=== PATIENT | male | born 1950 | race Caucasian/White ===

== ENCOUNTER 2017-09-19 19:40 | Inpatient (IN) | payer OTHER ==
[2017-09-19 19:44] VITALS: BMI 26.9
--- NOTE | 2017-09-19 20:00 | EDPD ---
HPI Stroke - General Time Seen by Provider: 09/19/17 19:45 Chief Complaint: Weakness/Neurological Deficit - History of Present Illness Narrative History of Present Illness (Free Text): 09/19/17 19:53 No Morin is a 67 year old male brought in by EMS, whose past medical history includes coronary artery bypass, CAD, hypertension, seizure disorder, paroxysmal atrial fibrillation, and hypercholesterolemia, with complaint of left arm numbness, weakness, and discomfort for the past couple of days. Patient also with noted left sided facial drooping onset unclear possibly just prior to arrival. Patient denies any chest pain, nausea, vomiting, diarrhea, shortness of breath, or any other complaint at this time. Onset:: Days Timing: Currently Symptomatic Context: Home Associated Symptoms: Numbness rTPA Inclusion/Exclusion - Refusal of Treatment Patient Refused Treatment: No - Inclusion Criteria for Altepase Patient is 18 years or Older: Yes The Clinical Diagnosis of Ischemic Stroke That is Causing a Potentially Disabling Neurological Deficit: No Time of Onset is Well Established to be Less Than 270 Minute Before Treatment Would Begin: No Risk/Benefit Discussed With Patient/Family Member Present: Yes - Exclusion Criteria for Altepase Uncontrolled Hypertension at Time of Treatment (Systolic BP above 185 or Diastolic BP above 110 mmHg): No Active Internal Bleeding: No Known Bleeding Diathesis Including but Not Limited to: Platelets Below 100,000/ mm,PTT Above 40 sec After Heparin Use, Current Use of Oral Anitcoagulant With INR Greater Than 1.7 or PT Greater Than 15 secs: No Evidence of an Intracranial Hemorrhage: No Evidence of Major Acute Infarct With Signs Greater Than 1/3 MCA Territory: No Suspicion of Subarachnoid Hemorrhage on Pretreatment Evaluation Even if CT Head Negative For Hemorrhage: No - Warning to TPA With Conditions Following Conditions Weighed Against Anticipated Benefit: No Condition: Stroke Serevity Too Mild Past Medical History - Provider Review Nursing Documentation Reviewed: Yes - Cardiac Hx Hypertension: Yes - Pulmonary Hx Respiratory Disorders: No Hx Asthma: No Hx Chronic Obstructive Pulmonary Disease (COPD): No Hx Emphysema: No - Neurological HX Cerebrovascular Accident: Yes - Renal Hx Renal Disorder: No - Endocrine/Metabolic Hx Endocrine Disorders: No - Hematological/Oncological Hx Anemia: No Hx Cancer: No - Musculoskeletal/Rheumatological Hx Falls: No - Gastrointestinal Hx Gastrointestinal Disorders: No - Psychiatric Hx Depression: No Hx Emotional Abuse: No Hx Physical Abuse: No Hx Substance Use: No - Surgical History Hx Arteriovenous Shunt: Yes Hx Coronary Artery Bypass Graft: Yes - Suicidal Assessment Feels Threatened In Home Enviroment: No Allergies/Home Meds Allergies/Adverse Reactions: Allergies No Known Allergies Allergy (Verified 01/27/12 13:30) Home Medications: Home Meds Medication Instructions Recorded Confirmed Amlodipine Besylate 10 mg PO DAILY 01/27/12 09/20/17 Enalapril Maleate [Enalapril] 20 mg PO DAILY 01/27/12 09/20/17 Metoprolol Succinate 50 mg PO DAILY 01/27/12 09/20/17 Review of Systems - Physician Review All systems were reviewed & negative as marked: Yes - Review of Systems Constitutional: absent: Fevers, Night Sweats Eyes: absent: Vision Changes ENT: absent: Hearing Changes Respiratory: absent: SOB, Cough Cardiovascular: absent: Chest Pain Gastrointestinal: absent: Abdominal Pain Genitourinary Male: absent: Dysuria Musculoskeletal: absent: Arthralgias Skin: absent: Rash, Pruritis Neurological: Other (Left arm numbness, weakness, and discomfort) Endocrine: absent: Diaphoresis Hemo/Lymphatic: absent: Adenopathy Psychiatric: absent: Anxiety, Depression ED Stroke Physical Exam Vital Signs Reviewed: Yes Mental Status: Positive for: Alert and Oriented X 3 - Systems Exam Head: Present: Atraumatic, Normocephalic Pupils: Present: PERRL Extroacular Muscles: Present: EOMI Conjunctiva: Present: Normal Mouth: Present: Moist Mucous Membranes Neck: Present: Normal Range of Motion Respiratory/Chest: Present: Clear to Auscultation, Good Air Exchange. No: Respiratory Distress, Accessory Muscle Use Cardiovascular: Present: Regular Rate and Rhythm, Normal S1, S2. No: Murmurs Abdomen: Present: Normal Bowel Sounds. No: Tenderness, Distention, Peritoneal Signs Back: Present: GCS, CN, SP Upper Extremity: Present: Normal Inspection, Normal ROM, Neurovascularly Intact. No: Cyanosis, Edema Lower Extremity: Present: Normal Inspection. No: Edema Neurologic: Present: GCS=15, Speech Normal, Motor Func Grossly Intact, Normal Sensory Function, Normal Cerebellar Funct, Norm Deep Tendon Reflexes, Gait Normal, Memory Normal, Normal 2Pt Descrimination, Facial Droop (Left-sided/ sparing of frontalis muscle) Skin: Present: Warm, Dry, Normal Color. No: Rashes Lymphatic: Present: OX3, NI, NC Psychiatric: Present: Alert, Oriented x 3, Normal Insight, Normal Concentration Medical Decision Making ED Course and Treatment: 09/19/17 20:29 Impression: 67 year old complaint of left arm numbness, weakness, and discomfort for the past couple of days. Differential Diagnosis included but are not limited to: CVA Plan: -- Head CT w/o contrast -- Chest X-ray -- EKG -- Type and Screen -- Labs -- Reassess and disposition Progress Notes: EKG: Ordered, reviewed, and independently interpreted the EKG. Rate : 104 BPM Rhythm : Atrial fibrillation Interpretation : Non-specific T wave changes. 09/19/17 19:45 Following exam, code stroke was called. 09/19/17 20:10 Case discussed with neurologist Dr. Lozoya. If no evidence of cerebral bleed, patient to be given 81mg. asa/300 Plavix. 09/19/17 20:45 CT Head IMPRESSION: 1. There is a small lacunar infarct within the superior left basal ganglia and paraventricular region, suggestive of a subacute infarct. An additional subacute lacunar infarct is identified within the left basal ganglia posteriorly. If there is a clinical concern for acute ischemic change, MRI is recommended. 2. There is a large area of hypodense encephalomalacia within the right cerebral hemisphere, consistent with an old right MCA infarct. A small chronic infarct is visualized within the left cerebellar lobe. 3. No acute intracranial hemorrhage. 4. There are scattered foci of hypodensity within the cerebral white matter, likely representing small vessel ischemic disease in a patient this age. 5. Atrophy. 6. Paranasal sinus disease is noted above. 09/19/17 20:50 CT Scan results discussed with Dr. Lozoya, pt not a candidate for tPA due to mild clinical findings and underlying history of a fib. Pt given ASA/Plavix, as previously recommended. Pt remains stable at this time. 09/19/17 21:03 Chest X-ray reviewed, shows no acute processes. Case discussed with Dr. Sauceda, who is aware and agrees with plan. Accepts pt in to her service. Pt will be admitted to Telemetry for CVA. Requests Dr. Allen and Dr. Lozoya on consult. - Lab Interpretations I have reviewed the lab results: Yes - RAD Interpretation Radiology Orders: 09/19/17 19:51 HEAD W/O (CODE STROKE) [CT] Stat CHEST PORTABLE [RAD] Stat Hat Trimmer: ED Physician, Radiologist - EKG Interpretation Interpreted by ED Physician: Yes Type: 12 lead EKG - Scribe Statement The provider has reviewed the documentation as recorded by the Johnie Shirley Provider Scribe Attestation: All medical record entries made by the Scribe were at my direction and personally dictated by me. I have reviewed the chart and agree that the record accurately reflects my personal performance of the history, physical exam, medical decision making, and the department course for this patient. I have also personally directed, reviewed, and agree with the discharge instructions and disposition. NIHSS Scale ([place]) Time Performed: 19:55 - How Severe is the Stoke Baseline Level of Consciousness: 0=Alert LOC to Questions: 0=Both comments correct LOC to commands: 0=Obeys both correctly Best Gaze: 0=Normal Visual: 0=No visual loss Facial: 2=Partial (lower face paralysis) Motor Arm - Left: 0=No drift Motor Arm - Right: 0=No drift Motor Leg - Left: 0=No drift Motor Leg - Right: 0=No drift Limb Ataxia: 0=Absent Sensory: 0=Normal Best Language: 0=No aphasia Dysarthia: 0=Normal articulation Extinction & Inattention (Neglect): 0=Normal, no object Score: 2 Risk Level: Minor Stroke Risk Disposition/Present on Arrival - Present on Arrival Any Indicators Present on Arrival: No History of DVT/PE: No History of Uncontrolled Diabetes: No Urinary Catheter: No History of Decub. Ulcer: No History Surgical Site Infection Following: None - Disposition Have Diagnosis and Disposition been Completed?: Yes Diagnosis: CVA (cerebral vascular accident) Disposition: HOSPITALIZED Disposition Time: 21:08 Patient Plan: Admission Patient Problems: Current Active Problems Problem Status Onset CVA (cerebral vascular accident) Acute Condition: STABLE
--- NOTE | 2017-09-19 20:32 | CT ---
EXAM: CT Head Without Intravenous Contrast EXAM DATE/TIME: 09/19/2017 7:51 PM CLINICAL HISTORY: The patient age is 67 years old and is male; Signs and symptoms; Weakness, facial; Additional info: Code stroke Facility exam id and description: Ct headstroke head w/o (code stroke) TECHNIQUE: Axial computed tomography images of the head/brain without intravenous contrast. All CT scans at this facility use one or more dose reduction techniques, viz.: automated exposure control; ma/kV adjustment per patient size (including targeted exams where dose is matched to indication; i.e. head); or iterative reconstruction technique. Coronal and sagittal reformatted images were created and reviewed. COMPARISON: No relevant prior studies available. FINDINGS: Brain: There is a small lacunar infarct within the superior left basal ganglia and paraventricular region, suggestive of a subacute infarct. An additional subacute lacunar infarct is identified within the left basal ganglia posteriorly. There is a large area of hypodense encephalomalacia within the right cerebral hemisphere, consistent with an old right MCA infarct. A small chronic infarct is visualized within the left cerebellar lobe. There are scattered foci of hypodensity within the cerebral white matter, likely representing small vessel ischemic disease in a patient this age. The acuity of the white matter disease is indeterminate. There is prominence of the ventricles and sulci, compatible with atrophy. No acute intracranial hemorrhage is seen. Midline shift: There is no midline shift. Ventricles: See above. Bones/joints: The calvarium demonstrates no evidence for a depressed fracture. Soft tissues: No acute abnormality. Vasculature: There is atherosclerotic calcification of the cavernous internal carotid arteries and distal vertebral arteries. Sinuses: Mucosal thickening with mucous retention cysts or polyps are visualized within the left maxillary sinus. Mastoid air cells: No mastoid effusion. IMPRESSION: 1. There is a small lacunar infarct within the superior left basal ganglia and paraventricular region, suggestive of a subacute infarct. An additional subacute lacunar infarct is identified within the left basal ganglia posteriorly. If there is a clinical concern for acute ischemic change, MRI is recommended. 2. There is a large area of hypodense encephalomalacia within the right cerebral hemisphere, consistent with an old right MCA infarct. A small chronic infarct is visualized within the left cerebellar lobe. 3. No acute intracranial hemorrhage. 4. There are scattered foci of hypodensity within the cerebral white matter, likely representing small vessel ischemic disease in a patient this age. 5. Atrophy. 6. Paranasal sinus disease is noted above.
[2017-09-19 20:56] LABS: BASO # 0.02 K/mm3 (0.0-2.0); BASO % 0.2 % (0.0-3.0); EOS # 0.2 (0.0-0.7); EOS % 1.9 % (1.5-5.0); GRAN # 4.57 (1.4-6.5); GRAN % 55.6 % (50.0-68.0); HEMOGLOBIN 15.2 g/dL (14.0-18.0); LYMPH # 2.7 (1.2-3.4); LYMPH % 32.8 % (22.0-35.0); MEAN CELL VOLUME 93.8 fl (80.0-105.0); MEAN CORPUSCULAR HEMOGLOBIN 31.3 pg (25.0-35.0); MEAN CORPUSCULAR HGB CONC 33.4 g/dl (31.0-37.0); MEAN PLATELET VOLUME 10.4 fl (7.0-11.0); MONO # 0.8 (0.1-0.6); MONO % 9.5 % (1.0-6.0); RBC 4.85 10^6/uL (3.5-6.1); RED CELL DISTRIBUTION WIDTH 12.9 % (11.5-14.5); WHITE BLOOD COUNT 8.2 10^3/ul (4.5-11.0)
[2017-09-19 21:06] LABS: ALB/GLOB RATIO 1.2 (1.1-1.8); ALBUMIN 4.3 g/dL (3.0-4.8); ALT/SGPT 33 U/L (7-56); AST/SGOT 27 U/L (17-59); BLOOD UREA NITROGEN 16 mg/dL (7-21); CALCIUM 9.7 mg/dL (8.4-10.5); GFR AFRICAN-AMERICAN > 60; GFR NON-AFRICAN AMERICAN > 60; HDL CHOLESTEROL 41 mg/dL (29-60)
[2017-09-19 21:12] LABS: INR 1.33 (0.93-1.08); PROTHROMBIN TIME 15.2 SECONDS (9.4-12.5)
[2017-09-19 21:13] LABS: PARTIAL THROMBOPLASTIN TIME 31.9 Seconds (25.1-36.5)
[2017-09-19 21:16] LABS: TROPONIN I < 0.01 ng/mL
[2017-09-19 21:17] LABS: LDL CHOLESTEROL 138 mg/dL (0-129)
[2017-09-19] MEDS ORDERED: Sodium Chloride 0.9% 1,000 ML IV STA (21:31)
[2017-09-20] MEDS ORDERED: levETIRAcetam 1,000 MG in Sodium Chloride 0.9% 100 ML IV STA (04:50)
[2017-09-20] MEDS ORDERED: Metoprolol 1 mg/ml Inj IVP ONE (05:18)
--- NOTE | 2017-09-20 06:34 | PCM.RRT ---
<Rolando Pan - Last Filed: 09/20/17 06:31> POINTER MACHINE OPERATOR Nurse Assessment - Situation Date: 09/20/17 Time POINTER MACHINE OPERATOR was called: 04:44 POINTER MACHINE OPERATOR Responder Arrival Time: 04:46 POINTER MACHINE OPERATOR Location:: [address] [place] [address] Room Number: [id number] POINTER MACHINE OPERATOR Reason for Call: Change in Mental Status POINTER MACHINE OPERATOR Called By: RN - IV IV Inserted during POINTER MACHINE OPERATOR?: No - Respiratory Oxygen Delivery Method: Nasal Cannula @L/min Oxygen Flow Rate: 2 Received Nebulizer Treatments:: No Was the Patient Ventilated with Bag/Mask 100% O2?: No Secretions Suctioned?: Yes Was the Patient Intubated?: No Was the Patient Placed on a Ventilator?: No - Medication Medications Administered During POINTER MACHINE OPERATOR: Keppra 1,000mg IV - Diagnostic Test Ordered EKG: No Chest X-Ray: No CT Scan: No CPR started during POINTER MACHINE OPERATOR?: No - Vital Signs Vital Sign: Rapid Response Vital Sign Blood Pressure 148/109 Pulse Rate 154 Respiratory Rate 24 Oxygen Saturation 96 - Finger Stick Blood Glucose Finger Stick Blood Glucose: 112 - Time POINTER MACHINE OPERATOR Ended Time POINTER MACHINE OPERATOR Ended: 04:57 - Vital Signs at end of POINTER MACHINE OPERATOR Vital Signs at end of POINTER MACHINE OPERATOR: Rapid Response End Vital Sign Blood Pressure 168/102 Pulse Rate 153 Respiratory Rate 22 O2 Sat by Pulse Oximetry 94 - Respiratory Oxygen Delivery Method: Nasal Cannula @L/min Oxygen Flow Rate: 2 - Constitutional Appears: No Acute Distress - Eyes Eye Exam: Normal appearance - Respiratory Exam Respiratory Exam: NORMAL BREATHING PATTERN - Cardiovascular Exam Cardiovascular Exam: Irregular Rhythm - Neurological Exam Neurological Exam: Alert, Awake Plan - Assessment of Findings&Treatment Plan POINTER MACHINE OPERATOR was called because nursing staff witnessed seizure. Upon arrival patient was post ictal. Chart reviewed, patient started on Keppra, rhythm was monitored on the telemetry. Also given lopressor 2.5 BID, patient vitals stable. <Jameel Zamudio - Last Filed: 09/21/17 01:17> POINTER MACHINE OPERATOR Nurse Assessment - Vital Signs Vital Sign: Rapid Response Vital Sign Blood Pressure 148/109 Pulse Rate 154 Respiratory Rate 24 Oxygen Saturation 96 - Vital Signs at end of POINTER MACHINE OPERATOR Vital Signs at end of POINTER MACHINE OPERATOR: Rapid Response End Vital Sign Blood Pressure 168/102 Pulse Rate 153 Respiratory Rate 22 O2 Sat by Pulse Oximetry 94
[2017-09-20 07:34] LABS: BASO # 0.01 K/mm3 (0.0-2.0); BASO % 0.2 % (0.0-3.0); EOS % 0.5 % (1.5-5.0); GRAN # 5.32 (1.4-6.5); GRAN % 80.2 % (50.0-68.0); LYMPH # 0.8 (1.2-3.4); LYMPH % 12.2 % (22.0-35.0); MEAN CELL VOLUME 91.6 fl (80.0-105.0); MEAN CORPUSCULAR HEMOGLOBIN 30.9 pg (25.0-35.0); MEAN CORPUSCULAR HGB CONC 33.7 g/dl (31.0-37.0); MEAN PLATELET VOLUME 10.2 fl (7.0-11.0); MONO # 0.5 (0.1-0.6); MONO % 6.9 % (1.0-6.0); RBC 4.53 10^6/uL (3.5-6.1); RED CELL DISTRIBUTION WIDTH 12.8 % (11.5-14.5); WHITE BLOOD COUNT 6.6 10^3/ul (4.5-11.0)
[2017-09-20 07:55] LABS: BLOOD UREA NITROGEN 12 mg/dL (7-21); CALCIUM 9.2 mg/dL (8.4-10.5); GFR AFRICAN-AMERICAN > 60; GFR NON-AFRICAN AMERICAN > 60
--- NOTE | 2017-09-20 08:16 | RAD ---
PROCEDURE: CHEST RADIOGRAPH, 1 VIEW HISTORY: cva COMPARISON: 04/14/2017 FINDINGS: LUNGS: Clear. PLEURA: No pneumothorax or pleural fluid seen. CARDIOVASCULAR: Moderate cardiomegaly OSSEOUS STRUCTURES: Sternal wires VISUALIZED UPPER ABDOMEN: Normal. OTHER FINDINGS: None. IMPRESSION: No active disease.
[2017-09-20] MEDS ORDERED: Metoprolol Succinate 50 mg XL Tab PO SCH (10:00)
[2017-09-20] MEDS ORDERED: Potassium Chloride 20 mEq ER Tab PO ONE (10:23)
--- NOTE | 2017-09-20 10:59 | CARD ---
APPROVED REPORT EKG Measurement Heart [id number] <Conclusion> Atrial fibrillation with rapid ventricular response Nonspecific T wave abnormality, probably digitalis effect Abnormal ECG
--- NOTE | 2017-09-20 17:40 | CP.PCM.CON ---
History of Present Illness - History of Present Illness History of Present Illness: Mr. Morin is a 67-year-old man with a past medical history of previous CVA, atrial fibrillation, seizure disorder, who presented to the ED with worsening weakness. This morning an ASSISTANT HEALTH EDUCATOR was called after he was found to have a generalized tonic-clonic seizure and post ictal state. He was given Keppra 1000 mg and has not had any other seizures since. Currently, the patient is back to baseline and informed me that he has a history of seizures, but had stopped his AED because he felt he was taking too many medications. His daughter helps him with his meds. He states that his current left side weakness is similar to baseline. He had no other complaints and said that he is feeling better now. Review of Systems - Review of Systems All systems: reviewed and no additional remarkable complaints except Past Patient History - Past Social History Smoking Status: Never Smoked - CARDIAC Hx Cardiac Disorders: Yes Hx Hypertension: Yes - PULMONARY Hx Respiratory Disorders: No Hx Asthma: No Hx Chronic Obstructive Pulmonary Disease (COPD): No Hx Emphysema: No - NEUROLOGICAL HX Cerebrovascular Accident: Yes - RENAL Hx Chronic Kidney Disease: No - ENDOCRINE/METABOLIC Hx Endocrine Disorders: No - HEMATOLOGICAL/ONCOLOGICAL Hx Anemia: No Hx Cancer: No - MUSCULOSKELETAL/RHEUMATOLOGICAL Hx Falls: No - GASTROINTESTINAL Hx Gastrointestinal Disorders: No - PSYCHIATRIC Hx Depression: No Hx Emotional Abuse: No Hx Physical Abuse: No Hx Substance Use: No - SURGICAL HISTORY Hx Arteriovenous Shunt: Yes Hx Coronary Artery Bypass Graft: Yes Meds Allergies/Adverse Reactions: Allergies Allergy/AdvReac Type Severity Reaction Status Date / Time No Known Allergies Allergy Verified 01/27/12 13:30 - Medications Medications: Current Medications Apixaban (Eliquis) 5 mg PO BID [facility] PRN Reason: Protocol Last Admin: 09/20/17 13:05 Dose: 5 mg Aspirin (Aspirin Chewable) 81 mg PO DAILY [facility] Last Admin: 09/20/17 12:58 Dose: 81 mg Atorvastatin Calcium (Lipitor) 20 mg PO DAILY [facility] Last Admin: 09/20/17 12:59 Dose: 20 mg Diltiazem HCl (Cardizem) 30 mg PO QID [facility] Last Admin: 09/20/17 15:33 Dose: 30 mg Lisinopril (Zestril) 20 mg PO DAILY [facility] Last Admin: 09/20/17 13:00 Dose: 20 mg Metoprolol Succinate (Toprol Xl) 50 mg PO DAILY [facility] Last Admin: 09/20/17 13:00 Dose: Not Given Metoprolol Tartrate (Lopressor) 25 mg PO BID [facility] Last Admin: 09/20/17 12:59 Dose: 25 mg Physical Exam - Constitutional Appears: Well - Head Exam Head Exam: ATRAUMATIC, NORMAL INSPECTION, NORMOCEPHALIC - Eye Exam Eye Exam: EOMI, Normal appearance, PERRL - ENT Exam ENT Exam: Mucous Membranes Moist, Normal Exam - Cardiovascular Exam Cardiovascular Exam: REGULAR RHYTHM, +S1, +S2 - GI/Abdominal Exam GI & Abdominal Exam: Normal Bowel Sounds, Soft. absent: Tenderness - Rectal Exam Rectal Exam: Deferred - Neurological Exam Neurological exam: Abnormal Gait, CN II-XII Intact, Oriented x3 Additional comments: Left side weakness as compared to the right (4/5 strength), right side is full in strength, sensation is normal to LT/P throughout, reflexes are brisk on the right, slight right facial droop noted. Plantar response is upgoing on the right. NIHSS= 4 Results - Vital Signs Recent Vital Signs: Last Vital Signs Temp 97.1 F L 09/20/17 12:00 Pulse 77 09/20/17 15:33 Resp 20 09/20/17 12:00 BP 148/73 09/20/17 15:33 Pulse Ox 99 09/20/17 06:00 - Labs Result Diagrams: 09/20/17 06:45 09/20/17 06:45 Labs: Laboratory Results - last 24 hr 09/20/17 09/20/17 09/20/17 04:47 06:45 06:45 WBC 6.6 RBC 4.53 Hgb 14.0 Hct 41.5 L MCV 91.6 MCH 30.9 MCHC 33.7 RDW 12.8 Plt Count 162 MPV 10.2 Gran % 80.2 H Lymph % (Auto) 12.2 L [place] % (Auto) 6.9 H Eos % (Auto) 0.5 L Baso % (Auto) 0.2 Gran # 5.32 Lymph # 0.8 L [place] # 0.5 Eos # 0.0 Baso # 0.01 Sodium Potassium Chloride Carbon Dioxide Anion Gap BUN Creatinine Est GFR ( Amer) Est GFR (Non-Af Amer) POC Glucose (mg/dL) 112 H Random Glucose Calcium Blood Type Confirm O POSITIVE 09/20/17 09/20/17 06:45 16:15 WBC RBC Hgb Hct MCV MCH MCHC RDW Plt Count MPV Gran % Lymph % (Auto) [place] % (Auto) Eos % (Auto) Baso % (Auto) Gran # Lymph # [place] # Eos # Baso # Sodium 139 Potassium 3.3 L Chloride 102 Carbon Dioxide 24 Anion Gap 16 BUN 12 Creatinine 0.7 L Est GFR ( Amer) > 60 Est GFR (Non-Af Amer) > 60 POC Glucose (mg/dL) 108 Random Glucose 140 H Calcium 9.2 Blood Type Confirm Assessment & Plan (1) Seizure Assessment and Plan: He seems to be at his baseline now. He may have had a seizure and post-ictal state with Hayes's paralysis. However, it is also possible with his history of atrial fibrillation, that he may have had a new infarct. I recommend the followin. Telemetry 2. MRI/MRA of the brain without contrast 3. Continue Keppra 500 mg BID for seizure prophylaxis 4. Continue Eliquis 5 mg BID for stroke prevention 5. PT/OT eval and treatment 6. SCD for DVT Px 7. Echocardiogram with bubble study 8. Fluids with NS at 100 mL/hr 9. Increase Lipitor to 40 mg daily to reduce LDL to below 70 10. Case management consult Thank you. Status: Acute Priority: High
--- NOTE | 2017-09-20 19:04 | CON ---
DATE: 09/20/2017 CONSULT SERVICE: Cardiology. REASON FOR CONSULTATION AND FOLLOWUP: Cardiac evaluation, admitted with possible CVA, history of coronary artery disease with coronary artery bypass surgery. HISTORY OF PRESENT ILLNESS: This is a 67-year-old male with a past medical history of coronary artery disease, possible CABG, hypertension, seizure disorder, paroxysmal atrial fibrillation, and hyperlipidemia brought because of the complaints of numbness. The patient is a very poor historian, information is obtained from the chart. The patient has a left facial droop. While the patient was in the floor, he had seizure and the heart rate went up to 180, Cardiology consult was called. The patient denies any chest pain. Denies any shortness of breath. Denies any palpitation. PAST MEDICAL HISTORY: Significant for coronary artery disease, hypertension, and hyperlipidemia. Past history significant for possible aortic dissection, questionable history of aortic repair, history of open heart surgery, history of paroxysmal atrial fibrillation, history of coronary artery bypass surgery, and history of seizure disorder. HISTORY OF PREVIOUS CARDIAC WORKUP: The patient had a stress test on 02/07/2012 that showed essentially normal myocardial perfusion study, fixed defect with an ejection fraction of 57%. CURRENT MEDICATIONS: The patient has been taking at home metoprolol succinate 50 mg daily, enalapril 20 mg daily, and amlodipine 10 mg daily. ALLERGIES: NO KNOWN DRUG ALLERGIES. REVIEW OF SYSTEMS: As per HPI. PHYSICAL EXAMINATION: VITAL SIGNS: As follows; temperature afebrile, heart rate 92, and blood pressure 149/86. HEENT: PERRLA. Extraocular muscles intact. NECK: Supple. No carotid bruits or thyromegaly. CHEST: Clear to auscultation. HEART: S1 and S2 regular. ABDOMEN: Soft. EXTREMITIES: Clubbing and cyanosis negative. LABORATORY DATA: EKG shows atrial fibrillation with rapid heart rate of 104. Blood workup as follows; WBC 6.6, hemoglobin 14, hematocrit 41.5, and platelet count 162. Chemistry shows sodium 139, potassium 3.3, chloride 102, carbon dioxide 24, anion gap of 12, BUN 16, and creatinine 0.7. Troponin is 0.01. CAT scan of the head show small lacunar infarct superior at the left basal ganglia, additional subacute lacunar infarct identified in the left basal ganglia as well. IMPRESSION: A 67-year-old male with past medical history significant for coronary artery disease, status post coronary artery bypass graft surgery, history of chronic atrial fibrillation, diabetes, hypertension, hyperlipidemia, history of seizure disorder, history of chronic atrial fibrillation, questionable history of aortic dissection and history of repair, came in with atrial fibrillation, acute cerebrovascular accident, and seizure. Last night, he had a seizure with rapid response around 6 a.m., found to be in altered mental status, and the patient has a witnessed seizure as per the nurse, Davis, and the heart rate was fast, so the patient was given 2.5 verapamil twice, rate is relatively controlled. At that time, the patient's heart rate was 149/92. RECOMMENDATIONS: Continue beta-claudio and Cardizem to control the heart. We will get an echo to assess the LV function. Neurological evaluation. Anticoagulation as per Neurology. We will get also the bubble study to rule out PFO. We will also follow with you. Thank you Dr. Sauceda for providing us the opportunity in taking care of the patient, No Morin. Marisol Allen MD
--- NOTE | 2017-09-21 00:26 | HP ---
HISTORY OF PRESENT ILLNESS: Mr. Morin is a 67-year-old male brought to the ED by EMS with complaints of left arm numbness and weakness and discomfort for the past few days. The patient also noted left-sided facial droop prior to arrival. He has history of atrial fibrillation and history of seizures in the past. He is not on any anticoagulation. History of coronary artery disease, status post bypass. Denies any chest pain. No shortness of breath. Troponins were negative. This morning, rapid response was called at 4 a.m. because of tonic-clonic seizures. He was given Keppra IV. He has been baseline since then. CT head showed small lacunar infarction in basal ganglia periventricular region suggestive of subacute infarction. Encephalomalacia and right cerebral hemisphere, no acute intracranial hemorrhage, scattered hypodensity in the cerebral matter with small vessel ischemic disease. Code stroke was called in the ER, but he was not a candidate for thrombolysis. Currently, he is stable, he is communicating, and not able to move left arm. PAST MEDICAL HISTORY: Hypertension, atrial fibrillation, COPD, and CVA. PAST SURGICAL HISTORY: Coronary artery bypass surgery. ALLERGIES: NO KNOWN DRUG ALLERGIES. FAMILY HISTORY: Noncontributory. HOME MEDICATIONS: Amlodipine 10 mg daily, enalapril 20 mg daily, and metoprolol 50 mg daily. REVIEW OF SYSTEMS: As per HPI. Rest of 12-point review of systems reviewed and negative. PHYSICAL EXAMINATION: GENERAL: Comfortable in bed, in no acute distress. Communicative, not moving left arm and left leg. Speech normal. HEENT: Negative. CHEST: Air entry present and equal bilaterally. No added sounds. CARDIOVASCULAR: Heart rate is irregularly irregular. No murmur. No gallop. ABDOMEN: Soft and nontender. No hepatosplenomegaly. EXTREMITIES: No edema. SPINE: Nontender. SKIN: No petechiae. No rash. LABORATORY DATA: White count 8.2, hemoglobin 15.2, hematocrit 45.5, and platelets count 194. Sodium 139, potassium 3.3, creatinine 0.7, and glucose 140. INR 1.3, PT 15.2, and PTT 31.9. ASSESSMENT: 1. Left-sided stroke. 2. Atrial fibrillation. 3. Chronic obstructive pulmonary disease. 4. Coronary artery disease. 5. New onset seizure, tonic-clonic generalized. PLAN: He will be admitted to the hospital tele monitoring. Neurology consultation Dr. Felix appreciated. product support consultant Dr. Allen requested. We will start anticoagulation Eliquis 5 mg p.o. b.i.d., aspirin 81 mg daily, we will start Lipitor 20 mg daily, Cardizem 30 mg p.o. three times a day, Keppra 500 mg p.o. b.i.d., lisinopril 20 mg daily, and metoprolol 25 mg p.o. b.i.d. MRI and MRA of the head. Echocardiogram for evaluation. We will continue to monitor closely. Seizure precaution. swallow evaluation passed. Heart-healthy diet starting today. Naila Sauceda MD MTDD
[2017-09-21] MEDS ORDERED: cefTRIAXone 1 gm 1 GM/100 ML BAG IVPB STA (00:42)
[2017-09-21 01:44] LABS: HEMOGLOBIN 14.3 g/dL (14.0-18.0); MEAN CELL VOLUME 91.9 fl (80.0-105.0); MEAN CORPUSCULAR HEMOGLOBIN 31.5 pg (25.0-35.0); MEAN CORPUSCULAR HGB CONC 34.3 g/dl (31.0-37.0); MEAN PLATELET VOLUME 10.1 fl (7.0-11.0); RBC 4.54 10^6/uL (3.5-6.1); RED CELL DISTRIBUTION WIDTH 12.8 % (11.5-14.5); WHITE BLOOD COUNT 9.6 10^3/ul (4.5-11.0)
--- NOTE | 2017-09-21 06:25 | CP.PCM.PN ---
Subjective - Date & Time of Evaluation Date of Evaluation: 09/21/17 Time of Evaluation: 00:40 - Subjective Subjective: pt has temp of 102.2 .pt denies complaints. Objective - Vital Signs/Intake and Output Vital Signs (last 24 hours): Temp Pulse Resp BP Pulse Ox 98.8 F 90 20 137/83 96 09/21/17 06:00 09/21/17 06:00 09/21/17 06:00 09/21/17 06:00 09/21/17 06:00 Intake and Output: 09/20/17 09/21/17 18:59 06:59 Output Total 500 Balance -500 - Medications Medications: Current Medications Apixaban (Eliquis) 5 mg PO BID [facility] PRN Reason: Protocol Last Admin: 09/20/17 17:32 Dose: 5 mg Aspirin (Aspirin Chewable) 81 mg PO DAILY [facility] Last Admin: 09/20/17 12:58 Dose: 81 mg Atorvastatin Calcium (Lipitor) 20 mg PO DAILY [facility] Last Admin: 09/20/17 12:59 Dose: 20 mg Diltiazem HCl (Cardizem) 30 mg PO QID [facility] Last Admin: 09/20/17 22:08 Dose: 30 mg Levetiracetam (Keppra) 500 mg PO BID [facility] Last Admin: 09/20/17 22:09 Dose: 500 mg Lisinopril (Zestril) 20 mg PO DAILY [facility] Last Admin: 09/20/17 13:00 Dose: 20 mg Metoprolol Succinate (Toprol Xl) 50 mg PO DAILY [facility] Last Admin: 09/20/17 13:00 Dose: Not Given Metoprolol Tartrate (Lopressor) 25 mg PO BID [facility] Last Admin: 09/20/17 17:33 Dose: 25 mg - Labs Labs: 09/21/17 01:20 09/20/17 06:45 PT 15.2 SECONDS (9.4-12.5) H 09/19/17 19:50 INR 1.33 (0.93-1.08) H 09/19/17 19:50 APTT 31.9 Seconds (25.1-36.5) 09/19/17 19:50 - Constitutional Appears: No Acute Distress - Head Exam Head Exam: NORMOCEPHALIC - Eye Exam Pupil Exam: PERRL - ENT Exam ENT Exam: Mucous Membranes Moist - Neck Exam Neck Exam: Full ROM - Respiratory Exam Respiratory Exam: Clear to Ausculation Bilateral - Cardiovascular Exam Cardiovascular Exam: RRR, +S1, +S2 - GI/Abdominal Exam GI & Abdominal Exam: Normal Bowel Sounds - Neurological Exam Neurological Exam: Awake - Psychiatric Exam Psychiatric exam: Normal Mood - Skin Skin Exam: Warm Assessment and Plan - Assessment and Plan (Free Text) Assessment: fever . s/p cva . atrial fib. Plan: cbc .blood c/s u/a , c/s . rocephine 1 gm x1.
--- NOTE | 2017-09-21 06:51 | CP.PCM.PN ---
Subjective - Date & Time of Evaluation Date of Evaluation: 09/21/17 Time of Evaluation: 06:48 - Subjective Subjective: Mr. Morin was seen and examined at the bedside. He is alert, oriented , but episode of forgetfulness. It took several minutes before he was able to state person, place, and time. He denies any headache, dizziness, blurred vision. He is able to follow some commands. He remains weak on the left side with left side facial palsy. He has left arm drift. There was no untoward events overnight. Objective - Vital Signs/Intake and Output Vital Signs (last 24 hours): Temp Pulse Resp BP Pulse Ox 98.8 F 90 20 137/83 96 09/21/17 06:00 09/21/17 06:00 09/21/17 06:00 09/21/17 06:00 09/21/17 06:00 Intake and Output: 09/20/17 09/21/17 18:59 06:59 Output Total 500 Balance -500 - Medications Medications: Current Medications Apixaban (Eliquis) 5 mg PO BID [facility] PRN Reason: Protocol Last Admin: 09/20/17 17:32 Dose: 5 mg Aspirin (Aspirin Chewable) 81 mg PO DAILY [facility] Last Admin: 09/20/17 12:58 Dose: 81 mg Atorvastatin Calcium (Lipitor) 40 mg PO DIN [facility] Diltiazem HCl (Cardizem) 30 mg PO QID [facility] Last Admin: 09/20/17 22:08 Dose: 30 mg Levetiracetam (Keppra) 500 mg PO BID [facility] Last Admin: 09/20/17 22:09 Dose: 500 mg Lisinopril (Zestril) 20 mg PO DAILY [facility] Last Admin: 09/20/17 13:00 Dose: 20 mg Metoprolol Succinate (Toprol Xl) 50 mg PO DAILY [facility] Last Admin: 09/20/17 13:00 Dose: Not Given Metoprolol Tartrate (Lopressor) 25 mg PO BID [facility] Last Admin: 09/20/17 17:33 Dose: 25 mg - Labs Labs: 09/21/17 01:20 09/20/17 06:45 PT 15.2 SECONDS (9.4-12.5) H 09/19/17 19:50 INR 1.33 (0.93-1.08) H 09/19/17 19:50 APTT 31.9 Seconds (25.1-36.5) 09/19/17 19:50 - Constitutional Appears: No Acute Distress - Head Exam Head Exam: NORMAL INSPECTION - Neurological Exam Neurological Exam: Alert, Awake Neuro motor strength exam: Left Upper Extremity: 3, Right Upper Extremity: 5, Left Lower Extremity: 3, Right Lower Extremity: 5 Additional comments: Left side weakness as compared to the right (4/5 strength), right side is full in strength, sensation is normal to LT/P throughout, reflexes are brisk on the right, Assessment and Plan (1) Seizure Assessment & Plan: Case discussed with Dr. Lozoya, continue all current medical, physical, and occupational regimens. Pending echocardiogram, MRI of the brain, MRA of the head and neck. Recommend to increase lipitor from 20 mg PO daily to 40 mg PO daily to keep the LDL below 70. Status: Acute
[2017-09-21 08:51] LABS: URINE BILIRUBIN NEGATIVE (NEGATIVE); URINE BLOOD TRACE-LYSED (NEGATIVE); URINE GLUCOSE (UA) NEGATIVE (NEGATIVE); URINE LEUKOCYTE ESTERASE NEGATIVE Leu/uL (NEGATIVE); URINE NITRATE NEGATIVE (NEGATIVE); URINE PROTEIN NEGATIVE mg/dL (<30 mg/dL); URINE UROBILINOGEN 0.2 E.U./dL (<1 E.U./dL)
[2017-09-21 08:52] LABS: URINE APPEARANCE CLEAR (CLEAR); URINE COLOR YELLOW (YELLOW)
[2017-09-21 09:00] LABS: URINE BACTERIA TRACE (NEG); URINE EPITHELIAL CELLS 0 - 2 /hpf (0-5); URINE WBC 0 - 2 /hpf (0-6)
--- NOTE | 2017-09-21 10:15 | RAD ---
HISTORY: Temp spiked COMPARISON: 09/19/2017. FINDINGS: LUNGS: The lungs are well inflated. There is mild pulmonary venous congestion. There is a stable calcified nodule in the right upper lobe. There left lower lobe atelectasis/scarring. No focal consolidation. PLEURA: No significant pleural effusion identified, no pneumothorax apparent. CARDIOVASCULAR: There is persistent moderate cardiomegaly. Status post CABG. OSSEOUS STRUCTURES: No significant abnormalities. VISUALIZED UPPER ABDOMEN: Normal. OTHER FINDINGS: None. IMPRESSION: Persistent moderate cardiomegaly and pulmonary venous congestion. No active pulmonary disease.
[2017-09-21] MEDS: diltiaZEM 120 mg/24 Hours CD Cap PO SCH (10:27)
[2017-09-21] MEDS: levETIRAcetam 500 mg/5ml UD cups PO SCH ×2 (10:57→18:13)
--- NOTE | 2017-09-21 14:26 | MRI ---
PROCEDURE: MRI BRAIN WITHOUT CONTRAST HISTORY: possible new stroke COMPARISON: None. TECHNIQUE: Multiplanar, multisequence MR images of the brain were obtained without intravenous contrast enhancement. FINDINGS: HEMORRHAGE: None DWI: No evidence of an acute or early subacute infarction. BRAIN PARENCHYMA: No mass effect or edema. There is a large chronic infarct in the right hemisphere with cystic encephalomalacia measuring 3.2 x 7.5 cm in size surrounded by non cystic encephalomalacia. VENTRICLES: Unremarkable. No hydrocephalus. CRANIUM: Unremarkable. ORBITS: Grossly unremarkable. PARANASAL SINUSES/MASTOIDS: Clear VASCULAR SYSTEM: Skull base flow voids intact. OTHER FINDINGS: None. IMPRESSION: Large area of chronic encephalomalacia in the right hemisphere. No evidence of acute infarct.
--- NOTE | 2017-09-21 14:45 | PN ---
DATE: 09/21/2017 REASON FOR CONSULTATION AND FOLLOWUP: Cardiac evaluation and admitted with possible CHF, coronary artery disease, history of coronary artery bypass surgery, history of atrial fibrillation. SUBJECTIVE: The patient denies any chest pain, shortness of breath, or any palpitation. OBJECTIVE: GENERAL: Not in apparent distress. Lying flat in the bed. VITAL SIGNS: Temperature afebrile, heart rate 70 and blood pressure 138/70. HEENT: PERRLA. Extraocular muscles intact. NECK: Supple. No carotid bruits or thyromegaly. CHEST: Clear to auscultation. HEART: S1 and S2, regular. ABDOMEN: Soft. EXTREMITIES: Clubbing, cyanosis negative. LABORATORY DATA: Blood workup as follows, WBC 9.3, hemoglobin 14.3, hematocrit 41.7, platelet count 169. Chemistry shows sodium 139, potassium 3.2, chloride of 102, carbon dioxide 14, anion gap of 15, BUN 12, creatinine 0.9. IMPRESSION: Acute cerebrovascular accident, probably thromboembolic, atrial fibrillation, coronary artery disease, coronary artery bypass graft 10 years ago. [facility] coronary artery bypass graft 10 or 11 years ago. Last stress test 02/07/2012, essentially normal fixed defect. Had hypertension and hyperlipidemia. RECOMMENDATION: Yesterday, discussed with Dr. Sauceda, have started Eliquis for AFib. Continue Cardizem. We will change to Cardizem CD today and we will continue low-dose beta claudio, continue rehab, will follow with you. We will change the Cardizem CD and we will follow with you. Thank you Dr. Sauceda for providing us the opportunity in taking care of the patient. We will follow with you. Marisol Allen MD
--- NOTE | 2017-09-21 14:57 | MRI ---
PROCEDURE: MR Angiography of the neck without contrast HISTORY: evaluate for stenosis COMPARISON: None available. TECHNIQUE: 3D [id number] angiography of the neck was performed. Rotating maximum intensity projection images of the cervical carotid and vertebral arteries were generated. The origins of the common carotid arteries were not visualized, which is a limitation inherent to the non-contrast time of flight technique. The study is limited by motion artifact FINDINGS: RIGHT CAROTID ARTERIES: There is carotid tortuosity but no evidence of stenosis. LEFT CAROTID ARTERIES: Carotid tortuosity but no evidence of stenosis. VERTEBRAL ARTERIES: Right Vertebral Artery: Normal. Left Vertebral Artery: Normal. OTHER FINDINGS: None. IMPRESSION: Limited study. No evidence of carotid stenosis or occlusion
--- NOTE | 2017-09-21 14:59 | MRI ---
PROCEDURE: Magnetic Resonance Angiography Brain HISTORY: rule out vessel occlusion COMPARISON: None available. TECHNIQUE: 3D time of flight MR angiography of the intracranial arteries was performed. Rotating maximum intensity projection images were generated. The study is limited by motion artifact with nonvisualization of the distal branches FINDINGS: THERE IS NONVISUALIZATION OF THE DISTAL BRANCHES OF THE MCA AND SOFIA. INTERNAL CAROTID ARTERIES ARE PATENT. BASILAR ARTERY IS PATENT: IMPRESSION: Limited study. No evidence of proximal occlusion
[2017-09-21] MEDS: Cefepime 1gm in NS 100ml 1 GM/100 ML BAG IVPB SCH (23:07)
--- NOTE | 2017-09-22 00:10 | PN ---
DATE: 09/21/2017 SUBJECTIVE: He is comfortable in bed, in no acute distress. He developed tachycardia, developed 101 fever today. No cough. No expectoration. No burning in the urine. Chest x-ray was done yesterday, did not show any infiltrate, just minimal congestion. MRI of the head showed encephalomalacia in the cerebral hemisphere. MRA of the head and neck did not show any occlusion. He has left upper arm numbness and weakness. He was started on regular diet, able to swallow without any difficulty. REVIEW OF SYSTEMS: As per HPI, rest of 12-point review of systems reviewed and negative. PHYSICAL EXAMINATION: VITAL SIGNS: Temperature, T-max 101, blood pressure 123/89, heart rate is 83 per minute, respiratory rate 18 per minute, and oxygen saturation 96% on room air. HEENT: Normal. NECK: Supple. No lymphadenopathy. CHEST: Air entry present and equal bilateral. No added sounds. CARDIOVASCULAR: S1 and S2 irregularly irregular. No murmur. No gallop. ABDOMEN: Soft, nontender. No hepatosplenomegaly. EXTREMITIES: No edema, left-sided weakness present. LABORATORY DATA: White count 9.6, hemoglobin 14.3, hematocrit 41.7, platelets 169. Glucose 150. UA negative. MEDICATIONS: Tylenol 650 q.6 hours p.r.n., Eliquis 5 mg p.o. b.i.d., aspirin 81 mg daily, Lipitor 40 mg daily, diltiazem 120 mg daily, Keppra 500 mg p.o. b.i.d., lisinopril 20 mg daily, metoprolol 25 mg p.o. b.i.d. ASSESSMENT: 1. Left-sided stroke. 2. Atrial fibrillation, rapid heart rate. 3. New onset fever. 4. Chronic obstructive pulmonary disease. 5. Coronary artery disease. 6. New onset seizure. 7. fever PLAN: MRI/MRA reviewed, showed left cerebral encephalomalacia, no arterial obstruction on MRA. We will continue anticoagulation with Eliquis 5 mg p.o. b.i.d. New onset fever, chest x-ray negative, ID consultation with Dr. Garzon requested, started on cefepime and doxycycline p.o. Urine culture, UA, blood culture to be sent. New onset seizure, he is currently on Keppra oral b.i.d., no new episodes. Echocardiogram requested for evaluation. Discussed with the sample case porter. He will need subacute rehab once stable. Naila Sauceda MD JACKY
--- NOTE | 2017-09-22 01:27 | CP.PCM.PN ---
Subjective - Date & Time of Evaluation Date of Evaluation: 09/22/17 Time of Evaluation: 01:26 - Subjective Subjective: Nurse calls and tells that his heart rate was 190/min. Has 10 beats of VTACH. Had 7 beats of VTACH couple of days ago. Asymptomatic. 98.7*F,96% pulse ox on RA. No complaints. Medical record was reviewed. Last K was 3.3 mEq. This 67 year old male was admitted with left arm numbness and weakness and facial discomfort, left sided facial droop,left CVA. Has PMH of HTN, atrial fibrillation, seizure, CAD, COPD,CVA, CABG. Objective - Vital Signs/Intake and Output Vital Signs (last 24 hours): Temp Pulse Resp BP Pulse Ox 98.7 F 96 H 18 170/97 H 96 09/21/17 18:00 09/21/17 18:14 09/21/17 18:00 09/21/17 18:14 09/21/17 18:00 Intake and Output: 09/21/17 09/22/17 18:59 06:59 Intake Total 480 Output Total 200 Balance 280 - Medications Medications: Current Medications Acetaminophen (Tylenol 325mg Tab) 650 mg PO Q4 PRN PRN Reason: Fever >100.4 F Apixaban (Eliquis) 5 mg PO BID [facility] PRN Reason: Protocol Last Admin: 09/21/17 18:12 Dose: 5 mg Aspirin (Aspirin Chewable) 81 mg PO DAILY [facility] Last Admin: 09/21/17 10:27 Dose: 81 mg Atorvastatin Calcium (Lipitor) 40 mg PO DIN [facility] Last Admin: 09/21/17 23:08 Dose: 40 mg Diltiazem HCl (Cardizem Cd) 120 mg PO DAILY [facility] Last Admin: 09/21/17 10:27 Dose: 120 mg Doxycycline Hyclate (Doryx) 100 mg PO Q12 [facility] PRN Reason: Protocol Stop: 09/30/17 22:01 Last Admin: 09/21/17 23:08 Dose: 100 mg Cefepime HCl (Maxipime 1gm) 1 gm in 100 mls @ 100 mls/hr IVPB Q8 [facility] PRN Reason: Protocol Stop: 09/30/17 22:01 Last Admin: 09/21/17 23:07 Dose: 100 mls/hr Levetiracetam (Keppra) 500 mg PO BID [facility] Last Admin: 09/21/17 18:13 Dose: 500 mg Lisinopril (Zestril) 20 mg PO DAILY [facility] Last Admin: 09/21/17 10:29 Dose: 20 mg Metoprolol Tartrate (Lopressor) 25 mg PO BID [facility] Last Admin: 09/21/17 18:14 Dose: 25 mg - Labs Labs: 09/21/17 01:20 09/20/17 06:45 PT 15.2 SECONDS (9.4-12.5) H 09/19/17 19:50 INR 1.33 (0.93-1.08) H 09/19/17 19:50 APTT 31.9 Seconds (25.1-36.5) 09/19/17 19:50 Micro Results 09/21/17 01:20 Blood-Venous Blood Culture - Preliminary NO GROWTH AFTER 24 HOURS Most Recent Lab Values WBC 9.6 10^3/ul (4.5-11.0) D 09/21/17 01:20 RBC 4.54 10^6/uL (3.5-6.1) 09/21/17 01:20 Hgb 14.3 g/dL (14.0-18.0) 09/21/17 01:20 Hct 41.7 % (42.0-52.0) L 09/21/17 01:20 MCV 91.9 fl (80.0-105.0) 09/21/17 01:20 MCH 31.5 pg (25.0-35.0) 09/21/17 01:20 MCHC 34.3 g/dl (31.0-37.0) 09/21/17 01:20 RDW 12.8 % (11.5-14.5) 09/21/17 01:20 Plt Count 169 10^3/uL (120.0-450.0) 09/21/17 01:20 Gran % 80.2 % (50.0-68.0) H 09/20/17 06:45 MPV 10.1 fl (7.0-11.0) 09/21/17 01:20 Lymph % (Auto) 12.2 % (22.0-35.0) L 09/20/17 06:45 Wise % (Auto) 6.9 % (1.0-6.0) H 09/20/17 06:45 Eos % (Auto) 0.5 % (1.5-5.0) L 09/20/17 06:45 Baso % (Auto) 0.2 % (0.0-3.0) 09/20/17 06:45 Gran # 5.32 (1.4-6.5) 09/20/17 06:45 Lymph # 0.8 (1.2-3.4) L 09/20/17 06:45 Wise # 0.5 (0.1-0.6) 09/20/17 06:45 Eos # 0.0 (0.0-0.7) 09/20/17 06:45 Baso # 0.01 K/mm3 (0.0-2.0) 09/20/17 06:45 PT 15.2 SECONDS (9.4-12.5) H 09/19/17 19:50 INR 1.33 (0.93-1.08) H 09/19/17 19:50 APTT 31.9 Seconds (25.1-36.5) 09/19/17 19:50 Sodium 139 mmol/L (132-148) 09/20/17 06:45 Potassium 3.3 mmol/L (3.6-5.0) L 09/20/17 06:45 Chloride 102 mmol/L (98-107) 09/20/17 06:45 Carbon Dioxide 24 mmol/L (21-33) 09/20/17 06:45 Anion Gap 16 (10-20) 09/20/17 06:45 BUN 12 mg/dL (7-21) 09/20/17 06:45 Creatinine 0.7 mg/dl (0.8-1.5) L 09/20/17 06:45 Est GFR ( Amer) > 60 09/20/17 06:45 Est GFR (Non-Af Amer) > 60 09/20/17 06:45 Random Glucose 140 mg/dL (70-110) H 09/20/17 06:45 POC Glucose (mg/dL) 119 mg/dL (65-110) H 09/21/17 16:17 Hemoglobin A1c 5.9 % (4.2-6.5) 09/19/17 19:50 Calcium 9.2 mg/dL (8.4-10.5) 09/20/17 06:45 Total Bilirubin 1.1 mg/dL (0.2-1.3) 09/19/17 19:50 AST 27 U/L (17-59) 09/19/17 19:50 ALT 33 U/L (7-56) 09/19/17 19:50 Alkaline Phosphatase 95 U/L (38-126) 09/19/17 19:50 Troponin I < 0.01 ng/mL 09/19/17 19:50 Total Protein 7.8 g/dL (5.8-8.3) 09/19/17 19:50 Albumin 4.3 g/dL (3.0-4.8) 09/19/17 19:50 Globulin 3.5 gm/dL 09/19/17 19:50 Albumin/Globulin Ratio 1.2 (1.1-1.8) 09/19/17 19:50 Triglycerides 114 mg/dL (35-160) 09/19/17 19:50 Cholesterol 194 mg/dL (130-200) 09/19/17 19:50 LDL Cholesterol Direct 138 mg/dL (0-129) H 09/19/17 19:50 HDL Cholesterol 41 mg/dL (29-60) 09/19/17 19:50 TSH 3rd Generation 3.27 mIU/mL (0.46-4.68) 09/21/17 06:30 Urine Color Yellow (YELLOW) 09/21/17 08:30 Urine Appearance Clear (CLEAR) 09/21/17 08:30 Urine pH 6.0 (4.7-8.0) 09/21/17 08:30 Ur Specific [place] 1.015 (1.005-1.035) 09/21/17 08:30 Urine Protein Negative mg/dL (<30 mg/dL) 09/21/17 08:30 Urine Glucose (UA) Negative mg/dL (NEGATIVE) 09/21/17 08:30 Urine Ketones Trace mg/dL (NEGATIVE) H 09/21/17 08:30 Urine Blood Trace-lysed (NEGATIVE) H 09/21/17 08:30 Urine Nitrate Negative (NEGATIVE) 09/21/17 08:30 Urine Bilirubin Negative (NEGATIVE) 09/21/17 08:30 Urine Urobilinogen 0.2 E.U./dL (<1 E.U./dL) 09/21/17 08:30 Ur Leukocyte Esterase Negative [place]/uL (NEGATIVE) 09/21/17 08:30 Urine RBC 1 - 3 /hpf (0-2) 09/21/17 08:30 Urine WBC 0 - 2 /hpf (0-6) 09/21/17 08:30 Ur Epithelial Cells 0 - 2 /hpf (0-5) 09/21/17 08:30 Urine Bacteria Trace (NEG) 09/21/17 08:30 Influenza Typ A,B (EIA) Negative for flu a/b (NEGATIVE) 09/21/17 16:10 Blood Type O POSITIVE 09/19/17 21:01 Blood Type Confirm O POSITIVE 09/20/17 06:45 Antibody Screen Negative 09/19/17 21:01 BBK History Checked No verified bt 09/19/17 21:01 - Constitutional Appears: Well, No Acute Distress - Head Exam Head Exam: ATRAUMATIC, NORMAL INSPECTION, NORMOCEPHALIC - Eye Exam Eye Exam: Normal appearance - ENT Exam ENT Exam: Normal External Ear Exam - Neck Exam Neck Exam: Normal Inspection - Respiratory Exam Respiratory Exam: NORMAL BREATHING PATTERN - Cardiovascular Exam Cardiovascular Exam: absent: JVD - GI/Abdominal Exam GI & Abdominal Exam: absent: Distended - Rectal Exam Rectal Exam: Deferred - Exam Additional comments: Deferred. - Extremities Exam Extremities Exam: Normal Inspection - Back Exam Back Exam: NORMAL INSPECTION - Neurological Exam Neurological Exam: Alert, Awake, Oriented x3 - Psychiatric Exam Psychiatric exam: Normal Affect, Normal Mood - Skin Skin Exam: Normal Color Assessment and Plan - Assessment and Plan (Free Text) Assessment: Nonsustained ventricular tachycardia. R/O electrolyte imbalance. R/O cardiac event. CAD. Atrial fibrillation. COPD. Seizure. Plan: BMP. Magnesium. Phosphorous. Troponin level. Continue present management as per PMD. Correct any electrolyte deficit.
[2017-09-22 02:45] LABS: BLOOD UREA NITROGEN 14 mg/dL (7-21); CALCIUM 9.1 mg/dL (8.4-10.5); GFR AFRICAN-AMERICAN > 60; GFR NON-AFRICAN AMERICAN > 60; MAGNESIUM 1.6 mg/dL (1.7-2.2)
[2017-09-22 03:12] LABS: TROPONIN I < 0.01 ng/mL
[2017-09-22] MEDS: Cefepime 1gm in NS 100ml 1 GM/100 ML BAG IVPB SCH (04:59)
--- NOTE | 2017-09-22 06:53 | CON ---
DATE: 09/21/2017 LOCATION: Patient is seen in room 377, bed 1. CHIEF COMPLAINT: Low-grade fevers x1 day duration. HISTORY OF PRESENT ILLNESS: This is a 67-year-old male with a history of coronary artery disease, hypertension, seizures, atrial fibrillation, high cholesterol, who was admitted with diagnosis of cerebrovascular accident and atrial fibrillation. Infectious Disease consultation requested. Patient had low-grade fevers and mild shortness of breath. No cough. No chest pain. No diarrhea or constipation. No dysuria or frequency. PAST MEDICAL HISTORY: Significant for coronary artery disease, hypertension, seizures, atrial fibrillation, high cholesterol. PAST SURGICAL HISTORY: Significant for coronary bypass graft. ALLERGIES: PATIENT HAS NO KNOWN ALLERGIES. MEDICATIONS AT HOME: Include metoprolol, enalapril, amlodipine. PHYSICAL EXAMINATION: GENERAL: Patient is in bed, in no acute distress, appears to be comfortable, responding slowly. VITAL SIGNS: Temperature of 100.5, heart rate of 97, blood pressure 120/80, respiratory rate of 20, saturating 96% on room air. HEENT: Unremarkable. NECK: Supple. LUNGS: Have decreased breath sounds. HEART: Normal S1, S2. ABDOMEN: Soft. Nontender. LABORATORY EXAMINATION: Reveals the patient's white count of 9.6, hemoglobin of 14. Chemistries are noted with a BUN of 12, creatinine of 0.7. LFTs are normal. Alk phos is normal and urinalysis reveals essentially unremarkable and influenza serology is negative. Chest x-ray is reported to be negative. ASSESSMENT AND PLAN: This is a 67-year-old male with coronary artery disease, hypertension, seizures, atrial fibrillation, high cholesterol, admitted with a cerebrovascular accident, now with systemic inflammatory response syndrome with a heart rate of 97, temperature of 100.5, must rule out the aspiration pneumonia. We will treat the patient with Maxipime and doxycycline and order blood cultures, urine cultures, sputum cultures, procalcitonin. We will also order Dopplers of lower extremities to rule out deep venous thrombosis, although patient was just started on Eliquis yesterday. We will follow with you. Cale Garzon MD
[2017-09-22] MEDS: levETIRAcetam 500 mg/5ml UD cups PO SCH ×2 (11:00→18:01)
--- NOTE | 2017-09-22 11:35 | CP.PCM.PN ---
Subjective - Date & Time of Evaluation Date of Evaluation: 09/22/17 Time of Evaluation: 11:27 - Subjective Subjective: Mr. Morin was seen and examined at the bedside. He is awake, oriented t place and person, but not time. He is not cooperative to assessment this morning. He did answer some questions. He denies any headache, seizure-like activity, dizziness, lightheadedness, nausea, or vomiting. He is able to tolerate PO intake. He follow some commands such as field accommodation and refused all other commands. His left side remains weaker than the right side.MRI of the brain (09/21/2017) showed large area of chronic encephalomalacia in the right hemisphere. No evidence of acute infarct. MRA of the head without contrast showed no evidence of proximal occlusion.MRA of the neck showed no evidence of carotid stenosis or occlusion. 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 Objective - Vital Signs/Intake and Output Vital Signs (last 24 hours): Temp Pulse Resp BP Pulse Ox 99.2 F 138 H 19 167/98 H 95 09/22/17 05:47 09/22/17 05:47 09/22/17 05:47 09/22/17 05:47 09/22/17 05:47 Intake and Output: 09/22/17 09/22/17 06:59 18:59 Intake Total 550 Output Total 200 Balance 350 - Medications Medications: Current Medications Acetaminophen (Tylenol 325mg Tab) 650 mg PO Q4 PRN PRN Reason: Fever >100.4 F Apixaban (Eliquis) 5 mg PO BID [facility] PRN Reason: Protocol Last Admin: 09/21/17 18:12 Dose: 5 mg Aspirin (Aspirin Chewable) 81 mg PO DAILY [facility] Last Admin: 09/21/17 10:27 Dose: 81 mg Atorvastatin Calcium (Lipitor) 40 mg PO DIN [facility] Last Admin: 09/21/17 23:08 Dose: 40 mg Diltiazem HCl (Cardizem Cd) 120 mg PO DAILY [facility] Last Admin: 09/21/17 10:27 Dose: 120 mg Doxycycline Hyclate (Doryx) 100 mg PO Q12 [facility] PRN Reason: Protocol Stop: 09/30/17 22:01 Last Admin: 09/22/17 10:45 Dose: 100 mg Cefepime HCl (Maxipime 1gm) 1 gm in 100 mls @ 100 mls/hr IVPB Q8 [facility] PRN Reason: Protocol Stop: 09/30/17 22:01 Last Admin: 09/22/17 04:59 Dose: 100 mls/hr Levetiracetam (Keppra) 500 mg PO BID [facility] Last Admin: 09/21/17 18:13 Dose: 500 mg Lisinopril (Zestril) 20 mg PO DAILY [facility] Last Admin: 09/21/17 10:29 Dose: 20 mg Metoprolol Tartrate (Lopressor) 25 mg PO BID [facility] Last Admin: 09/21/17 18:14 Dose: 25 mg - Labs Labs: 09/21/17 01:20 09/22/17 01:40 PT 15.2 SECONDS (9.4-12.5) H 09/19/17 19:50 INR 1.33 (0.93-1.08) H 09/19/17 19:50 APTT 31.9 Seconds (25.1-36.5) 09/19/17 19:50 - Constitutional Appears: No Acute Distress - Head Exam Head Exam: NORMAL INSPECTION - Neurological Exam Neurological Exam: Alert, Awake Neuro motor strength exam: Left Upper Extremity: 3, Right Upper Extremity: 5, Left Lower Extremity: 2/1, Right Lower Extremity: 2/1 Additional comments: He is not cooperative today, he is able to move extremities spontaneously with left side weaker than the right. Assessment and Plan (1) Seizure Assessment & Plan: Case discussed with Dr. Lozoya, continue all current medical, physical, and occupational therapies. EEG results pending Status: Acute
[2017-09-22] MEDS: diltiaZEM 120 mg/24 Hours CD Cap PO SCH (12:04)
[2017-09-22] MEDS ORDERED: Potassium Chloride 20 mEq ER Tab PO ONE (12:49)
--- NOTE | 2017-09-22 16:01 | PN ---
DATE: 09/22/2017 CONSULTING PHYSICIAN: Dr. Allen. REASON FOR CONSULTATION AND FOLLOWUP: Cardiac evaluation, admitted with possible CHF, coronary artery disease, history of coronary artery bypass surgery, history of atrial fibrillation, history of possible CVA. SUBJECTIVE: The patient denies any chest pain, shortness of breath or any palpitation. Speech is mildly slurred. OBJECTIVE: GENERAL: Not in apparent distress. Speech is slurred. VITAL SIGNS: As follows: Temperature afebrile, heart rate 100, blood pressure /98. HEENT: PERRLA intact. NECK: Supple. No carotid bruit or thyromegaly. CHEST: Clear to auscultation. HEART: S1, S2 regular. ABDOMEN: Soft. EXTREMITIES: Clubbing and cyanosis negative. LABORATORY DATA: Blood workup: WBC 9.6, hemoglobin , hematocrit 41.7, platelet count 167. Sodium 140, potassium 3.6, chloride 102, carbon dioxide , anion gap of 14, BUN 14, creatinine 0.7. Troponin 0.01. IMPRESSION: Atrial fibrillation on admission, now the rate is rapid; acute cerebrovascular accident, probably thromboembolic; ; coronary artery disease, [facility] last stress test 02/07/2012, essentially normal fixed defect; hypertension; hyperlipidemia. RECOMMENDATIONS: We will get echo to assess LV function, continue Cardizem, continue Eliquis, continue metoprolol 25. If heart rate is not controlled, we will increase extra dose of Cardizem and we will increase metoprolol to 50 b.i.d. We will follow with you. Thank you, Dr. Sauceda for providing us the opportunity in taking care of No Morin. From tomorrow, we will decrease the dose of lisinopril and increase Cardizem to 180. Marisol Allen MD
--- NOTE | 2017-09-22 16:08 | US ---
HISTORY: Leg pain and swelling. Evaluate for DVT PHYSICIAN(S): Raul Nguyen MD. TECHNIQUE: Duplex sonography and color-flow Doppler with graded compression were used to evaluate the deep venous systems of both lower extremities. The exam is limited by edema FINDINGS: The visualized deep venous systems of both lower extremities are sonographically normal and compressible. Normal wave forms and augmentation are seen. There is no sonographic evidence for deep venous thrombosis in the visualized segments of both lower extremities. IMPRESSION: No sonographic evidence for deep venous thrombosis in the visualized segments of both lower extremities.
--- NOTE | 2017-09-22 17:06 | CP.PCM.PN ---
Subjective - Date & Time of Evaluation Date of Evaluation: 09/22/17 Time of Evaluation: 11:50 - Subjective Subjective: Still having fevers, still with cough and occasional shortness of breath. Objective - Vital Signs/Intake and Output Vital Signs (last 24 hours): Temp Pulse Resp BP Pulse Ox 100.7 F H 150 H 17 129/54 L 94 L 09/22/17 12:00 09/22/17 12:07 09/22/17 12:00 09/22/17 12:07 09/22/17 12:00 Intake and Output: 09/22/17 09/22/17 06:59 18:59 Intake Total 550 Output Total 200 Balance 350 - Medications Medications: Current Medications Acetaminophen (Tylenol 325mg Tab) 650 mg PO Q4 PRN PRN Reason: Fever >100.4 F Apixaban (Eliquis) 5 mg PO BID [facility] PRN Reason: Protocol Last Admin: 09/22/17 11:00 Dose: 5 mg Aspirin (Aspirin Chewable) 81 mg PO DAILY [facility] Last Admin: 09/22/17 11:00 Dose: 81 mg Atorvastatin Calcium (Lipitor) 40 mg PO DIN [facility] Last Admin: 09/21/17 23:08 Dose: 40 mg Diltiazem HCl (Cardizem Cd) 180 mg PO DAILY [facility] Doxycycline Hyclate (Doryx) 100 mg PO Q12 [facility] PRN Reason: Protocol Stop: 09/30/17 22:01 Last Admin: 09/22/17 10:45 Dose: 100 mg Cefepime HCl (Maxipime 1gm) 1 gm in 100 mls @ 100 mls/hr IVPB Q8 [facility] PRN Reason: Protocol Stop: 09/30/17 22:01 Last Admin: 09/22/17 04:59 Dose: 100 mls/hr Levetiracetam (Keppra) 500 mg PO BID [facility] Last Admin: 09/22/17 11:00 Dose: 500 mg Lisinopril (Zestril) 10 mg PO DAILY [facility] Metoprolol Tartrate (Lopressor) 50 mg PO BID [facility] - Labs Labs: 09/21/17 01:20 09/22/17 01:40 PT 15.2 SECONDS (9.4-12.5) H 09/19/17 19:50 INR 1.33 (0.93-1.08) H 09/19/17 19:50 APTT 31.9 Seconds (25.1-36.5) 09/19/17 19:50 - Constitutional Appears: Chronically Ill - Head Exam Head Exam: NORMAL INSPECTION - ENT Exam ENT Exam: Mucous Membranes Moist - Neck Exam Neck Exam: absent: Meningismus - Respiratory Exam Respiratory Exam: Decreased Breath Sounds - Cardiovascular Exam Cardiovascular Exam: +S1, +S2 - GI/Abdominal Exam GI & Abdominal Exam: Soft. absent: Tenderness Assessment and Plan - Assessment and Plan (Free Text) Plan: Assessment SIRS, consider sepsis from aspiration pneumonia CAD S/P CABG HTN seizure disorder atrial fibrillation dyslipidemia Plan Will change Cefepime to Zosyn, continue Doxycycline and start Vancomycin and repeat septic work up
--- NOTE | 2017-09-22 17:52 | CARD ---
APPROVED REPORT EXAM: Two-dimensional and M-mode echocardiogram with Doppler and color Doppler. INDICATION ACUTE CVA/LVFX/BUBBLE STUDY 2D DIMENSIONS Left Atrium (2D)5.5 (1.6-4.0cm)IVSd1.1 (0.7-1.1cm) LVDd5.4 (3.9-5.9cm)PWd1.2 (0.7-1.1cm) M-Mode DIMENSIONS Aortic Root5.40 (2.2-3.7cm)Aortic Cusp Exc.2.50 (1.5-2.0cm) Aortic Valve AoV Peak Ceeumcax343.0cm/Evette Peak GR.5mmHgAI P 1/2 [id number] Mitral Valve E/A ratio0.0 TDI E/Lateral E'0.0E/Medial E'0.0 Pulmonary Valve PV Peak Ohygiivv329.0cm/sPV Peak Grad.4mmHg Tricuspid Valve TR Peak [id number] [id number] Peak Gr.39mmHg [id number] LEFT VENTRICLE The left ventricle is normal size. There is borderline to mild concentric left ventricular hypertrophy. Proximal septal thickening is noted. The left ventricular function is normal. EF-55-% There is normal LV segmental wall motion. A fib . colud not be assessed No left ventricle thrombus noted on this study. There is no ventricular septal defect visualized. There is no left ventricular aneurysm. There is no mass noted in the left ventricle. RIGHT VENTRICLE The right ventricle is normal size. There is normal right ventricular wall thickness. The right ventricular systolic function is normal. ATRIA The left atrium is mildly dilated. The right atrium is mildly dilated. The interatrial septum is intact with no evidence for an atrial septal defect, by Bubble study. AORTIC VALVE The aortic valve is thickened but opens well. There is moderate aortic regurgitation. There is no aortic valvular stenosis. MITRAL VALVE The mitral valve is thickened but opens well. Mitral regurgitation is mild. There is no mitral valve stenosis. There is no evidence of mitral valve prolapse. TRICUSPID VALVE The tricuspid valve leaflets are thickened , but open well. There is mild tricuspid regurgitation.RVSP-49 mmof Hg. There is mild pulmonary hypertension. There is no tricuspid valve stenosis. There is no tricuspid valve prolapse or vegetation. PULMONIC VALVE The pulmonary valve is normal in structure. There is no pulmonic valvular regurgitation. There is no pulmonic valvular stenosis. GREAT VESSELS The aortic root is mildly to moderately enlarged. The ascending aorta is Moderately dilated. The pulmonary artery is normal. The IVC is normal in size and collapses >50% with inspiration. PERICARDIAL EFFUSION There is no pleural effusion. There is no pericardial effusion. <Conclusion> The left ventricle is normal size. There is borderline to mild concentric left ventricular hypertrophy. Proximal septal thickening is noted. The left ventricular function is normal. EF-55-% There is moderate aortic regurgitation. Mitral regurgitation is mild. There is mild tricuspid regurgitation.RVSP-49 mmof Hg. There is mild pulmonary hypertension. The interatrial septum is intact with no evidence for an atrial septal defect, by Bubble study. The aortic root is mildly to moderately enlarged. The ascending aorta is Moderately dilated. There is no pericardial effusion.
[2017-09-22] MEDS: Piperacillin/Tazobact 3.375 gm 100 ML IVPB SCH (18:02)
[2017-09-23] MEDS: Piperacillin/Tazobact 3.375 gm 100 ML IVPB SCH ×4 (00:04→18:08)
--- NOTE | 2017-09-23 00:06 | CP.PCM.PN ---
Subjective - Date & Time of Evaluation Date of Evaluation: 09/22/17 Time of Evaluation: 18:00 - Subjective Subjective: DATE: 09/22/2017 SUBJECTIVE: He is comfortable in bed, in no acute distress. He developed tachycardia, developed 101 fever today. No cough. No expectoration. No burning in the urine. Chest x-ray was done yesterday, did not show any infiltrate, just minimal congestion. MRI of the head showed encephalomalacia in the cerebral hemisphere. MRA of the head and neck did not show any occlusion. He has left upper arm numbness and weakness. He was started on regular diet, able to swallow without any difficulty. low grade fever REVIEW OF SYSTEMS: As per HPI, rest of 12-point review of systems reviewed and negative. PHYSICAL EXAMINATION: VITAL SIGNS: Temperature, T-max 101, blood pressure 123/89, heart rate is 83 per minute, respiratory rate 18 per minute, and oxygen saturation 96% on room air. HEENT: Normal. NECK: Supple. No lymphadenopathy. CHEST: Air entry present and equal bilateral. No added sounds. CARDIOVASCULAR: S1 and S2 irregularly irregular. No murmur. No gallop. ABDOMEN: Soft, nontender. No hepatosplenomegaly. EXTREMITIES: No edema, left-sided weakness present. LABORATORY DATA: White count 9.6, hemoglobin 14.3, hematocrit 41.7, platelets 169. Glucose 150. UA negative. MEDICATIONS: Tylenol 650 q.6 hours p.r.n., Eliquis 5 mg p.o. b.i.d., aspirin 81 mg daily, Lipitor 40 mg daily, diltiazem 120 mg daily, Keppra 500 mg p.o. b.i.d., lisinopril 20 mg daily, metoprolol 25 mg p.o. b.i.d. ASSESSMENT: 1. Left-sided stroke. 2. Atrial fibrillation, rapid heart rate. 3. New onset fever. 4. Chronic obstructive pulmonary disease. 5. Coronary artery disease. 6. New onset seizure. PLAN: MRI/MRA reviewed, showed left cerebral encephalomalacia, no arterial obstruction on MRA. We will continue anticoagulation with Eliquis 5 mg p.o. b.i.d. New onset fever, chest x-ray negative, ID consultation with Dr. Garzon appreciated , started on zosyn and doxycycline p.o. Urine culture, UA, blood culture to be sent. New onset seizure, he is currently on Keppra oral b.i.d., no new episodes. subacute rehab placement once stable. Naila Sauceda MD Objective - Vital Signs/Intake and Output Vital Signs (last 24 hours): Temp Pulse Resp BP Pulse Ox 98.8 F 107 H 20 133/72 96 09/22/17 19:28 09/22/17 22:00 09/22/17 19:28 09/22/17 19:28 09/22/17 19:28 Intake and Output: 09/22/17 09/23/17 18:59 06:59 Intake Total 350 360 Output Total 600 200 Balance -250 160 - Medications Medications: Current Medications Acetaminophen (Tylenol 325mg Tab) 650 mg PO Q4 PRN PRN Reason: Fever >100.4 F Last Admin: 09/22/17 21:07 Dose: 650 mg Apixaban (Eliquis) 5 mg PO BID [facility] PRN Reason: Protocol Last Admin: 09/22/17 18:01 Dose: 5 mg Aspirin (Aspirin Chewable) 81 mg PO DAILY [facility] Last Admin: 09/22/17 11:00 Dose: 81 mg Atorvastatin Calcium (Lipitor) 40 mg PO DIN [facility] Last Admin: 09/22/17 18:08 Dose: 40 mg Diltiazem HCl (Cardizem Cd) 180 mg PO DAILY [facility] Doxycycline Hyclate (Doryx) 100 mg PO Q12 [facility] PRN Reason: Protocol Stop: 09/30/17 22:01 Last Admin: 09/22/17 21:06 Dose: 100 mg Piperacillin Sod/Tazobactam Sod (Zosyn 3.375 In Ns 100ml) 100 mls @ 200 mls/hr IVPB Q6 [facility] PRN Reason: Protocol Stop: 09/29/17 18:01 Last Admin: 09/22/17 18:02 Dose: 200 mls/hr Levetiracetam (Keppra) 500 mg PO BID [facility] Last Admin: 09/22/17 18:01 Dose: 500 mg Lisinopril (Zestril) 10 mg PO DAILY [facility] Metoprolol Tartrate (Lopressor) 50 mg PO BID [facility] Last Admin: 09/22/17 18:01 Dose: 50 mg - Labs Labs: 09/21/17 01:20 09/22/17 01:40 PT 15.2 SECONDS (9.4-12.5) H 09/19/17 19:50 INR 1.33 (0.93-1.08) H 09/19/17 19:50 APTT 31.9 Seconds (25.1-36.5) 09/19/17 19:50
[2017-09-23] MEDS ORDERED: Albuterol-Ipratrop 3 mg / 0.5 (3 ml) UD IH STA (00:09)
--- NOTE | 2017-09-23 07:42 | CP.PCM.PN ---
Subjective - Date & Time of Evaluation Date of Evaluation: 09/23/17 Time of Evaluation: 07:38 - Subjective Subjective: Mr. Morin was seen and examined at the bedside. He is alert, awake and able to answer few questions and follow commands such as field accommodation, strength test. He refused to move his lower extremities, but moves it spontaneously without any commands. He had febrile episode last night, antipyretic and cooling blanket applied with T max 104, at present 100.4. He remains with left side weakness, but sensation remains intact. Objective - Vital Signs/Intake and Output Vital Signs (last 24 hours): Temp Pulse Resp BP Pulse Ox 100.9 F H 106 H 21 152/80 H 95 09/23/17 06:00 09/23/17 06:00 09/23/17 06:00 09/23/17 06:00 09/23/17 06:00 Intake and Output: 09/23/17 09/23/17 06:59 18:59 Intake Total 510 Output Total 200 Balance 310 - Medications Medications: Current Medications Acetaminophen (Tylenol 325mg Tab) 650 mg PO Q4 PRN PRN Reason: Fever >100.4 F Last Admin: 09/23/17 05:46 Dose: 650 mg Apixaban (Eliquis) 5 mg PO BID [facility] PRN Reason: Protocol Last Admin: 09/22/17 18:01 Dose: 5 mg Aspirin (Aspirin Chewable) 81 mg PO DAILY [facility] Last Admin: 09/22/17 11:00 Dose: 81 mg Atorvastatin Calcium (Lipitor) 40 mg PO DIN [facility] Last Admin: 09/22/17 18:08 Dose: 40 mg Diltiazem HCl (Cardizem Cd) 180 mg PO DAILY [facility] Doxycycline Hyclate (Doryx) 100 mg PO Q12 [facility] PRN Reason: Protocol Stop: 09/30/17 22:01 Last Admin: 09/22/17 21:06 Dose: 100 mg Piperacillin Sod/Tazobactam Sod (Zosyn 3.375 In Ns 100ml) 100 mls @ 200 mls/hr IVPB Q6 [facility] PRN Reason: Protocol Stop: 09/29/17 18:01 Last Admin: 09/23/17 05:42 Dose: 200 mls/hr Levetiracetam (Keppra) 500 mg PO BID [facility] Last Admin: 09/22/17 18:01 Dose: 500 mg Lisinopril (Zestril) 10 mg PO DAILY [facility] Metoprolol Tartrate (Lopressor) 50 mg PO BID [facility] Last Admin: 09/22/17 18:01 Dose: 50 mg - Labs Labs: 09/21/17 01:20 09/22/17 01:40 PT 15.2 SECONDS (9.4-12.5) H 09/19/17 19:50 INR 1.33 (0.93-1.08) H 09/19/17 19:50 APTT 31.9 Seconds (25.1-36.5) 09/19/17 19:50 - Constitutional Appears: No Acute Distress - Head Exam Head Exam: NORMAL INSPECTION - Neurological Exam Neurological Exam: Alert, Awake Neuro motor strength exam: Left Upper Extremity: 3, Right Upper Extremity: 5, Left Lower Extremity: 3, Right Lower Extremity: 3 Additional comments: He is febrile, but able to follow some commands. Sensation remains intact. Assessment and Plan (1) Seizure Assessment & Plan: Case discussed with Dr. Lozoya, continue all current medical, physical therapies. Treat any underlying infection and any metabolic derangement. There is no new recommendations from neurology. Status: Acute
[2017-09-23] MEDS ORDERED: Magnesium Sulfate 2 GM in Sodium Chloride 0.9% 100 ML IVPB ONE (09:10)
[2017-09-23 10:12] LABS: BLOOD UREA NITROGEN 16 mg/dL (7-21); CALCIUM 9.4 mg/dL (8.4-10.5); GFR AFRICAN-AMERICAN > 60; GFR NON-AFRICAN AMERICAN > 60; MAGNESIUM 1.8 mg/dL (1.7-2.2)
[2017-09-23] MEDS: diltiaZEM 180 mg/24 Hours CD Cap PO SCH (10:15)
[2017-09-23] MEDS: levETIRAcetam 500 mg/5ml UD cups PO SCH ×2 (10:20→19:11)
[2017-09-23] MEDS: Vancomycin 1gm in NS 250ml 1 GM/250 ML BAG IVPB SCH ×2 (11:48→22:25)
--- NOTE | 2017-09-23 13:07 | RAD ---
HISTORY: rule out pneumonia COMPARISON: 09/21/2017 FINDINGS: LUNGS: No active pulmonary disease. PLEURA: No significant pleural effusion identified, no pneumothorax apparent. CARDIOVASCULAR: Moderate cardiomegaly OSSEOUS STRUCTURES: Sternal wires VISUALIZED UPPER ABDOMEN: Normal. OTHER FINDINGS: None. IMPRESSION: No active disease.
--- NOTE | 2017-09-23 14:13 | PN ---
DATE: REASON FOR CONSULTATION AND FOLLOWUP: Cardiac evaluation, admitted with CVA; history of atrial fibrillation; coronary artery disease, status post coronary artery bypass surgery; ascending aortic aneurysm. SUBJECTIVE: The patient denies any chest pain, shortness of breath. He has a fever of 103, on cooling blanket; 5 beats of VT. OBJECTIVE: GENERAL Not in any distress. Feels okay. VITAL SIGNS: T-max 100.3, now with a temperature of 100.9 on cooling blanket. Heart rate 106, blood pressure 152/80. HEENT: PERRLA, intact. NECK: Supple. No carotid bruit. No thyromegaly. CHEST: Clear to auscultation. HEART: S1 and S2 regular. ABDOMEN: Soft. EXTREMITIES: Clubbing and cyanosis negative. LABORATORY DATA: Blood workup as follows. WBC , hemoglobin 14.3, hematocrit 41.7, platelet count 169,000. Chemistry shows sodium 140, potassium 3.6, chloride 102, carbon dioxide 27, anion gap of 14, BUN 14, creatinine 0.7. Magnesium 1.6 yesterday. IMPRESSION: Hypomagnesemia, fever, sepsis, atrial fibrillation, cerebrovascular accident. Echocardiography done on 09/21/2017 showed ascending aorta dilated, moderate aortic regurgitation, mild mitral regurgitation and mild tricuspid regurgitation, right ventricular systolic pressure of 49. Mild pulmonary hypertension. Bubble study was negative for atrial septal defect. Aortic root is mild to moderately dilated, ascending aorta is moderately dilated, ejection fraction 55%. Fever, sepsis, history of coronary artery bypass 5 years ago. Last stress test on 02/07/2012 was essentially normal. RECOMMENDATIONS: Continue Eliquis 5 mg twice. Continue Cardizem, increase to 180 mg. Continue metoprolol 50 b.i.d. Continue lisinopril. Supplement magnesium. We will repeat magnesium and phosphate today. Once the patient is stabilized, consider CT chest to for ascending aortic aneurysm and followup. We will discuss with you. Hayley Allen MD
--- NOTE | 2017-09-23 14:23 | CP.PCM.PN ---
Subjective - Date & Time of Evaluation Date of Evaluation: 09/23/17 Time of Evaluation: 11:55 - Subjective Subjective: Patient has been having fevers overnight. Objective - Vital Signs/Intake and Output Vital Signs (last 24 hours): Temp Pulse Resp BP Pulse Ox 101.7 F H 105 H 21 170/102 H 95 09/23/17 10:15 09/23/17 10:19 09/23/17 06:00 09/23/17 10:19 09/23/17 06:00 Intake and Output: 09/23/17 09/23/17 06:59 18:59 Intake Total 510 Output Total 200 Balance 310 - Medications Medications: Current Medications Acetaminophen (Tylenol 325mg Tab) 650 mg PO Q4 PRN PRN Reason: Fever >100.4 F Last Admin: 09/23/17 10:15 Dose: 650 mg Apixaban (Eliquis) 5 mg PO BID [facility] PRN Reason: Protocol Last Admin: 09/23/17 10:18 Dose: 5 mg Aspirin (Aspirin Chewable) 81 mg PO DAILY [facility] Last Admin: 09/23/17 10:15 Dose: 81 mg Atorvastatin Calcium (Lipitor) 40 mg PO DIN [facility] Last Admin: 09/22/17 18:08 Dose: 40 mg Diltiazem HCl (Cardizem Cd) 180 mg PO DAILY [facility] Last Admin: 09/23/17 10:15 Dose: 180 mg Doxycycline Hyclate (Doryx) 100 mg PO Q12 [facility] PRN Reason: Protocol Stop: 09/30/17 22:01 Last Admin: 09/23/17 10:18 Dose: 100 mg Piperacillin Sod/Tazobactam Sod (Zosyn 3.375 In Ns 100ml) 100 mls @ 200 mls/hr IVPB Q6 [facility] PRN Reason: Protocol Stop: 09/29/17 18:01 Last Admin: 09/23/17 05:42 Dose: 200 mls/hr Vancomycin HCl (Vancomycin 1gm) 1 gm in 250 mls @ 167 mls/hr IVPB Q12H [facility] PRN Reason: Protocol Levetiracetam (Keppra) 500 mg PO BID [facility] Last Admin: 09/23/17 10:20 Dose: 500 mg Lisinopril (Zestril) 10 mg PO DAILY [facility] Last Admin: 09/23/17 10:16 Dose: 10 mg Metoprolol Tartrate (Lopressor) 50 mg PO BID [facility] Last Admin: 09/23/17 10:19 Dose: 50 mg Oseltamivir Phosphate (Tamiflu Cap) 75 mg PO BID [facility] PRN Reason: Protocol Stop: 09/28/17 11:16 - Labs Labs: 09/21/17 01:20 09/23/17 09:30 PT 15.2 SECONDS (9.4-12.5) H 09/19/17 19:50 INR 1.33 (0.93-1.08) H 09/19/17 19:50 APTT 31.9 Seconds (25.1-36.5) 09/19/17 19:50 - Constitutional Appears: Chronically Ill - Head Exam Head Exam: NORMAL INSPECTION - Neck Exam Neck Exam: absent: Meningismus - Respiratory Exam Respiratory Exam: Decreased Breath Sounds - Cardiovascular Exam Cardiovascular Exam: +S1, +S2 - GI/Abdominal Exam GI & Abdominal Exam: Soft. absent: Tenderness Assessment and Plan - Assessment and Plan (Free Text) Plan: Assessment SIRS, consider sepsis from aspiration pneumonia CAD S/P CABG HTN seizure disorder atrial fibrillation dyslipidemia Plan Will continue Zosyn, Doxycycline day 2 and start Vancomycin and will follow up repeat septic work up; will start Tamiflu as well willl monitor fever curve
[2017-09-23 18:20] LABS: URINE BILIRUBIN NEGATIVE (NEGATIVE); URINE BLOOD NEGATIVE (NEGATIVE); URINE GLUCOSE (UA) NEGATIVE (NEGATIVE); URINE LEUKOCYTE ESTERASE NEGATIVE Leu/uL (NEGATIVE); URINE NITRATE NEGATIVE (NEGATIVE); URINE PROTEIN 30 mg/dL (<30 mg/dL); URINE UROBILINOGEN 0.2 E.U./dL (<1 E.U./dL)
[2017-09-23 18:24] LABS: URINE APPEARANCE SL CLOUDY (CLEAR); URINE COLOR YELLOW (YELLOW)
[2017-09-23 18:26] LABS: URINE BACTERIA TRACE (NEG); URINE EPITHELIAL CELLS 0 - 2 /hpf (0-5); URINE RBC 0 - 2 /hpf (0-2); URINE WBC 0 - 2 /hpf (0-6)
[2017-09-24] MEDS: Piperacillin/Tazobact 3.375 gm 100 ML IVPB SCH ×4 (00:13→17:38)
[2017-09-24 08:31] LABS: BASO # 0.01 K/mm3 (0.0-2.0); BASO % 0.2 % (0.0-3.0); EOS # 0.2 (0.0-0.7); EOS % 5.7 % (1.5-5.0); GRAN # 1.94 (1.4-6.5); GRAN % 48.4 % (50.0-68.0); HEMOGLOBIN 14.3 g/dL (14.0-18.0); LYMPH # 1.3 (1.2-3.4); LYMPH % 31.7 % (22.0-35.0); MEAN CELL VOLUME 93.3 fl (80.0-105.0); MEAN CORPUSCULAR HGB CONC 33.3 g/dl (31.0-37.0); MEAN PLATELET VOLUME 10.3 fl (7.0-11.0); MONO # 0.6 (0.1-0.6); RBC 4.61 10^6/uL (3.5-6.1); RED CELL DISTRIBUTION WIDTH 13.2 % (11.5-14.5)
[2017-09-24 08:55] LABS: ALB/GLOB RATIO 0.9 (1.1-1.8); ALT/SGPT 38 U/L (7-56); AST/SGOT 37 U/L (17-59); BLOOD UREA NITROGEN 23 mg/dL (7-21); CALCIUM 8.7 mg/dL (8.4-10.5); GFR AFRICAN-AMERICAN > 60; GFR NON-AFRICAN AMERICAN > 60
[2017-09-24] MEDS: Vancomycin 1gm in NS 250ml 1 GM/250 ML BAG IVPB SCH (10:50)
[2017-09-24] MEDS: levETIRAcetam 500 mg/5ml UD cups PO SCH ×2 (10:52→17:40)
[2017-09-24] MEDS: diltiaZEM 180 mg/24 Hours CD Cap PO SCH (10:52)
--- NOTE | 2017-09-24 13:58 | PN ---
DATE: 09/24/2017 REASON FOR CONSULTATION: Cardiac evaluation, admitted with CVA, history of atrial fibrillation, coronary artery disease, status post coronary artery bypass surgery, ascending aortic aneurysm, and flu. SUBJECTIVE: The patient denies any chest pain, shortness of breath, or any palpitation. OBJECTIVE: GENERAL: Not in apparent distress. Wanted to go home. VITAL SIGNS: Temperature afebrile, heart rate 92, blood pressure 109/63. HEENT: PERRLA. Extraocular muscles intact. NECK: Supple. No carotid bruits or thyromegaly. CHEST: Clear to auscultation. HEART: S1 and S2, regular ABDOMEN: Soft. EXTREMITIES: Clubbing and cyanosis negative. LABORATORY DATA: Blood workup as follows: WBC 4, hemoglobin 14.3, hematocrit 43.0, platelet count 147. Chemistry shows sodium 140, potassium 3.9, chloride 105, carbon dioxide 24, anion gap of 15, BUN 23, creatinine 0.8. Rapid influenza test positive. IMPRESSION: Acute flu, cerebrovascular accident, atrial fibrillation. Echocardiography done day before yesterday that showed ascending aorta dilated, root of the aorta is mild to moderately enlarged, ascending aorta is moderately dilated. Bubble study is negative for patent foramen ovale, ascending aortic root 5.4 cm. History of cerebrovascular accident, history of atrial fibrillation. RECOMMENDATION: Continue Eliquis. Continue Cardizem, increase to 180. Continue metoprolol. Continue lisinopril. Rate is well controlled. Once the patient is cleared from flu, patient can be discharged home, but needs CAT scan followup to measure the size and monitor ascending root aortic aneurysm. We will discuss with Dr. Sauceda. Thank you Dr. Sauceda for providing us the opportunity in taking care of No Morin. Marisol Allen MD
--- NOTE | 2017-09-24 19:50 | PN ---
DATE: 09/24/2017 SUBJECTIVE: He is comfortable in bed, in no acute distress. He spiked fever 101 last night. He has flu positive. Currently on IV antibiotics as per ID. Heart rate is controlled with current medications. Cardiology, Neurology consult and following. REVIEW OF SYSTEMS: As per HPI, rest of 12-point review of systems reviewed and negative. PHYSICAL EXAMINATION: GENERAL: Comfortable in bed, in no acute distress. VITAL SIGNS: Temperature T-max 101, blood pressure 130/70, heart rate is 90 per minute, respiratory rate 15 per minute. HEENT: Negative. CHEST: Air entry present and equal bilateral. No added sounds. CARDIOVASCULAR: Within normal limits. S1 and S2 irregularly irregular. ABDOMEN: Soft and nontender. No hepatosplenomegaly. EXTREMITIES: No edema. Left-sided weakness present. GARBAGE PICK UP MAN: Alert and oriented x3. No focal, sensory motor deficits. MEDICATIONS: Tylenol 650 q.4 hours p.r.n., Eliquis 5 mg p.o. b.i.d., aspirin 81 mg daily, Lipitor 40 mg daily, diltiazem 180 mg daily, Keppra 500 mg p.o. b.i.d., lisinopril 10 mg daily, metoprolol 50 mg p.o. b.i.d., Tamiflu 75 mg p.o. b.i.d. LABORATORY DATA: White count 4, hemoglobin 14.3, hematocrit 43 and platelets 147. Sodium 140, potassium 3.9, creatinine 0.8 and bilirubin 1.1. ASSESSMENT: 1. Left-sided stroke. 2. Atrial fibrillation. 3. influenza A positive. 4. Coronary artery disease. 5. New onset seizure. PLAN: Heart rate is controlled with current medications. He is on anticoagulation with Eliquis 5 mg p.o. b.i.d. for atrial fibrillation. We will continue anticoagulation. Currently on IV antibiotics. Chest x-ray negative. Fever workup negative. Fever likely due to flu. Leukopenia, likely related to fever. Subacute rehab once he is afebrile. Naila Sauceda MD [facility] # [id number] MTDKisha
--- NOTE | 2017-09-24 23:44 | PN ---
DATE: 09/24/2017 SUBJECTIVE: Patient is in bed, in no acute distress, nontoxic on exam. PHYSICAL EXAMINATION VITAL SIGNS: Temperature is 98, blood pressure is 120/80, respiratory rate 20, heart rate of 93. HEENT: Unremarkable. NECK: Supple. LUNGS: Decreased breath sounds. HEART: Normal S1, S2. ABDOMEN: Soft, nontender. LABORATORY DATA: Reveals a white count of 4, hemoglobin 14, platelets of 147. Coagulation is noted. The chemistry reveals BUN of 23, creatinine of 0.8. Urinalysis is noted. Influenza is positive. Microbiology reveals blood cultures have no growth. Urine culture have no growth. Patient's procalcitonin is 0.3 and 0.34 - two negative procalcitonins. MEDICATIONS: Review of the orders reveals the patient is on p.o. doxycycline and Tamiflu. Reviewed the x-ray from yesterday. Chest x-ray from yesterday reveals the patient has no active pulmonary disease. ASSESSMENT AND PLAN: This is a 67-year-old male who was seen earlier today in 377 with sepsis secondary to influenza, coronary artery disease by history. We will discontinue his doxycycline, vancomycin, and Zosyn. Today is day #2 of Tamiflu, will complete 5 days. We will discontinue oral antibiotics. Cale Garzon MD
--- NOTE | 2017-09-25 08:18 | CP.PCM.PN ---
Subjective - Date & Time of Evaluation Date of Evaluation: 09/25/17 Time of Evaluation: 08:15 - Subjective Subjective: Mr. Morin was seen and examined at the bedside. He is alert, oriented to person, place but not time (Tuesday). He is able to participate in a pleasant conversation and able to follow commands. He remains with left facial droop and left sided weakness. He denies any headache, dizziness, seizure-like activity. He remains woth bilateral lower extremities SCD's. He is on droplet precaution for influenza. There was no untoward events overnight. Objective - Vital Signs/Intake and Output Vital Signs (last 24 hours): Temp Pulse Resp BP Pulse Ox 97.8 F 76 20 130/83 93 L 09/25/17 06:00 09/25/17 06:00 09/25/17 06:00 09/25/17 06:00 09/25/17 06:00 Intake and Output: 09/25/17 09/25/17 06:59 18:59 Intake Total 120 Output Total 200 Balance -80 - Medications Medications: Current Medications Acetaminophen (Tylenol 325mg Tab) 650 mg PO Q4 PRN PRN Reason: Fever >100.4 F Last Admin: 09/24/17 00:35 Dose: 650 mg Apixaban (Eliquis) 5 mg PO BID [facility] PRN Reason: Protocol Last Admin: 09/24/17 17:37 Dose: 5 mg Aspirin (Aspirin Chewable) 81 mg PO DAILY [facility] Last Admin: 09/24/17 10:52 Dose: 81 mg Atorvastatin Calcium (Lipitor) 40 mg PO DIN [facility] Last Admin: 09/24/17 17:37 Dose: 40 mg Diltiazem HCl (Cardizem Cd) 180 mg PO DAILY [facility] Last Admin: 09/24/17 10:52 Dose: 180 mg Levetiracetam (Keppra) 500 mg PO BID [facility] Last Admin: 09/24/17 17:40 Dose: 500 mg Lisinopril (Zestril) 10 mg PO DAILY [facility] Last Admin: 09/24/17 10:53 Dose: 10 mg Metoprolol Tartrate (Lopressor) 50 mg PO BID [facility] Last Admin: 09/24/17 17:37 Dose: 50 mg Oseltamivir Phosphate (Tamiflu Cap) 75 mg PO BID [facility] PRN Reason: Protocol Stop: 09/28/17 11:16 Last Admin: 09/24/17 17:40 Dose: 75 mg - Labs Labs: 09/24/17 07:30 09/24/17 07:30 PT 15.2 SECONDS (9.4-12.5) H 09/19/17 19:50 INR 1.33 (0.93-1.08) H 09/19/17 19:50 APTT 31.9 Seconds (25.1-36.5) 09/19/17 19:50 - Constitutional Appears: No Acute Distress - Head Exam Head Exam: NORMAL INSPECTION - Neurological Exam Neurological Exam: Alert, Awake Neuro motor strength exam: Left Upper Extremity: 3, Right Upper Extremity: 5, Left Lower Extremity: 4, Right Lower Extremity: 5 Additional comments: Neurological unchanged from previous examination. Assessment and Plan (1) Seizure Assessment & Plan: Case discussed with Dr. Lozoya, continue all current medica, physical, and occupational therapies. There is no new recommendations from neurology. Status: Acute
[2017-09-25] MEDS: levETIRAcetam 500 mg/5ml UD cups PO SCH ×2 (10:31→17:56)
[2017-09-25] MEDS: diltiaZEM 180 mg/24 Hours CD Cap PO SCH (10:31)
[2017-09-25] MEDS ORDERED: Sodium Chloride 0.9% 1,000 ML IV SCH (12:30)
--- NOTE | 2017-09-25 16:20 | CP.PCM.PN ---
Subjective - Date & Time of Evaluation Date of Evaluation: 09/25/17 Time of Evaluation: 10:00 - Subjective Subjective: DATE: 09/25/2017 SUBJECTIVE: He is comfortable in bed, in no acute distress. He has flu positive. Currently on IV antibiotics as per ID. Heart rate is controlled with current medications. Cardiology, Neurology consult and following. Afebrile in past 24 hours. REVIEW OF SYSTEMS: As per HPI, rest of 12-point review of systems reviewed and negative. PHYSICAL EXAMINATION: GENERAL: Comfortable in bed, in no acute distress. VITAL SIGNS: reviewed. HEENT: Negative. CHEST: Air entry present and equal bilateral. No added sounds. CARDIOVASCULAR: Within normal limits. S1 and S2 irregularly irregular. ABDOMEN: Soft and nontender. No hepatosplenomegaly. EXTREMITIES: No edema. Left-sided weakness present. HOME AIDE: Alert and oriented x3. No focal, sensory motor deficits. MEDICATIONS: Tylenol 650 q.4 hours p.r.n., Eliquis 5 mg p.o. b.i.d., aspirin 81 mg daily, Lipitor 40 mg daily, diltiazem 180 mg daily, Keppra 500 mg p.o. b.i.d., lisinopril 10 mg daily, metoprolol 50 mg p.o. b.i.d., Tamiflu 75 mg p.o. b.i.d. LABORATORY DATA: White count 4, hemoglobin 14.3, hematocrit 43 and platelets 147. Sodium 140, potassium 3.9, creatinine 0.8 and bilirubin 1.1. ASSESSMENT: 1. Left-sided stroke. 2. Atrial fibrillation. 3. influenza A positive. 4. Coronary artery disease. 5. New onset seizure. PLAN: Heart rate is controlled with current medications. He is on anticoagulation with Eliquis 5 mg p.o. b.i.d. for atrial fibrillation. We will continue anticoagulation. Currently on IV antibiotics. Chest x-ray negative. Flu- on maureen flu. CT chest am for evaluation of ascending aortic aneurysm. Discharge planning, [facility]/home. Patient saying he has home health aide 14/03 . But he does not know where she is now. foreign exchange services manager consult for evaluation of home status. Naila Sauceda MD Objective - Vital Signs/Intake and Output Vital Signs (last 24 hours): Temp Pulse Resp BP Pulse Ox 98.2 F 92 H 20 149/96 H 93 L 09/25/17 12:00 09/25/17 12:00 09/25/17 12:00 09/25/17 12:00 09/25/17 06:00 Intake and Output: 09/25/17 09/25/17 06:59 18:59 Intake Total 120 Output Total 200 Balance -80 - Medications Medications: Current Medications Acetaminophen (Tylenol 325mg Tab) 650 mg PO Q4 PRN PRN Reason: Fever >100.4 F Last Admin: 09/24/17 00:35 Dose: 650 mg Apixaban (Eliquis) 5 mg PO BID [facility] PRN Reason: Protocol Last Admin: 09/25/17 10:38 Dose: 5 mg Aspirin (Aspirin Chewable) 81 mg PO DAILY [facility] Last Admin: 09/25/17 10:30 Dose: 81 mg Atorvastatin Calcium (Lipitor) 40 mg PO DIN [facility] Last Admin: 09/24/17 17:37 Dose: 40 mg Diltiazem HCl (Cardizem Cd) 180 mg PO DAILY [facility] Last Admin: 09/25/17 10:31 Dose: 180 mg Sodium Chloride (Sodium Chloride 0.9%) 1,000 mls @ 50 mls/hr IV .Q20H [facility] Stop: 09/25/17 23:59 Last Admin: 09/25/17 15:59 Dose: 50 mls/hr Levetiracetam (Keppra) 500 mg PO BID [facility] Last Admin: 09/25/17 10:31 Dose: 500 mg Lisinopril (Zestril) 10 mg PO DAILY [facility] Last Admin: 09/25/17 10:31 Dose: 10 mg Metoprolol Tartrate (Lopressor) 50 mg PO BID [facility] Last Admin: 09/25/17 10:30 Dose: 50 mg Oseltamivir Phosphate (Tamiflu Cap) 75 mg PO BID [facility] PRN Reason: Protocol Stop: 09/28/17 11:16 Last Admin: 09/25/17 10:30 Dose: 75 mg - Labs Labs: 09/24/17 07:30 09/24/17 07:30 PT 15.2 SECONDS (9.4-12.5) H 09/19/17 19:50 INR 1.33 (0.93-1.08) H 09/19/17 19:50 APTT 31.9 Seconds (25.1-36.5) 09/19/17 19:50
--- NOTE | 2017-09-25 17:07 | PN ---
DATE: 09/25/2017 REASON FOR THE CONSULTATION AND FOLLOWUP: Cardiac evaluation, admitted with CVA, history of atrial fibrillation, coronary artery disease, status post coronary artery bypass, ascending aortic aneurysm, now the patient has a flu. SUBJECTIVE: The patient denies any chest pain, wanted to go home. PHYSICAL EXAMINATION: GENERAL: Not in any apparent distress. VITAL SIGNS: Temperature afebrile, heart rate 61, blood pressure 134/83. HEENT: PERRLA. Extraocular muscles intact. NECK: Supple. No carotid bruit. No thyromegaly. CHEST: Clear to auscultation. HEART: S1 and S2 regular. ABDOMEN: Soft. EXTREMITIES: Clubbing and cyanosis negative. LABORATORY DATA: Blood workup as follows. WBC 4, hemoglobin 14.3, hematocrit 43.0, platelet count 147. Chemistry shows sodium 140, potassium 3.9, chloride 105, carbon dioxide 24, anion gap of 15, BUN 23, creatinine 0.8, total protein 6.2, albumin 3.0, albumin globulin ratio is 0.9. IMPRESSION: Ascending aortic aneurysm, dilated ascending aortic root by echocardiogram, acute influenza, cerebrovascular accident, atrial fibrillation, echocardiogram yesterday showed ascending aortic aneurysm, mild to moderately enlarged ascending aorta, dilated. Bubble study shows negative for any patent foramen ovale. Ascending aorta 5.4 cm. History of cerebrovascular accident, history of atrial fibrillation, recommending continue Eliquis, continue Cardizem 180 mg, continue metoprolol, continue lisinopril. Rate is well-controlled. The patient cleared from influenza, can be discharged, but needs CAT scan and followup measurement of size of ascending aorta and monitoring. I discussed with Dr. Sauceda. We will order CAT scan today. The patient's CAT scan ordered. We will get the renal function tomorrow post contrast chest to rule out any contrast-induced nephropathy. We will start low-dose IV fluids 150 mL an hour. We will follow with you. Thank you, Dr. Sauceda for providing us the opportunity in taking care of the patient, No Morin. Marisol Allen MD
--- NOTE | 2017-09-25 23:29 | PN ---
DATE: 09/25/2017 SUBJECTIVE: Patient is in bed, in no acute distress, nontoxic. PHYSICAL EXAMINATION: VITAL SIGNS: Temperature is 98, blood pressure 140/90, respiratory rate is 20, heart rate is 92. HEENT: Unremarkable. NECK: Supple. LUNGS: Decreased breath sounds. HEART: Normal S1, S2. ABDOMEN: Soft, nontender. LABORATORY DATA: Reveals white count of 4000, hemoglobin of 14, platelets of 147. Chemistry reveals BUN of 23, creatinine of 0.8. Procalcitonin 0.34 and 0.30. Urinalysis is noted. Serology, influenza is positive. Microbiology reveals the blood cultures are negative. Urine cultures are negative. MEDICATIONS: Review of the orders revealed the patient is on Tamiflu. ASSESSMENT AND PLAN: This is a 67-year-old male who was seen earlier this morning, with sepsis secondary to influenza, history of coronary artery disease, currently on day number 3 of Tamiflu, will complete five days of Tamiflu. Cale Garzon MD
[2017-09-26 06:49] LABS: BASO # 0.02 K/mm3 (0.0-2.0); BASO % 0.5 % (0.0-3.0); EOS # 0.2 (0.0-0.7); EOS % 4.4 % (1.5-5.0); GRAN # 2.04 (1.4-6.5); GRAN % 47.2 % (50.0-68.0); HEMOGLOBIN 13.7 g/dL (14.0-18.0); LYMPH # 1.6 (1.2-3.4); LYMPH % 36.6 % (22.0-35.0); MEAN CELL VOLUME 93.2 fl (80.0-105.0); MEAN CORPUSCULAR HEMOGLOBIN 31.2 pg (25.0-35.0); MEAN CORPUSCULAR HGB CONC 33.5 g/dl (31.0-37.0); MEAN PLATELET VOLUME 10.5 fl (7.0-11.0); MONO # 0.5 (0.1-0.6); MONO % 11.3 % (1.0-6.0); RBC 4.39 10^6/uL (3.5-6.1); RED CELL DISTRIBUTION WIDTH 12.8 % (11.5-14.5); WHITE BLOOD COUNT 4.3 10^3/ul (4.5-11.0)
[2017-09-26 07:30] LABS: ALBUMIN 2.9 g/dL (3.0-4.8); ALT/SGPT 41 U/L (7-56); AST/SGOT 61 U/L (17-59); BLOOD UREA NITROGEN 16 mg/dL (7-21); GFR AFRICAN-AMERICAN > 60; GFR NON-AFRICAN AMERICAN > 60; MAGNESIUM 1.7 mg/dL (1.7-2.2)
[2017-09-26] MEDS ORDERED: Iohexol 350 MG/100 ML VIAL ONE (07:40)
[2017-09-26] MEDS: diltiaZEM 180 mg/24 Hours CD Cap PO SCH (10:44)
[2017-09-26] MEDS: levETIRAcetam 500 mg/5ml UD cups PO SCH ×2 (10:44→19:09)
--- NOTE | 2017-09-26 11:46 | CT ---
PROCEDURE: CT Chest with contrast HISTORY: Ascending aotic aneurysm and dilated Root COMPARISON: None. TECHNIQUE: Contiguous axial images were obtained through the chest with intravenous contrast enhancement. Sagittal and coronal reconstructions were performed. IV contrast: Radiation dose (DLP): mGy-cm. This CT exam was performed using one or more of the following dose reduction techniques: Automated exposure control, adjustment of the mA and/or kV according to patient size, and/or use of iterative reconstruction technique. FINDINGS: LUNGS: Clear lungs. Visualized airway clear. MEDIASTINUM: Tortuous aorta with a 3.8 cm descending aortic aneurysm. Enlarged heart. S/P CABG. Main pulmonary artery unremarkable. No vascular congestion. No lymphadenopathy. PLEURA: No pleural fluid. No pneumothorax. BONES: No fracture. No destructive lesion. UPPER ABDOMEN: Grossly unremarkable. OTHER FINDINGS: None. IMPRESSION: Tortuous aorta with a 3.8 cm descending aortic aneurysm. Enlarged heart. S/P CABG
--- NOTE | 2017-09-26 13:00 | CP.PCM.PN ---
Subjective - Date & Time of Evaluation Date of Evaluation: 09/26/17 Time of Evaluation: 12:57 - Subjective Subjective: Mr. Morin was seen and examined at the bedside. He is alert, oriented in all spheres. He remains with left facial palsy and left sided weakness. He is able to answer questions and follow instructions. He denies any headache, lightheadedness, nausea, vomiting, blurred vision, or diplopia. He remains in isolation due to influenza. He had an episode of slow heart rate, combination welder apprentice made aware. Objective - Vital Signs/Intake and Output Vital Signs (last 24 hours): Temp Pulse Resp BP Pulse Ox 99.5 F 70 18 127/80 98 09/26/17 12:00 09/26/17 12:00 09/26/17 12:00 09/26/17 12:00 09/26/17 05:46 Intake and Output: 09/26/17 09/26/17 06:59 18:59 Intake Total 370 Balance 370 - Medications Medications: Current Medications Acetaminophen (Tylenol 325mg Tab) 650 mg PO Q4 PRN PRN Reason: Fever >100.4 F Last Admin: 09/24/17 00:35 Dose: 650 mg Apixaban (Eliquis) 5 mg PO BID [facility] PRN Reason: Protocol Last Admin: 09/26/17 10:45 Dose: 5 mg Aspirin (Aspirin Chewable) 81 mg PO DAILY [facility] Last Admin: 09/26/17 10:44 Dose: 81 mg Atorvastatin Calcium (Lipitor) 40 mg PO DIN [facility] Last Admin: 09/25/17 17:15 Dose: 40 mg Diltiazem HCl (Cardizem Cd) 180 mg PO DAILY [facility] Last Admin: 09/26/17 10:44 Dose: 180 mg Levetiracetam (Keppra) 500 mg PO BID [facility] Last Admin: 09/26/17 10:44 Dose: 500 mg Lisinopril (Zestril) 10 mg PO DAILY [facility] Last Admin: 09/26/17 10:44 Dose: 10 mg Metoprolol Tartrate (Lopressor) 50 mg PO BID [facility] Last Admin: 09/26/17 10:45 Dose: 50 mg Oseltamivir Phosphate (Tamiflu Cap) 75 mg PO BID [facility] PRN Reason: Protocol Stop: 09/28/17 11:16 Last Admin: 09/26/17 10:45 Dose: 75 mg - Labs Labs: 09/26/17 06:00 09/26/17 06:00 PT 15.2 SECONDS (9.4-12.5) H 09/19/17 19:50 INR 1.33 (0.93-1.08) H 09/19/17 19:50 APTT 31.9 Seconds (25.1-36.5) 09/19/17 19:50 - Constitutional Appears: No Acute Distress - Head Exam Head Exam: NORMAL INSPECTION - Neurological Exam Neurological Exam: Alert, Awake, Oriented x3 Neuro motor strength exam: Left Upper Extremity: 4, Right Upper Extremity: 5, Left Lower Extremity: 4, Right Lower Extremity: 5 Additional comments: Neurological unchnaged from previous examination. Assessment and Plan (1) Seizure Assessment & Plan: Case discussed with Dr. Garcia, continue all current medical, physical, and occupational therapies. There is no new recommendations from neurology. Status: Acute
[2017-09-26] MEDS ORDERED: Sodium Chloride 0.9% 1,000 ML IV SCH (14:30)
[2017-09-26] MEDS ORDERED: Oxycodone/Acetaminophen 10/325 mg Tab PO PRN (22:14)
--- NOTE | 2017-09-26 22:22 | CP.PCM.PN ---
Subjective - Date & Time of Evaluation Date of Evaluation: 09/26/17 Time of Evaluation: 18:00 - Subjective Subjective: DATE: 09/26/2017 SUBJECTIVE: He is comfortable in bed, in no acute distress. Influenza A positive. . Currently on IV antibiotics as per ID. Heart rate is controlled with current medications. Afebrile in past 24 hours. asking to be discharged home. C/O back pain. REVIEW OF SYSTEMS: As per HPI, rest of 12-point review of systems reviewed and negative. PHYSICAL EXAMINATION: GENERAL: Comfortable in bed, in no acute distress. VITAL SIGNS: reviewed. HEENT: Negative. CHEST: Air entry present and equal bilateral. No added sounds. CARDIOVASCULAR: Within normal limits. S1 and S2 irregularly irregular. ABDOMEN: Soft and nontender. No hepatosplenomegaly. EXTREMITIES: No edema. Left-sided weakness present. READING TEACHER: Alert and oriented x3. No focal, sensory motor deficits. MEDICATIONS: Tylenol 650 q.4 hours p.r.n., Eliquis 5 mg p.o. b.i.d., aspirin 81 mg daily, Lipitor 40 mg daily, diltiazem 180 mg daily, Keppra 500 mg p.o. b.i.d., lisinopril 10 mg daily, metoprolol 50 mg p.o. b.i.d., Tamiflu 75 mg p.o. b.i.d. LABORATORY DATA: reviewed. ASSESSMENT: 1. Left-sided stroke. 2. Atrial fibrillation. 3. influenza A 4. Coronary artery disease. 5. New onset seizure. 6. Leukopenia, anemia 7. AA PLAN: CT chest showed tortuous aorta with 3.8 cm descending aorta aneurysm. Heart rate is controlled with current medications. He is on anticoagulation with Eliquis 5 mg p.o. b.i.d. for atrial fibrillation. We will continue anticoagulation. Currently on IV antibiotics. Chest x-ray negative. Flu- on maureen flu. Afebrile for past 2 days. percocet prn for back pain. MANDY placement awaited. Naila Sauceda MD Objective - Vital Signs/Intake and Output Vital Signs (last 24 hours): Temp Pulse Resp BP Pulse Ox 98 F 70 18 138/90 95 09/26/17 18:00 09/26/17 18:00 09/26/17 18:00 09/26/17 18:00 09/26/17 18:00 Intake and Output: 09/26/17 09/27/17 18:59 06:59 Intake Total 0 Output Total 400 Balance -400 - Medications Medications: Current Medications Acetaminophen (Tylenol 325mg Tab) 650 mg PO Q4 PRN PRN Reason: Pain, moderate (4-7) Last Admin: 09/26/17 17:50 Dose: 650 mg Apixaban (Eliquis) 5 mg PO BID [facility] PRN Reason: Protocol Last Admin: 09/26/17 19:09 Dose: 5 mg Aspirin (Aspirin Chewable) 81 mg PO DAILY [facility] Last Admin: 09/26/17 10:44 Dose: 81 mg Atorvastatin Calcium (Lipitor) 40 mg PO DIN [facility] Last Admin: 09/26/17 19:09 Dose: 40 mg Diltiazem HCl (Cardizem Cd) 180 mg PO DAILY [facility] Last Admin: 09/26/17 10:44 Dose: 180 mg Sodium Chloride (Sodium Chloride 0.9%) 1,000 mls @ 50 mls/hr IV .Q20H [facility] Stop: 09/26/17 23:59 Last Admin: 09/26/17 15:38 Dose: 50 mls/hr Levetiracetam (Keppra) 500 mg PO BID [facility] Last Admin: 09/26/17 19:09 Dose: 500 mg Lisinopril (Zestril) 10 mg PO DAILY [facility] Last Admin: 09/26/17 10:44 Dose: 10 mg Metoprolol Tartrate (Lopressor) 50 mg PO BID [facility] Last Admin: 09/26/17 18:49 Dose: Not Given Oseltamivir Phosphate (Tamiflu Cap) 75 mg PO BID [facility] PRN Reason: Protocol Stop: 09/28/17 11:16 Last Admin: 09/26/17 19:09 Dose: 75 mg Oxycodone/Acetaminophen (Percocet 10/325 Mg Tab) 1 tab PO Q4H PRN PRN Reason: Pain, moderate (4-7) - Labs Labs: 09/26/17 06:00 09/26/17 06:00 PT 15.2 SECONDS (9.4-12.5) H 09/19/17 19:50 INR 1.33 (0.93-1.08) H 09/19/17 19:50 APTT 31.9 Seconds (25.1-36.5) 09/19/17 19:50
[2017-09-27 07:16] LABS: BASO # 0.02 K/mm3 (0.0-2.0); BASO % 0.4 % (0.0-3.0); EOS # 0.3 (0.0-0.7); EOS % 4.5 % (1.5-5.0); GRAN # 2.84 (1.4-6.5); GRAN % 50.8 % (50.0-68.0); HEMOGLOBIN 14.1 g/dL (14.0-18.0); LYMPH # 1.9 (1.2-3.4); LYMPH % 33.7 % (22.0-35.0); MEAN CELL VOLUME 91.7 fl (80.0-105.0); MEAN CORPUSCULAR HEMOGLOBIN 30.7 pg (25.0-35.0); MEAN CORPUSCULAR HGB CONC 33.4 g/dl (31.0-37.0); MEAN PLATELET VOLUME 10.2 fl (7.0-11.0); MONO # 0.6 (0.1-0.6); MONO % 10.6 % (1.0-6.0); RBC 4.6 10^6/uL (3.5-6.1); RED CELL DISTRIBUTION WIDTH 12.6 % (11.5-14.5); WHITE BLOOD COUNT 5.6 10^3/ul (4.5-11.0)
[2017-09-27 07:42] LABS: BLOOD UREA NITROGEN 12 mg/dL (7-21); GFR AFRICAN-AMERICAN > 60; GFR NON-AFRICAN AMERICAN > 60; MAGNESIUM 1.8 mg/dL (1.7-2.2)
--- NOTE | 2017-09-27 08:29 | PN ---
DATE: 09/26/2017 REASON FOR CONSULTATION AND FOLLOWUP: Cardiac evaluation, admitted with CVA, history of atrial fibrillation, coronary artery disease, status post , ascending aortic aneurysm, now patient has flu. SUBJECTIVE: Denies any chest pain, shortness of breath or any palpitation. OBJECTIVE: GENERAL: Not in apparent distress. VITAL SIGNS: As follows: Temperature afebrile, heart rate 70, blood pressure 127/80. HEENT: PERRLA intact. NECK: Supple. No carotid bruit or thyromegaly. CHEST: Clear to auscultation. HEART: S1, S2 regular. ABDOMEN: Soft. EXTREMITIES: Clubbing and cyanosis negative. LABORATORY DATA: Blood workup as follows: WBC , hemoglobin 13.7, hematocrit 40.9, platelet count 137. Chemistry shows sodium 142, potassium , anion gap of 18, BUN 16, creatinine 0.6, total protein , albumin-globulin ratio 1. Patient had a CAT scan of chest this afternoon ordered yesterday to rule out any ascending aortic aneurysm. Echo shows a dilated ascending aorta that shows a tortuous aorta with 3.6 cm descending aortic aneurysm, status post CABG. CT chest shows only descending aortic 3.8 cm, not significant for any interventions at this time. IMPRESSION: Ascending aortic aneurysm, dilated ascending aortic root by echo, acute flu, cerebrovascular accident, coronary artery disease, coronary artery bypass grafting, left ventricular bubble study was negative for patent foramen ovale, atrial fibrillation. RECOMMENDATIONS: Continue Eliquis, continue Cardizem, continue metoprolol, discontinue telemetry. CAT scan did not show any ascending aortic aneurysm, descending aorta 3.8 cm. Medical treatment, we will discontinue telemetry. Since the patient has a , we will repeat the blood workup in the morning. Ejection fraction 55%. We will give gentle hydration post CT scan to prevent contrast-induced nephropathy. We will use 50 mL of normal saline and repeat the blood workup tomorrow. Discharge and .discontinue telemetry. Thank you, Dr. Sauceda to provide us the opportunity in taking care of this patient. Marisol Allen MD [facility] # [id number]
--- NOTE | 2017-09-27 10:43 | PN ---
DATE: 09/27/2017 REASON FOR THE CONSULTATION: Cardiac evaluation, admitted with CVA, history of atrial fibrillation, coronary artery disease, status post ascending artery aneurysm, now the patient has flu last night, AFib with supraventricular rate. SUBJECTIVE: The patient denies any chest pain, shortness of breath. Wanted to go home. OBJECTIVE: GENERAL: Not in any apparent distress. VITAL SIGNS: Temperature afebrile, heart rate 77, blood pressure 159/87. HEENT: PERRLA. Extraocular muscles intact. NECK: Supple. No carotid bruit. No thyromegaly. CHEST: Clear to auscultation. HEART: S1 and S2 regular. ABDOMEN: Soft. EXTREMITIES: Clubbing and cyanosis negative. LABORATORY DATA: Blood workup as follows. WBC 5.6, hemoglobin 14.1, hematocrit 42.2, platelet count 150. Chemistry shows sodium 140, potassium 3.8, chloride 103, carbon dioxide 27, anion gap of 14, BUN 12, creatinine 0.6. The patient's CT chest done. No evidence of dissection or ascending aortic aneurysm noted, but descending abdominal aorta has aneurysm, measurement 3.8 cm, status post CABG. IMPRESSION: Cerebrovascular accident; history of coronary artery disease; history of coronary artery bypass graft; coronary artery bypass surgery; history of atrial fibrillation, chronic; history of cerebrovascular accident. Echocardiogram done was negative. Bubble study was negative for patent foramen ovale. Now, the patient got influenza. RECOMMENDATION: Continue Eliquis. Continue Cardizem. Yesterday, the patient's heart rate was low 43, so we held the beta claudio. Continue Cardizem CD 120 mg. Continue Eliquis. We will increase lisinopril to 20 and cut down to metoprolol 25 b.i.d. We will discontinue telemetry. Thank you Dr. Sauceda for providing us the opportunity in taking care of the patient, No Morin. Marisol Allen MD
[2017-09-27] MEDS: diltiaZEM 180 mg/24 Hours CD Cap PO SCH (12:16)
[2017-09-27] MEDS: levETIRAcetam 500 mg/5ml UD cups PO SCH ×2 (12:16→18:01)
[2017-09-27 12:26] VITALS: TEMP 97.6
--- NOTE | 2017-09-27 12:39 | CP.PCM.PN ---
Subjective - Date & Time of Evaluation Date of Evaluation: 09/26/17 Time of Evaluation: 11:20 - Subjective Subjective: Comfortable, no fevers. Objective - Vital Signs/Intake and Output Vital Signs (last 24 hours): Temp Pulse Resp BP Pulse Ox 99 F 74 20 156/93 H 98 09/26/17 05:46 09/26/17 10:45 09/26/17 05:46 09/26/17 10:45 09/26/17 05:46 Intake and Output: 09/26/17 09/26/17 06:59 18:59 Intake Total 370 Balance 370 - Medications Medications: Current Medications Acetaminophen (Tylenol 325mg Tab) 650 mg PO Q4 PRN PRN Reason: Fever >100.4 F Last Admin: 09/24/17 00:35 Dose: 650 mg Apixaban (Eliquis) 5 mg PO BID [facility] PRN Reason: Protocol Last Admin: 09/26/17 10:45 Dose: 5 mg Aspirin (Aspirin Chewable) 81 mg PO DAILY [facility] Last Admin: 09/26/17 10:44 Dose: 81 mg Atorvastatin Calcium (Lipitor) 40 mg PO DIN [facility] Last Admin: 09/25/17 17:15 Dose: 40 mg Diltiazem HCl (Cardizem Cd) 180 mg PO DAILY [facility] Last Admin: 09/26/17 10:44 Dose: 180 mg Levetiracetam (Keppra) 500 mg PO BID [facility] Last Admin: 09/26/17 10:44 Dose: 500 mg Lisinopril (Zestril) 10 mg PO DAILY [facility] Last Admin: 09/26/17 10:44 Dose: 10 mg Metoprolol Tartrate (Lopressor) 50 mg PO BID [facility] Last Admin: 09/26/17 10:45 Dose: 50 mg Oseltamivir Phosphate (Tamiflu Cap) 75 mg PO BID [facility] PRN Reason: Protocol Stop: 09/28/17 11:16 Last Admin: 09/26/17 10:45 Dose: 75 mg - Labs Labs: 09/26/17 06:00 09/26/17 06:00 PT 15.2 SECONDS (9.4-12.5) H 09/19/17 19:50 INR 1.33 (0.93-1.08) H 09/19/17 19:50 APTT 31.9 Seconds (25.1-36.5) 09/19/17 19:50 - Constitutional Appears: Non-toxic - Head Exam Head Exam: NORMAL INSPECTION - Respiratory Exam Respiratory Exam: Decreased Breath Sounds - Cardiovascular Exam Cardiovascular Exam: +S1, +S2 - GI/Abdominal Exam GI & Abdominal Exam: Soft. absent: Tenderness Assessment and Plan - Assessment and Plan (Free Text) Plan: Assessment sepsis from systemic viral illness with Influenza CAD S/P CABG HTN seizure disorder atrial fibrillation dyslipidemia Plan complete 5 days of Tamiflu (day 4 today)
[2017-09-27 18:07] VITALS: BP 128/75; PULSE 98
[2017-09-27 19:02] VITALS: RESP 19; O2SAT 98
== END 2017-09-27 20:28 | DRG 100 ==
LOC: ED 19:40 → ERH 21:05 → ED 21:09 → ERH 21:34 → 3RSO 23:53 → 3RNO 09-27 12:37
PROVIDERS: ADMIT Internal Medicine Medical Oncology; ATTEND Internal Medicine Medical Oncology
DX: G40.409 Other generalized epilepsy and epileptic syndromes, not intractable, without status epilepticus (principal); A41.89 Other specified sepsis; J10.1 Influenza due to other identified influenza virus with other respiratory manifestations; I47.2 Ventricular tachycardia; G93.89 Other specified disorders of brain; E83.42 Hypomagnesemia; I08.3 Combined rheumatic disorders of mitral, aortic and tricuspid valves; I48.0 Paroxysmal atrial fibrillation; G51.0 Bell's palsy; I27.20 Pulmonary hypertension, unspecified; I71.2 Thoracic aortic aneurysm, without rupture; E78.5 Hyperlipidemia, unspecified; I10 Essential (primary) hypertension; I25.10 Atherosclerotic heart disease of native coronary artery without angina pectoris; J44.9 Chronic obstructive pulmonary disease, unspecified; Z95.1 Presence of aortocoronary bypass graft; Z86.73 Personal history of transient ischemic attack (TIA), and cerebral infarction without residual deficits; D72.819 Decreased white blood cell count, unspecified; D64.9 Anemia, unspecified

== ENCOUNTER 2018-12-22 17:41 | Inpatient (IN) | payer OTHER ==
--- NOTE | 2018-12-22 18:02 | ED PDOC ---
Arrival/HPI - General Chief Complaint: Weakness/Neurological Deficit Historian: EMS - History of Present Illness Narrative History of Present Illness (Text): 12/22/18 17:59 Patient is a 68 yo male, presents via EMS after product planner reportedly witnessed the patient to "stop talking and stare out" approximately 10 minutes prior to arrival. History obtained from EMS via product planner. Patient reportedly has prior history of stroke with left sided deficits. Currently patient is unable to provide history and no family members are present. Past Medical History - Cardiac Hx Cardiac Disorders: Yes Hx Hypertension: Yes - Pulmonary Hx Chronic Obstructive Pulmonary Disease (COPD): No - Neurological HX Cerebrovascular Accident: Yes - Renal Hx Renal Disorder: No - Endocrine/Metabolic Hx Endocrine Disorders: No - Hematological/Oncological Hx Anemia: No Hx Cancer: No - Musculoskeletal/Rheumatological Hx Falls: No - Gastrointestinal Hx Gastrointestinal Disorders: No - Psychiatric Hx Depression: No Hx Emotional Abuse: No Hx Physical Abuse: No Hx Substance Use: No - Surgical History Hx Arteriovenous Shunt: Yes Hx Coronary Artery Bypass Graft: Yes - Anesthesia Hx Anesthesia: Yes Hx Anesthesia Reactions: No Hx Malignant Hyperthermia: No - Suicidal Assessment Feels Threatened In Home Enviroment: No Family/Social History Family/Social History: Unknown Family HX Smoking Status: Never Smoked Hx Alcohol Use: No Hx Substance Use: No Hx Substance Use Treatment: No Allergies/Home Meds Allergies/Adverse Reactions: Allergies No Known Allergies Allergy (Verified 01/27/12 13:30) Home Medications: Home Meds Medication Instructions Recorded Confirmed Amlodipine Besylate 10 mg PO DAILY 01/27/12 09/20/17 Enalapril Maleate 20 mg PO DAILY 01/27/12 09/20/17 Metoprolol Succinate 50 mg PO DAILY 01/27/12 09/20/17 Review of Systems - Review of Systems Systems not reviewed;Unavailable: Acuity of Condition Constitutional: absent: Fevers Neurological: Focal Weakness, Speech Changes Physical Exam Vital Signs Reviewed: Yes Temperature: Afebrile Blood Pressure: Hypertensive Pulse: Tachycardic Respiratory Rate: Normal Appearance: Positive for: Uncomfortable Mental Status: Positive for: Lethargic Finger Stick Blood Glucose: 124 - Systems Exam Head: Present: Atraumatic Pupils: Present: PERRL Extroacular Muscles: Present: EOMI Mouth: Present: Moist Mucous Membranes Pharnyx: No: ERYTHEMA Nose (Internal): Present: Normal Inspection Neck: Present: Normal Range of Motion. No: Meningeal Signs Respiratory/Chest: Present: Clear to Auscultation. No: Respiratory Distress Cardiovascular: Present: Murmurs, Tachycardic Abdomen: No: Tenderness Rectal: No: Gross Blood Back: Present: Normal Inspection Upper Extremity: No: Cyanosis Lower Extremity: Present: Edema. No: CALF TENDERNESS Neurological: Present: Other (on re-evaluation at 1800, patient is speaking, moving right upper and lower extremity purposely, pulling up blanket, moves left lower extremity well, moves left upper extremity with some weakness) Skin: Present: Warm Psychiatric: Present: Alert. No: Normal Insight, Normal Concentration Medical Decision Making ED Course and Treatment: 12/22/18 18:52 Patient is a 68 yo male who presents via EMS with history of sudden onset of "staring out" as reported by a product planner. CODE STROKE called as on initial exam patient is not verbal, no following commands and reportedly this is acute change from 10 minutes prior to arrival. No trauma reported. No shaking reported. 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 CT head reveals old infarct but no acute changes as per radiologist. On re-exam, patient is now speaking, follows some commands, moving all extremities. Mild left sided weakness noted. Given rapid improvement of symptoms, as well as history of patient taking Eliquis as noted from pervious admission, patient at this time not a tpa candidate. Ddx includes CVA, seizure. Patient with serial exams has more purposeful activity and movements and is speaking. Attempt made to call Emergency Contact with no response. Attempt made to contact product planner to verify patient's current medication. On monitor, patient is noted to be in atrial fibrillation. He cannot confirm his medications at this time, but prior admission and meds were reviewed. History, and initial exam and repeat exam reviewed with on-call neurologist Dr. Kisha Lozoya. Patient will be admitted for evaluation of AMS, possible seizure and postictal, possible CVA, atrial fibrillation. Will admit to on-call physician. 12/22/18 18:[address] IMPRESSION: No acute intracranial abnormalities. No significant findings to account for the clinical presentation. No significant interval change compared to the prior examination(s). 12/22/18 20:20 Patient admitted to hospitalist service after oncall physician paged. Son presented to ED at 20:00. He states that his father is "acting like he normally does" and that his speech and movements are at his baseline. Patient on exam is not oriented to place or time, son states that that is his baseline. I have explained abnormal presentation, EKG, rhythm, need for admission for serial exams, cardiac monitoring. Son and patient ARE AGREEABLE TO ADMISSION after discussion at 20:45. - Critical Care Critical Care Minutes: 30 minutes - RAD Interpretation Radiology Orders: 12/22/18 17:46 HEAD W/O (CODE STROKE) [CT] Stat 12/22/18 17:47 CHEST PORTABLE [RAD] Stat Patient Liaison: Radiologist - EKG Interpretation EKG Interpretation (Text): 12/22/18 18:57 EKG at 1805 atrial fibrillation rate of 124 Interpreted by ED Physician: Yes Type: 12 lead EKG - Medication Orders Current Medication Orders: Sodium Chloride (Sodium Chloride 0.9%) 1,000 mls @ 100 mls/hr IV .Q10H JONY NIHSS Scale ([place]) Time Performed: 17:58 - How Severe is the Stoke Baseline Level of Consciousness: 0=Alert LOC to Questions: 2=Neither correct LOC to commands: 2=Neither correct Best Gaze: 0=Normal Visual: 0=No visual loss Facial: 0=Normal Motor Arm - Left: 3=No effort against gravity (falls immediately) Motor Arm - Right: 3=No effort against gravity (falls immediately) Motor Leg - Left: 3=No effort against gravity (falls immediately) Motor Leg - Right: 3=No effort against gravity (falls immediately) Limb Ataxia: 0=Absent Sensory: 0=Normal Best Language: 2=Severe aphasia Dysarthia: 2=Severe, near unintelligible or worse Extinction & Inattention (Neglect): 0=Normal, no object Score: 20 Risk Level: Mod/Sev Stroke Risk NIHSS Scale([place]) 2 Time Performed: 18:45 - How Severe is the Stoke Baseline Level of Consciousness: 0=Alert LOC to Questions: 0=Both comments correct LOC to commands: 0=Obeys both correctly Best Gaze: 0=Normal Visual: 0=No visual loss Facial: 0=Normal Motor Arm - Left: 2=Falls before 10 sec Motor Arm - Right: 0=No drift Motor Leg - Left: 1=Drift before 5 sec Motor Leg - Right: 0=No drift Limb Ataxia: 0=Absent Sensory: 0=Normal Best Language: 1=Mild to moderate aphasia Dysarthia: 1=Mild to moderate slurring Extinction & Inattention (Neglect): 0=Normal, no object Score: 5 Risk Level: Mod Stroke Risk Disposition/Present on Arrival - Present on Arrival Any Indicators Present on Arrival: No History of DVT/PE: No History of Uncontrolled Diabetes: No Urinary Catheter: No History of Decub. Ulcer: No History Surgical Site Infection Following: None - Disposition Have Diagnosis and Disposition been Completed?: Yes Diagnosis: Altered mental status, CVA (cerebral vascular accident), Atrial fibrillation Disposition: HOSPITALIZED Disposition Time: 18:50 Patient Plan: Admission, Telemetry Patient Problems: Current Active Problems Problem Status Onset Altered mental status Acute Atrial fibrillation Acute CVA (cerebral vascular accident) Acute Condition: SERIOUS
--- NOTE | 2018-12-22 18:02 | CT ---
Date of service: 12/22/2018 PROCEDURE: CT HEAD WITHOUT CONTRAST. HISTORY: code stroke COMPARISON: 09/19/2017. TECHNIQUE: Axial computed tomography images were obtained through the head/brain without intravenous contrast. Supplemental Coronal and Sagittal projections created and reviewed. Radiation dose: Total exam DLP = 1687.95 mGy-cm. This CT exam was performed using one or more of the following dose reduction techniques: Automated exposure control, adjustment of the mA and/or kV according to patient size, and/or use of iterative reconstruction technique. FINDINGS: HEMORRHAGE: No intracranial hemorrhage. BRAIN: No mass effect or edema. Stable right MCA CVA. Cortical and cerebellar atrophy, periventricular small vessel disease. VENTRICLES: Unremarkable. No hydrocephalus. CALVARIUM: Unremarkable. PARANASAL SINUSES: Unremarkable as visualized. No significant inflammatory changes. MASTOID AIR CELLS: Unremarkable as visualized. No inflammatory changes. OTHER FINDINGS: None. IMPRESSION: No acute intracranial abnormalities. No significant findings to account for the clinical presentation. No significant interval change compared to the prior examination(s). Code stroke protocol: Study completed 17:50. Radiologist notified 17:54. Results conveyed verbally at 17:58. Interpretation finalized and available for review 18:00.
[2018-12-22 18:28] LABS: BASO # 0.02 K/mm3 (0.0-2.0); BASO % 0.2 % (0.0-3.0); EOS # 0.1 (0.0-0.7); EOS % 1.1 % (1.5-5.0); HEMOGLOBIN 15.3 g/dL (14.0-18.0); LYMPH # 2.7 (1.2-3.4); LYMPH % 28.5 % (22.0-35.0); MEAN CELL VOLUME 96.3 fl (80.0-105.0); MEAN CORPUSCULAR HEMOGLOBIN 31.5 pg (25.0-35.0); MEAN CORPUSCULAR HGB CONC 32.7 g/dl (31.0-37.0); MEAN PLATELET VOLUME 9.7 fl (7.0-11.0); MONO # 0.8 (0.1-0.6); MONO % 8.5 % (1.0-6.0); RBC 4.86 10^6/uL (3.5-6.1); RED CELL DISTRIBUTION WIDTH 13.4 % (11.5-14.5); WHITE BLOOD COUNT 9.5 10^3/uL (4.5-11.0)
[2018-12-22] MEDS: Sodium Chloride 0.9% 1,000 ML IV SCH (18:31)
[2018-12-22 18:35] LABS: INR 1.23; PARTIAL THROMBOPLASTIN TIME 31.3 Seconds (26.9-38.3); PROTHROMBIN TIME 13.6 SECONDS (9.4-12.5)
[2018-12-22 18:37] LABS: ALB/GLOB RATIO 1.1 (1.1-1.8); ALBUMIN 4.2 g/dL (3.0-4.8); ALT/SGPT 11 U/L (7-56); AST/SGOT 23 U/L (17-59); BLOOD UREA NITROGEN 23 mg/dL (7-21); CALCIUM 9.2 mg/dL (8.4-10.5); GFR NON-AFRICAN AMERICAN > 60; HDL CHOLESTEROL 46 mg/dL (29-60)
[2018-12-22 18:47] LABS: LDL CHOLESTEROL 147 mg/dL (0-129)
[2018-12-22 18:50] LABS: TROPONIN I < 0.01 ng/mL
--- NOTE | 2018-12-22 19:01 | RAD ---
Date of service: 12/22/2018 HISTORY: Code Stroke COMPARISON: 09/23/2007. FINDINGS: LUNGS: No active pulmonary disease. PLEURA: No significant pleural effusion identified, no pneumothorax apparent. CARDIOVASCULAR: No atherosclerotic calcification present Cardiomegaly. No radiographic findings to suggest acute or significant cardiovascular disease. Incidental Finding(s): Postoperative changes related to sternotomy. OSSEOUS STRUCTURES: No significant abnormalities. VISUALIZED UPPER ABDOMEN: Normal. OTHER FINDINGS: None. IMPRESSION: No active disease. No significant interval change compared to the prior examination(s).
[2018-12-22 20:20] LABS: URINE BILIRUBIN NEGATIVE (NEGATIVE); URINE BLOOD NEGATIVE (NEGATIVE); URINE GLUCOSE (UA) NEGATIVE (NEGATIVE); URINE LEUKOCYTE ESTERASE NEGATIVE Leu/uL (NEGATIVE); URINE PROTEIN TRACE mg/dL (<30 mg/dL); URINE UROBILINOGEN 0.2 E.U./dL (<1 E.U./dL)
[2018-12-22 20:21] LABS: URINE APPEARANCE CLEAR (CLEAR); URINE COLOR LIGHT YELLOW (YELLOW)
[2018-12-22 20:33] LABS: URINE RBC 0 - 2 /hpf (0-2)
[2018-12-22] MEDS ORDERED: levETIRAcetam 500mg IVPB 500 MG/100 ML BAG IVPB SCH (22:00)
[2018-12-22] MEDS ORDERED: levETIRAcetam 500 MG in Sodium Chloride 0.9% 100 ML IVPB SCH (22:00)
--- NOTE | 2018-12-22 22:03 | CARD ---
APPROVED REPORT Date of service: 12/22/2018 EKG Measurement Heart [id number] <Conclusion> Atrial fibrillation with rapid ventricular response NDSTT abnormalities Abnormal ECG
[2018-12-22] MEDS: Enoxaparin 100 mg Syringe SC SCH (22:33)
--- NOTE | 2018-12-23 00:07 | CP.PCM.HP ---
<Christopher Jordan - Last Filed: 12/23/18 00:14> History of Present Illness - History of Present Illness History of Present Illness: Christopher Jordan DO PGY-1 H&P Note for Dr. Fercho Neff: altered mental status 68 y/o male with PMH of CVA (with left sided residual weakness), HTN, HLD, CAD, Afib, seizure disorder BIBEMS for AMS. Patient was noted by his caregiver to be confused and not himself. Caregiver denies associated trauma, fall, LOC, seizure activity, tongue biting, fecal/urine incontinence, N/V, fever, chills, neck stiffness or recent sickness. Patient is a poor historian and still confused at time of the exam (his baseline). Son at bedside but was away during the episode, he does not know much about the patient. full ROS is limited due to patient condition PMHx: CVA (with left sided residual weakness), HTN, HLD, CAD, Afib, seizure disorder, descending aortic aneurysm. PSHx: CABG Allergies: NKDA Social:no alcohol, smoking, drug use Family Hx: unknown PMD: Dr. Kayla Nova Home meds: unknown. son will bring them in am Present on Admission - Present on Admission Any Indicators Present on Admission: No Review of Systems - Review of Systems Systems not reviewed;Unavailable: Altered Mental Status Past Patient History - Past Social History Smoking Status: Never Smoked - CARDIAC Hx Cardiac Disorders: Yes Hx Hypertension: Yes - PULMONARY Hx Chronic Obstructive Pulmonary Disease (COPD): No - NEUROLOGICAL HX Cerebrovascular Accident: Yes - RENAL Hx Chronic Kidney Disease: No - ENDOCRINE/METABOLIC Hx Endocrine Disorders: No - HEMATOLOGICAL/ONCOLOGICAL Hx Anemia: No Hx Cancer: No - MUSCULOSKELETAL/RHEUMATOLOGICAL Hx Falls: No - GASTROINTESTINAL Hx Gastrointestinal Disorders: No - PSYCHIATRIC Hx Depression: No Hx Emotional Abuse: No Hx Physical Abuse: No Hx Substance Use: No - SURGICAL HISTORY Hx Arteriovenous Shunt: Yes Hx Coronary Artery Bypass Graft: Yes - ANESTHESIA Hx Anesthesia: Yes Hx Anesthesia Reactions: No Hx Malignant Hyperthermia: No Meds Allergies/Adverse Reactions: Allergies Allergy/AdvReac Type Severity Reaction Status Date / Time No Known Allergies Allergy Verified 01/27/12 13:30 Physical Exam - Constitutional Appears: Confused - Head Exam Head Exam: ATRAUMATIC, NORMAL INSPECTION, NORMOCEPHALIC - Eye Exam Eye Exam: EOMI, Normal appearance, PERRL Pupil Exam: NORMAL ACCOMODATION, PERRL - ENT Exam ENT Exam: Mucous Membranes Moist, Normal Exam - Neck Exam Neck exam: Positive for: Normal Inspection - Respiratory Exam Respiratory Exam: Clear to Auscultation Bilateral, NORMAL BREATHING PATTERN. absent: Rales, Rhonchi, Wheezes - Cardiovascular Exam Cardiovascular Exam: REGULAR RHYTHM, +S1, +S2 - GI/Abdominal Exam GI & Abdominal Exam: Normal Bowel Sounds, Soft. absent: Guarding, Mass, Rigid, Tenderness - Extremities Exam Extremities exam: Positive for: normal capillary refill, normal inspection, pedal pulses present - Back Exam Back exam: NORMAL INSPECTION - Neurological Exam Neurological exam: Altered, CN II-XII Intact Additional comments: Left Upper Extremity: 3, Right Upper Extremity: 5, Left Lower Extremity: 3, Right Lower Extremity: 5 intact sensation throughout - Psychiatric Exam Psychiatric exam: Anxious - Skin Skin Exam: Dry, Intact, Normal Color, Warm Results - Vital Signs Recent Vital Signs: Last Vital Signs Temp Pulse 98 H 12/22/18 22:39 Resp 18 12/22/18 22:39 BP 148/90 12/22/18 22:39 Pulse Ox 95 12/22/18 22:39 - Labs Result Diagrams: 12/22/18 18:21 12/22/18 18:21 Labs: Laboratory Results - last 24 hr 12/22/18 12/22/18 12/22/18 18:21 18:21 18:21 WBC 9.5 RBC 4.86 Hgb 15.3 Hct 46.8 MCV 96.3 D MCH 31.5 MCHC 32.7 RDW 13.4 Plt Count 205 MPV 9.7 Neut % (Auto) 61.7 Lymph % (Auto) 28.5 [place] % (Auto) 8.5 H Eos % (Auto) 1.1 L Baso % (Auto) 0.2 Lymph # (Auto) 2.7 [place] # (Auto) 0.8 H Eos # (Auto) 0.1 Baso # (Auto) 0.02 Absolute Neuts (auto) 5.88 PT 13.6 H INR 1.23 APTT 31.3 Sodium 145 Potassium 5.2 H Chloride 104 Carbon Dioxide 30 Anion Gap 16 BUN 23 H Creatinine 0.9 Est GFR ( Amer) > 60 Est GFR (Non-Af Amer) > 60 Random Glucose 139 H Calcium 9.2 Total Bilirubin 0.8 AST 23 ALT 11 Alkaline Phosphatase 119 Troponin I < 0.01 Total Protein 8.0 Albumin 4.2 Globulin 3.8 Albumin/Globulin Ratio 1.1 Triglycerides 122 Cholesterol 227 H LDL Cholesterol Direct 147 H HDL Cholesterol 46 Urine Color Urine Appearance Urine pH Ur Specific [place] Urine Protein Urine Glucose (UA) Urine Ketones Urine Blood Urine Nitrate Urine Bilirubin Urine Urobilinogen Ur Leukocyte Esterase Urine RBC Urine WBC Ur Epithelial Cells Blood Type Antibody Screen BBK History Checked 12/22/18 12/22/18 18:33 20:10 WBC RBC Hgb Hct MCV MCH MCHC RDW Plt Count MPV Neut % (Auto) Lymph % (Auto) [place] % (Auto) Eos % (Auto) Baso % (Auto) Lymph # (Auto) [place] # (Auto) Eos # (Auto) Baso # (Auto) Absolute Neuts (auto) PT INR APTT Sodium Potassium Chloride Carbon Dioxide Anion Gap BUN Creatinine Est GFR ( Amer) Est GFR (Non-Af Amer) Random Glucose Calcium Total Bilirubin AST ALT Alkaline Phosphatase Troponin I Total Protein Albumin Globulin Albumin/Globulin Ratio Triglycerides Cholesterol LDL Cholesterol Direct HDL Cholesterol Urine Color Light yellow Urine Appearance Clear Urine pH 7.0 Ur Specific [place] 1.015 Urine Protein Trace H Urine Glucose (UA) Negative Urine Ketones Negative Urine Blood Negative Urine Nitrate Negative Urine Bilirubin Negative Urine Urobilinogen 0.2 Ur Leukocyte Esterase Negative Urine RBC 0 - 2 Urine WBC None Ur Epithelial Cells None Blood Type O POSITIVE Antibody Screen Negative BBK History Checked Patient has bt Assessment & Plan - Assessment and Plan (Free Text) Assessment: 68 y/o male with PMH of CVA (with left sided residual weakness), HTN, HLD, CAD, Afib, seizure disorder BIBEMS for AMS. CT head shows old infarct. no ICH or acut e pathology. Symptoms improved, did not receive tPA. Patient admitted for seizure vs CVA workup. Plan: AMS: -likey post-ectal vs CVA -patient has h/o CVS with left residual deficit, has seizure disorder, AED compliance is unknown -CT head: old infarct. no ICH or acute pathology -symptoms improved, did not receive tPA -asa 325 stat, then daily -started keppra 750 mg bid -seizure/fall/aspiration precautions -neuro check -failed swallow eval -NPO -lipid profile: high LDL, total chol -PT/INR wnl -PT eval/treat -f/u UA, UDS, TSH -swallow eval -neuro consulted, Dr. Kisha Lozoya Afib: -hold home eliquis -started levonox 100 q12 -cardizem 5mg IVP prn -Echo with bubble study (10/09): negative for PFO HTN, CAD s/p CABG: -meds to be verified -hold anti HTN meds -monitor BP PPX: DVT: SCD, lovenox GI: protonix NPO Case reviewed and plan discussed with attending Dr Fercho Jordan, DO <Nelida Brantley - Last Filed: 12/25/18 06:10> Results - Vital Signs Recent Vital Signs: Last Vital Signs Temp 98.4 F 12/23/18 12:00 Pulse 88 12/23/18 14:00 Resp 18 12/23/18 12:00 BP 152/89 H 12/23/18 12:00 Pulse Ox 96 12/23/18 06:00 - Labs Result Diagrams: 12/24/18 06:50 12/24/18 06:50 Labs: Laboratory Results - last 24 hr 12/22/18 12/22/18 12/22/18 18:21 18:21 18:21 WBC 9.5 RBC 4.86 Hgb 15.3 Hct 46.8 MCV 96.3 D MCH 31.5 MCHC 32.7 RDW 13.4 Plt Count 205 MPV 9.7 Neut % (Auto) 61.7 Lymph % (Auto) 28.5 [place] % (Auto) 8.5 H Eos % (Auto) 1.1 L Baso % (Auto) 0.2 Lymph # (Auto) 2.7 [place] # (Auto) 0.8 H Eos # (Auto) 0.1 Baso # (Auto) 0.02 Absolute Neuts (auto) 5.88 PT 13.6 H INR 1.23 APTT 31.3 Sodium 145 Potassium 5.2 H Chloride 104 Carbon Dioxide 30 Anion Gap 16 BUN 23 H Creatinine 0.9 Est GFR ( Amer) > 60 Est GFR (Non-Af Amer) > 60 POC Glucose (mg/dL) Random Glucose 139 H Calcium 9.2 Magnesium Total Bilirubin 0.8 AST 23 ALT 11 Alkaline Phosphatase 119 Troponin I < 0.01 Total Protein 8.0 Albumin 4.2 Globulin 3.8 Albumin/Globulin Ratio 1.1 Triglycerides 122 Cholesterol 227 H LDL Cholesterol Direct 147 H HDL Cholesterol 46 TSH 3rd Generation Urine Color Urine Appearance Urine pH Ur Specific [place] Urine Protein Urine Glucose (UA) Urine Ketones Urine Blood Urine Nitrate Urine Bilirubin Urine Urobilinogen Ur Leukocyte Esterase Urine RBC Urine WBC Ur Epithelial Cells Blood Type Antibody Screen BBK History Checked 12/22/18 12/22/18 12/23/18 18:33 20:10 06:30 WBC 7.4 D RBC 4.49 Hgb 13.9 L Hct 42.4 MCV 94.4 MCH 31.0 MCHC 32.8 RDW 13.3 Plt Count 195 MPV 9.7 Neut % (Auto) Lymph % (Auto) [place] % (Auto) Eos % (Auto) Baso % (Auto) Lymph # (Auto) [place] # (Auto) Eos # (Auto) Baso # (Auto) Absolute Neuts (auto) PT INR APTT Sodium Potassium Chloride Carbon Dioxide Anion Gap BUN Creatinine Est GFR ( Amer) Est GFR (Non-Af Amer) POC Glucose (mg/dL) Random Glucose Calcium Magnesium Total Bilirubin AST ALT Alkaline Phosphatase Troponin I Total Protein Albumin Globulin Albumin/Globulin Ratio Triglycerides Cholesterol LDL Cholesterol Direct HDL Cholesterol TSH 3rd Generation Urine Color Light yellow Urine Appearance Clear Urine pH 7.0 Ur Specific [place] 1.015 Urine Protein Trace H Urine Glucose (UA) Negative Urine Ketones Negative Urine Blood Negative Urine Nitrate Negative Urine Bilirubin Negative Urine Urobilinogen 0.2 Ur Leukocyte Esterase Negative Urine RBC 0 - 2 Urine WBC None Ur Epithelial Cells None Blood Type O POSITIVE Antibody Screen Negative BBK History Checked Patient has bt 12/23/18 12/23/18 12/23/18 06:30 06:30 07:17 WBC RBC Hgb Hct MCV MCH MCHC RDW Plt Count MPV Neut % (Auto) Lymph % (Auto) [place] % (Auto) Eos % (Auto) Baso % (Auto) Lymph # (Auto) [place] # (Auto) Eos # (Auto) Baso # (Auto) Absolute Neuts (auto) PT INR APTT Sodium 138 Potassium 4.1 Chloride 103 Carbon Dioxide 26 Anion Gap 12 BUN 14 Creatinine 0.7 L Est GFR ( Amer) > 60 Est GFR (Non-Af Amer) > 60 POC Glucose (mg/dL) 106 Random Glucose 92 Calcium 8.7 Magnesium 1.9 Total Bilirubin 1.5 H AST 21 ALT 7 Alkaline Phosphatase 94 Troponin I Total Protein 7.0 Albumin 3.6 Globulin 3.4 Albumin/Globulin Ratio 1.1 Triglycerides Cholesterol LDL Cholesterol Direct HDL Cholesterol TSH 3rd Generation 2.33 Urine Color Urine Appearance Urine pH Ur Specific [place] Urine Protein Urine Glucose (UA) Urine Ketones Urine Blood Urine Nitrate Urine Bilirubin Urine Urobilinogen Ur Leukocyte Esterase Urine RBC Urine WBC Ur Epithelial Cells Blood Type Antibody Screen BBK History Checked 12/23/18 12/23/18 10:43 15:49 WBC RBC Hgb Hct MCV MCH MCHC RDW Plt Count MPV Neut % (Auto) Lymph % (Auto) [place] % (Auto) Eos % (Auto) Baso % (Auto) Lymph # (Auto) [place] # (Auto) Eos # (Auto) Baso # (Auto) Absolute Neuts (auto) PT INR APTT Sodium Potassium Chloride Carbon Dioxide Anion Gap BUN Creatinine Est GFR ( Amer) Est GFR (Non-Af Amer) POC Glucose (mg/dL) 111 H 100 Random Glucose Calcium Magnesium Total Bilirubin AST ALT Alkaline Phosphatase Troponin I Total Protein Albumin Globulin Albumin/Globulin Ratio Triglycerides Cholesterol LDL Cholesterol Direct HDL Cholesterol TSH 3rd Generation Urine Color Urine Appearance Urine pH Ur Specific [place] Urine Protein Urine Glucose (UA) Urine Ketones Urine Blood Urine Nitrate Urine Bilirubin Urine Urobilinogen Ur Leukocyte Esterase Urine RBC Urine WBC Ur Epithelial Cells Blood Type Antibody Screen BBK History Checked Attending/Attestation - Attestation I have personally seen and examined this patient.: Yes I have fully participated in the care of the patient.: Yes I have reviewed all pertinent clinical information: Yes Notes (Text): 12/23/18 18:23 Seen and examined. Discussed with resident. Neurology to decide on W/U for seizure Vs. CVA.
[2018-12-23 04:01] VITALS: BMI 28.7
[2018-12-23 07:21] LABS: HEMOGLOBIN 13.9 g/dL (14.0-18.0); MEAN CELL VOLUME 94.4 fl (80.0-105.0); MEAN CORPUSCULAR HGB CONC 32.8 g/dl (31.0-37.0); MEAN PLATELET VOLUME 9.7 fl (7.0-11.0); RBC 4.49 10^6/uL (3.5-6.1); RED CELL DISTRIBUTION WIDTH 13.3 % (11.5-14.5); WHITE BLOOD COUNT 7.4 10^3/uL (4.5-11.0)
[2018-12-23 08:15] LABS: ALB/GLOB RATIO 1.1 (1.1-1.8); ALBUMIN 3.6 g/dL (3.0-4.8); ALT/SGPT 7 U/L (7-56); AST/SGOT 21 U/L (17-59); BLOOD UREA NITROGEN 14 mg/dL (7-21); CALCIUM 8.7 mg/dL (8.4-10.5); GFR NON-AFRICAN AMERICAN > 60
[2018-12-23] MEDS: Enoxaparin 100 mg Syringe SC SCH ×2 (10:01→21:38)
[2018-12-23] MEDS: Sodium Chloride 0.9% 1,000 ML IV SCH (10:01)
--- NOTE | 2018-12-23 13:49 | CP.PCM.CON ---
History of Present Illness - History of Present Illness History of Present Illness: Neurology Consultation Note: Consult requested by Dr. Gomez The patient is a 68-year-old man with a past medical history of previous stroke with residual deficits, HTN, HLD, CAD, Afib (on anticoagulation), seizure disorder (on Keppra), who presented yesterday after an episode of confusion, aphasia, staring, that gradually resolved. He was suspected to have had a seizure and was post-ictal. Neurology was consulted to assist with the management and care. Review of Systems - Review of Systems Systems not reviewed;Unavailable: Altered Mental Status - Constitutional Constitutional: As Per HPI - EENT Eyes: absent: As Per HPI, Blind Spots, Blurred Vision, Change in Vision, Decreased Night Vision, Diplopia, Discharge, Dry Eye, Exophthalmos, Floaters, Irritation, Itchy Eyes, Loss of Peripheral Vision, Pain, Photophobia, Requires Corrective Lenses, Sees Flashes, Spots in Vision, Tunnel Vision, Other Visual Disturbances, Loss of Vision, Other Ears: absent: As Per HPI, Decreased Hearing, Ear Discharge, Ear Pain, Tinnitus, Abnormal Hearing, Disequilibrium, Dizziness, Other Nose/Mouth/Throat: absent: As Per HPI, Epistaxis, Nasal Congestion, Nasal Discharge, Nasal Obstruction, Nasal Trauma, Nose Pain, Post Nasal Drip, Sinus Pain, Sinus Pressure, Bleeding Gums, Change in Voice, Dental Pain, Dry Mouth, Dysphagia, Halitosis, Hoarsness, Lip Swelling, Mouth Lesions, Mouth Pain, Odynophagia, Sore Throat, Throat Swelling, Tongue Swelling, Facial Pain, Neck Pain, Neck Mass, Other - Cardiovascular Cardiovascular: absent: As Per HPI, Acrocyanosis, Chest Pain, Chest Pain at Rest, Chest Pain with Activity, Claudication, Diaphoresis, Dyspnea, Dyspnea on Exertion, Edema, Irregular Heart Rhythm, Pain Radiating to Arm/Neck/Jaw, Leg Edema, Leg Ulcers, Lightheadedness, Orthopnea, Palpitations, Paroxysmal Nocturnal Dyspnea, Pedal Edema, Radiating Pain, Rapid Heart Rate, Slow Heart Rate, Syncope, Other - Respiratory Respiratory: absent: As Per HPI, Cough, Dyspnea, Hemoptysis, Dyspnea on Exertion, Wheezing, Snoring, Stridor, Pain on Inspiration, Chest Congestion, Excessive Mucous Production, Change in Mucous Color, Pain with Coughing, Other - Gastrointestinal Gastrointestinal: absent: As Per HPI, Abdominal Pain, Belching, Bloating, Change in Bowel Habits, Change in Stool Character, Coffee Ground Emesis, Constipation, Cramping, Diarrhea, Dyspepsia, Dysphagia, Early Satiety, Excessive Flatus, Fecal Incontinence, Heartburn, Hematemesis, Hematochezia, Loose Stools, Melena, Nausea, Odynophagia, Temesmus, Vomiting, Other - Musculoskeletal Musculoskeletal: absent: As Per HPI, Abnormal Gait, Arthralgias, Atrophy, Back Pain, Deformity, Joint Swelling, Limited Range of Motion, Loss of Height, Muscle Cramps, Muscle Weakness, Myalgias, Neck Pain, Numbness, Radiating Pain into Limb , Stiffness, Tingling, Other - Integumentary Integumentary: absent: As Per HPI, Acne, Alopecia, Bleeding Lesions, Change in Hair, Change in Nails, Change in Pigmentation, Changing Lesions, Dry Skin, Erythema, Furuncle, Hirsutism, Lesions, New Lesions, Non-Healing Lesions, Photosensitivity, Pruritus, Rash, Skin Pain, Skin Ulcer, Sores, Striae, Swelling, Unusual Bruising, Wounds, Jaundice, Other - Neurological Neurological: As Per HPI - Psychiatric Psychiatric: absent: As Per HPI, Abnormal Sleep Pattern, Anhedonia, Anxiety, Auditory Hallucinations, Behavioral Changes, Change in Appetite, Change in Libido, Confusion, Depression, Difficulty Concentrating, Hallucinations, Homicid al Ideation, Hopelessness, Irritability, Memory Loss, Mood Swings, Panic Attacks, Paranoia, Suicidal Ideation, Visual Hallucinations, Tactile Hallucinations, Other - Endocrine Endocrine: absent: As Per HPI, Change in Body Appearance, Change in Libido, Cold Intolorance, Deepening of Voice, Excessive Sweating, Fatigue, Flushing, Heat Intolorance, Increase in Ring/Shoe/Hat Size, Palpitations, Polydipsia, Polyphagia, Polyuria, Other - Hematologic/Lymphatic Hematologic: absent: As Per HPI, Easy Bleeding, Easy Bruising, Lymphadenopathy, Other Past Patient History - Past Social History Smoking Status: Never Smoked - CARDIAC Hx Cardiac Disorders: Yes Hx Hypertension: Yes - PULMONARY Hx Chronic Obstructive Pulmonary Disease (COPD): No - NEUROLOGICAL HX Cerebrovascular Accident: Yes (L sided weakness) - RENAL Hx Chronic Kidney Disease: No - ENDOCRINE/METABOLIC Hx Endocrine Disorders: No - HEMATOLOGICAL/ONCOLOGICAL Hx Anemia: No Hx Cancer: No - MUSCULOSKELETAL/RHEUMATOLOGICAL Hx Falls: No - GASTROINTESTINAL Hx Gastrointestinal Disorders: No - GENITOURINARY/GYNECOLOGICAL Hx Incontinence: Yes - PSYCHIATRIC Hx Depression: No Hx Emotional Abuse: No Hx Physical Abuse: No Hx Substance Use: No - SURGICAL HISTORY Hx Arteriovenous Shunt: Yes Hx Coronary Artery Bypass Graft: Yes - ANESTHESIA Hx Anesthesia: Yes Hx Anesthesia Reactions: No Hx Malignant Hyperthermia: No Meds Allergies/Adverse Reactions: Allergies Allergy/AdvReac Type Severity Reaction Status Date / Time No Known Allergies Allergy Verified 01/27/12 13:30 - Medications Medications: Current Medications Acetaminophen (Tylenol 325mg Tab) 650 mg PO Q6 PRN PRN Reason: Fever 101F & Above Aspirin (Aspirin Supp) 300 mg RC DAILY [facility] Last Admin: 12/23/18 10:01 Dose: 300 mg Atorvastatin Calcium (Lipitor) 80 mg PO DAILY [facility] Last Admin: 12/23/18 10:01 Dose: Not Given Diltiazem HCl (Cardizem) 5 mg IVP Q6H PRN PRN Reason: Heart rate Enoxaparin Sodium (Lovenox) 100 mg SC Q12H JONY; Protocol Last Admin: 12/23/18 10:01 Dose: 100 mg Sodium Chloride (Sodium Chloride 0.9%) 1,000 mls @ 100 mls/hr IV .Q10H JONY Last Admin: 12/23/18 10:01 Dose: 100 mls/hr Levetiracetam 750 mg/ Sodium (Chloride) 107.5 mls @ 215 mls/hr IVPB Q12 JONY Last Admin: 12/23/18 10:00 Dose: 215 mls/hr Lorazepam (Ativan) 2 mg IVP Q6H PRN; Protocol PRN Reason: Seizure activity Pantoprazole Sodium (Protonix Inj) 40 mg IVP DAILY [facility] Last Admin: 12/23/18 10:01 Dose: 40 mg Physical Exam - Constitutional Appears: Well - Head Exam Head Exam: ATRAUMATIC, NORMAL INSPECTION, NORMOCEPHALIC - Eye Exam Eye Exam: EOMI, Normal appearance, PERRL Pupil Exam: NORMAL ACCOMODATION, PERRL - ENT Exam ENT Exam: Mucous Membranes Moist, Normal Exam - Neck Exam Neck exam: Positive for: Normal Inspection - Respiratory Exam Respiratory Exam: Clear to Auscultation Bilateral, NORMAL BREATHING PATTERN - Cardiovascular Exam Cardiovascular Exam: REGULAR RHYTHM, +S1, +S2 - GI/Abdominal Exam GI & Abdominal Exam: Normal Bowel Sounds, Soft. absent: Tenderness - Extremities Exam Extremities exam: Positive for: normal inspection - Back Exam Back exam: NORMAL INSPECTION - Neurological Exam Neurological exam: Abnormal Gait, Alert, Altered, CN II-XII Intact Additional comments: Left facial droop noted, slight dysarthria Left side slightly weaker than right and decreased sensation. Reflexes are brisk on the left upper and lower extremities. - Psychiatric Exam Psychiatric exam: Normal Affect, Normal Mood - Skin Skin Exam: Dry, Intact, Normal Color, Warm Results - Vital Signs Recent Vital Signs: Last Vital Signs Temp 98.4 F 12/23/18 12:00 Pulse 73 12/23/18 12:00 Resp 18 12/23/18 12:00 BP 152/89 H 12/23/18 12:00 Pulse Ox 96 12/23/18 06:00 - Labs Result Diagrams: 12/23/18 06:30 12/23/18 06:30 Labs: Laboratory Results - last 24 hr 12/22/18 12/22/18 12/22/18 18:21 18:21 18:21 WBC 9.5 RBC 4.86 Hgb 15.3 Hct 46.8 MCV 96.3 D MCH 31.5 MCHC 32.7 RDW 13.4 Plt Count 205 MPV 9.7 Neut % (Auto) 61.7 Lymph % (Auto) 28.5 [place] % (Auto) 8.5 H Eos % (Auto) 1.1 L Baso % (Auto) 0.2 Lymph # (Auto) 2.7 [place] # (Auto) 0.8 H Eos # (Auto) 0.1 Baso # (Auto) 0.02 Absolute Neuts (auto) 5.88 PT 13.6 H INR 1.23 APTT 31.3 Sodium 145 Potassium 5.2 H Chloride 104 Carbon Dioxide 30 Anion Gap 16 BUN 23 H Creatinine 0.9 Est GFR ( Amer) > 60 Est GFR (Non-Af Amer) > 60 POC Glucose (mg/dL) Random Glucose 139 H Calcium 9.2 Magnesium Total Bilirubin 0.8 AST 23 ALT 11 Alkaline Phosphatase 119 Troponin I < 0.01 Total Protein 8.0 Albumin 4.2 Globulin 3.8 Albumin/Globulin Ratio 1.1 Triglycerides 122 Cholesterol 227 H LDL Cholesterol Direct 147 H HDL Cholesterol 46 TSH 3rd Generation Urine Color Urine Appearance Urine pH Ur Specific [place] Urine Protein Urine Glucose (UA) Urine Ketones Urine Blood Urine Nitrate Urine Bilirubin Urine Urobilinogen Ur Leukocyte Esterase Urine RBC Urine WBC Ur Epithelial Cells Blood Type Antibody Screen BBK History Checked 12/22/18 12/22/18 12/23/18 18:33 20:10 06:30 WBC 7.4 D RBC 4.49 Hgb 13.9 L Hct 42.4 MCV 94.4 MCH 31.0 MCHC 32.8 RDW 13.3 Plt Count 195 MPV 9.7 Neut % (Auto) Lymph % (Auto) [place] % (Auto) Eos % (Auto) Baso % (Auto) Lymph # (Auto) [place] # (Auto) Eos # (Auto) Baso # (Auto) Absolute Neuts (auto) PT INR APTT Sodium Potassium Chloride Carbon Dioxide Anion Gap BUN Creatinine Est GFR ( Amer) Est GFR (Non-Af Amer) POC Glucose (mg/dL) Random Glucose Calcium Magnesium Total Bilirubin AST ALT Alkaline Phosphatase Troponin I Total Protein Albumin Globulin Albumin/Globulin Ratio Triglycerides Cholesterol LDL Cholesterol Direct HDL Cholesterol TSH 3rd Generation Urine Color Light yellow Urine Appearance Clear Urine pH 7.0 Ur Specific [place] 1.015 Urine Protein Trace H Urine Glucose (UA) Negative Urine Ketones Negative Urine Blood Negative Urine Nitrate Negative Urine Bilirubin Negative Urine Urobilinogen 0.2 Ur Leukocyte Esterase Negative Urine RBC 0 - 2 Urine WBC None Ur Epithelial Cells None Blood Type O POSITIVE Antibody Screen Negative BBK History Checked Patient has bt 12/23/18 12/23/18 12/23/18 06:30 06:30 07:17 WBC RBC Hgb Hct MCV MCH MCHC RDW Plt Count MPV Neut % (Auto) Lymph % (Auto) [place] % (Auto) Eos % (Auto) Baso % (Auto) Lymph # (Auto) [place] # (Auto) Eos # (Auto) Baso # (Auto) Absolute Neuts (auto) PT INR APTT Sodium 138 Potassium 4.1 Chloride 103 Carbon Dioxide 26 Anion Gap 12 BUN 14 Creatinine 0.7 L Est GFR ( Amer) > 60 Est GFR (Non-Af Amer) > 60 POC Glucose (mg/dL) 106 Random Glucose 92 Calcium 8.7 Magnesium 1.9 Total Bilirubin 1.5 H AST 21 ALT 7 Alkaline Phosphatase 94 Troponin I Total Protein 7.0 Albumin 3.6 Globulin 3.4 Albumin/Globulin Ratio 1.1 Triglycerides Cholesterol LDL Cholesterol Direct HDL Cholesterol TSH 3rd Generation 2.33 Urine Color Urine Appearance Urine pH Ur Specific [place] Urine Protein Urine Glucose (UA) Urine Ketones Urine Blood Urine Nitrate Urine Bilirubin Urine Urobilinogen Ur Leukocyte Esterase Urine RBC Urine WBC Ur Epithelial Cells Blood Type Antibody Screen BBK History Checked 12/23/18 10:43 WBC RBC Hgb Hct MCV MCH MCHC RDW Plt Count MPV Neut % (Auto) Lymph % (Auto) [place] % (Auto) Eos % (Auto) Baso % (Auto) Lymph # (Auto) [place] # (Auto) Eos # (Auto) Baso # (Auto) Absolute Neuts (auto) PT INR APTT Sodium Potassium Chloride Carbon Dioxide Anion Gap BUN Creatinine Est GFR ( Amer) Est GFR (Non-Af Amer) POC Glucose (mg/dL) 111 H Random Glucose Calcium Magnesium Total Bilirubin AST ALT Alkaline Phosphatase Troponin I Total Protein Albumin Globulin Albumin/Globulin Ratio Triglycerides Cholesterol LDL Cholesterol Direct HDL Cholesterol TSH 3rd Generation Urine Color Urine Appearance Urine pH Ur Specific [place] Urine Protein Urine Glucose (UA) Urine Ketones Urine Blood Urine Nitrate Urine Bilirubin Urine Urobilinogen Ur Leukocyte Esterase Urine RBC Urine WBC Ur Epithelial Cells Blood Type Antibody Screen BBK History Checked Assessment & Plan (1) Altered mental status Assessment and Plan: Likely due to seizure with post-ictal state. Will increase Keppra to 750 mg BID. Status: Acute (2) Atrial fibrillation Assessment and Plan: Will start Eliquis 5 mg BID for secondary stroke prevention. Status: Acute (3) CVA (cerebral vascular accident) Assessment and Plan: MRI of the brain without contrast to ensure he did not have another stroke since there are many infarcts on the CT head. Status: Acute
--- NOTE | 2018-12-24 00:38 | CP.PCM.PN ---
<Tyler Marquez - Last Filed: 12/24/18 02:07> Subjective - Date & Time of Evaluation Date of Evaluation: 12/24/18 Time of Evaluation: 00:38 - Subjective Subjective: Patient had 10 beats of V- tach. Patient is resting comfortably. He denies chest pain, palpitations, diaphoresis, shortness of breath, nausea, or any other complaints. VS: BP: 150/96, HR: 109, T: 98.2, O2: 98% on RA Gen: Resting comfortably, NAD Cardio: Tachycardia, irregular rhythm, +S1, +S2 Lung: CTA b/l Abd: Soft, NT Ext: no edema A: Patient is a 68 y/o male with PMH of CVA (with left sided residual weakness), HTN, HLD, CAD, Afib, seizure disorder, admitted for AMS. Patient had 10 beats of V-tach. Patient is asymptomatic and resting comfortably. P: - Ordered stat BMP and Magnesium levels: WNL - Ordered stat EKG: Atrial fibrillation with RVR @ 117 bpm - Patient has PRN Cardizem if SBP is sustained >120 bpm - Will continue to monitor Tyler Marquez, PGY-1 Objective - Vital Signs/Intake and Output Vital Signs (last 24 hours): Temp Pulse Resp BP Pulse Ox 97.9 F 99 H 18 170/74 H 97 12/23/18 18:00 12/23/18 21:51 12/23/18 18:00 12/23/18 18:00 12/23/18 18:00 Intake and Output: 12/23/18 12/24/18 18:59 06:59 Intake Total 240 Output Total 1020 Balance -780 - Medications Medications: Current Medications Acetaminophen (Tylenol 325mg Tab) 650 mg PO Q6 PRN PRN Reason: Fever 101F & Above Aspirin (Aspirin Supp) 300 mg RC DAILY [facility] Last Admin: 12/23/18 10:01 Dose: 300 mg Atorvastatin Calcium (Lipitor) 80 mg PO DAILY [facility] Last Admin: 12/23/18 10:01 Dose: Not Given Diltiazem HCl (Cardizem) 5 mg IVP Q6H PRN PRN Reason: Heart rate Enoxaparin Sodium (Lovenox) 100 mg SC Q12H [facility]; Protocol Last Admin: 12/23/18 21:38 Dose: 100 mg Sodium Chloride (Sodium Chloride 0.9%) 1,000 mls @ 100 mls/hr IV .Q10H [facility] Last Admin: 12/23/18 10:01 Dose: 100 mls/hr Levetiracetam 750 mg/ Sodium (Chloride) 107.5 mls @ 215 mls/hr IVPB Q12 [facility] Last Admin: 12/23/18 21:38 Dose: 215 mls/hr Lorazepam (Ativan) 2 mg IVP Q6H PRN; Protocol PRN Reason: Seizure activity Pantoprazole Sodium (Protonix Inj) 40 mg IVP DAILY [facility] Last Admin: 12/23/18 10:01 Dose: 40 mg - Labs Labs: 12/23/18 06:30 12/23/18 06:30 PT 13.6 SECONDS (9.4-12.5) H 12/22/18 18:21 INR 1.23 12/22/18 18:21 APTT 31.3 Seconds (26.9-38.3) 12/22/18 18:21 <Nelida Brantley - Last Filed: 12/24/18 18:42> Objective - Vital Signs/Intake and Output Vital Signs (last 24 hours): Temp Pulse Resp BP Pulse Ox 98.0 F 69 18 138/71 97 12/24/18 06:00 12/24/18 17:56 12/24/18 06:00 12/24/18 17:16 12/24/18 06:00 Intake and Output: 12/24/18 12/24/18 06:59 18:59 Intake Total 300 Output Total 600 Balance -300 - Medications Medications: Current Medications Acetaminophen (Tylenol 325mg Tab) 650 mg PO Q6 PRN PRN Reason: Fever 101F & Above Apixaban (Eliquis) 5 mg PO BID [facility]; Protocol Last Admin: 12/24/18 17:16 Dose: 5 mg Aspirin (Ecotrin) 81 mg PO DAILY [facility] Last Admin: 12/24/18 09:21 Dose: 81 mg Atorvastatin Calcium (Lipitor) 80 mg PO DAILY [facility] Last Admin: 12/24/18 09:21 Dose: 80 mg Diltiazem HCl (Cardizem) 5 mg IVP Q6H PRN PRN Reason: Heart rate Last Admin: 12/24/18 02:28 Dose: 5 mg Diltiazem HCl (Cardizem Cd) 180 mg PO DAILY [facility] Last Admin: 12/24/18 09:22 Dose: 180 mg Levetiracetam 750 mg/ Sodium (Chloride) 107.5 mls @ 215 mls/hr IVPB Q12 [facility] Last Admin: 12/24/18 09:20 Dose: 215 mls/hr Lorazepam (Ativan) 2 mg IVP Q6H PRN; Protocol PRN Reason: Seizure activity Metoprolol Tartrate (Lopressor) 25 mg PO BID [facility] Last Admin: 12/24/18 17:16 Dose: 25 mg Pantoprazole Sodium (Protonix Inj) 40 mg IVP DAILY [facility] Last Admin: 12/24/18 09:21 Dose: 40 mg - Labs Labs: 12/24/18 06:50 12/24/18 06:50 PT 13.6 SECONDS (9.4-12.5) H 12/22/18 18:21 INR 1.23 12/22/18 18:21 APTT 31.3 Seconds (26.9-38.3) 12/22/18 18:21 Attending/Attestation - Attestation I have personally seen and examined this patient.: No I have fully participated in the care of the patient.: No I have reviewed all pertinent clinical information, including history, physical exam and plan: No
[2018-12-24 01:13] LABS: BLOOD UREA NITROGEN 11 mg/dL (7-21); CALCIUM 8.5 mg/dL (8.4-10.5); GFR NON-AFRICAN AMERICAN > 60
[2018-12-24] MEDS: Sodium Chloride 0.9% 1,000 ML IV SCH ×2 (06:05→09:23)
[2018-12-24 07:09] LABS: HEMOGLOBIN 14.4 g/dL (14.0-18.0); MEAN CORPUSCULAR HEMOGLOBIN 31.6 pg (25.0-35.0); MEAN PLATELET VOLUME 9.6 fl (7.0-11.0); RBC 4.55 10^6/uL (3.5-6.1); RED CELL DISTRIBUTION WIDTH 13.3 % (11.5-14.5); WHITE BLOOD COUNT 6.4 10^3/uL (4.5-11.0)
[2018-12-24 08:10] LABS: BARBITURATES, UR NEGATIVE (NEGATIVE); BENZODIAZEPINES, UR NEGATIVE (NEGATIVE); OPIATES, UR NEGATIVE (NEGATIVE); PHENCYCLIDINE, UR NEGATIVE (NEGATIVE)
[2018-12-24 08:19] LABS: ALBUMIN 3.4 g/dL (3.0-4.8); ALT/SGPT 11 U/L (7-56); AST/SGOT 20 U/L (17-59); BLOOD UREA NITROGEN 10 mg/dL (7-21); CALCIUM 8.5 mg/dL (8.4-10.5); GFR NON-AFRICAN AMERICAN > 60
[2018-12-24] MEDS: diltiaZEM 180 mg/24 Hours CD Cap PO SCH (09:22)
--- NOTE | 2018-12-24 10:45 | CARD ---
APPROVED REPORT Date of service: 12/24/2018 EKG Measurement Heart [id number] <Conclusion> Atrial fibrillation with rapid ventricular response Abnormal ECG
--- NOTE | 2018-12-24 12:00 | CP.PCM.PN ---
<Do Reynoso L - Last Filed: 12/24/18 13:47> Subjective - Date & Time of Evaluation Date of Evaluation: 12/24/18 Time of Evaluation: 08:00 - Subjective Subjective: Resident Progress Note for Hospitalist Service Patient examined at bedside. Overnight patient noted to have 10 beats of vtach, however patient was asymptomatic. Currently patient is oriented to person only. Denies any symptomatic complaints. Tolerated liquid diet well and passed repeat swallow evaluation for advancement to regular diet. Objective - Vital Signs/Intake and Output Vital Signs (last 24 hours): Temp Pulse Resp BP Pulse Ox 98.0 F 117 H 18 142/82 97 12/24/18 06:00 12/24/18 09:22 12/24/18 06:00 12/24/18 09:22 12/24/18 06:00 Intake and Output: 12/24/18 12/24/18 06:59 18:59 Intake Total 300 Output Total 600 Balance -300 - Medications Medications: Current Medications Acetaminophen (Tylenol 325mg Tab) 650 mg PO Q6 PRN PRN Reason: Fever 101F & Above Apixaban (Eliquis) 5 mg PO BID [facility]; Protocol Last Admin: 12/24/18 09:22 Dose: 5 mg Aspirin (Ecotrin) 81 mg PO DAILY [facility] Last Admin: 12/24/18 09:21 Dose: 81 mg Atorvastatin Calcium (Lipitor) 80 mg PO DAILY [facility] Last Admin: 12/24/18 09:21 Dose: 80 mg Diltiazem HCl (Cardizem) 5 mg IVP Q6H PRN PRN Reason: Heart rate Last Admin: 12/24/18 02:28 Dose: 5 mg Diltiazem HCl (Cardizem Cd) 180 mg PO DAILY [facility] Last Admin: 12/24/18 09:22 Dose: 180 mg Sodium Chloride (Sodium Chloride 0.9%) 1,000 mls @ 100 mls/hr IV .Q10H [facility] Last Admin: 12/24/18 09:23 Dose: Not Given Levetiracetam 750 mg/ Sodium (Chloride) 107.5 mls @ 215 mls/hr IVPB Q12 [facility] Last Admin: 12/24/18 09:20 Dose: 215 mls/hr Lorazepam (Ativan) 2 mg IVP Q6H PRN; Protocol PRN Reason: Seizure activity Metoprolol Tartrate (Lopressor) 25 mg PO BID [facility] Last Admin: 12/24/18 09:21 Dose: 25 mg Pantoprazole Sodium (Protonix Inj) 40 mg IVP DAILY [facility] Last Admin: 12/24/18 09:21 Dose: 40 mg - Labs Labs: 12/24/18 06:50 12/24/18 06:50 PT 13.6 SECONDS (9.4-12.5) H 12/22/18 18:21 INR 1.23 12/22/18 18:21 APTT 31.3 Seconds (26.9-38.3) 12/22/18 18:21 - Additional Findings Additional findings: - Constitutional Appears: Confused, Non-toxic - Head Exam Head Exam: ATRAUMATIC, NORMOCEPHALIC - Eye Exam Eye Exam: EOMI, Normal appearance - ENT Exam ENT Exam: Mucous Membranes Moist, Normal Exam - Respiratory Exam Respiratory Exam: Clear to Auscultation Bilateral, NORMAL BREATHING PATTERN. absent: Rales, Rhonchi, Wheezes - Cardiovascular Exam Cardiovascular Exam: REGULAR RHYTHM, +S1, +S2, Tachycardia - GI/Abdominal Exam GI & Abdominal Exam: Normal Bowel Sounds, Soft. absent: Guarding, Mass, Rigid, Tenderness - Extremities Exam Extremities exam: Positive for: normal capillary refill, normal inspection, pedal pulses present - Neurological Exam Neurological exam: Altered, Alert, Oriented x1, CN II-XII Intact Additional comments: Left Upper Extremity: 3, Right Upper Extremity: 5, Left Lower Extremity: 3, Right Lower Extremity: 5 Intact sensation throughout - Skin Skin Exam: Dry, Intact, Normal Color, Warm Assessment and Plan - Assessment and Plan (Free Text) Assessment: Patient is a 68 year old male with past medical history of CVA (with left sided residual weakness), HTN, HLD, CAD, Afib, seizure disorder admitted for workup and management of seizure vs CVA Plan: AMS - CT head shows old infarct, no ICH or acute pathology - tPA not administered - lipid profile: high LDL, total chol - ASA - Keppra 750 mg IV Q12 - seizure/fall/aspiration precautions, neurochecks - elevate head of bed - PT eval - UA, UDS, TSH unremarkable - Neurology consulted, recs appreciated - followup MRI brain Atrial fibrillation - home eliquis and cardizem resumed - Lovenox discontinued - ECHO negative for PFO HTN - home metoprolol resumed CAD s/p CABG - home Lipitor PPX DVT: SCD, lovenox GI: protonix Case reviewed with Dr. Juanita Reynoso PGY-1 <Tee Grant - Last Filed: 12/24/18 18:38> Objective - Vital Signs/Intake and Output Vital Signs (last 24 hours): Temp Pulse Resp BP Pulse Ox 98.0 F 69 18 138/71 97 12/24/18 06:00 12/24/18 17:56 12/24/18 06:00 12/24/18 17:16 12/24/18 06:00 Intake and Output: 12/24/18 12/24/18 06:59 18:59 Intake Total 300 Output Total 600 Balance -300 - Medications Medications: Current Medications Acetaminophen (Tylenol 325mg Tab) 650 mg PO Q6 PRN PRN Reason: Fever 101F & Above Apixaban (Eliquis) 5 mg PO BID [facility]; Protocol Last Admin: 12/24/18 17:16 Dose: 5 mg Aspirin (Ecotrin) 81 mg PO DAILY [facility] Last Admin: 12/24/18 09:21 Dose: 81 mg Atorvastatin Calcium (Lipitor) 80 mg PO DAILY [facility] Last Admin: 12/24/18 09:21 Dose: 80 mg Diltiazem HCl (Cardizem) 5 mg IVP Q6H PRN PRN Reason: Heart rate Last Admin: 12/24/18 02:28 Dose: 5 mg Diltiazem HCl (Cardizem Cd) 180 mg PO DAILY [facility] Last Admin: 12/24/18 09:22 Dose: 180 mg Levetiracetam 750 mg/ Sodium (Chloride) 107.5 mls @ 215 mls/hr IVPB Q12 [facility] Last Admin: 12/24/18 09:20 Dose: 215 mls/hr Lorazepam (Ativan) 2 mg IVP Q6H PRN; Protocol PRN Reason: Seizure activity Metoprolol Tartrate (Lopressor) 25 mg PO BID [facility] Last Admin: 12/24/18 17:16 Dose: 25 mg Pantoprazole Sodium (Protonix Inj) 40 mg IVP DAILY [facility] Last Admin: 12/24/18 09:21 Dose: 40 mg - Labs Labs: 12/24/18 06:50 12/24/18 06:50 PT 13.6 SECONDS (9.4-12.5) H 12/22/18 18:21 INR 1.23 12/22/18 18:21 APTT 31.3 Seconds (26.9-38.3) 12/22/18 18:21 Attending/Attestation - Attestation I have personally seen and examined this patient.: Yes I have fully participated in the care of the patient.: Yes I have reviewed all pertinent clinical information, including history, physical exam and plan: Yes Notes (Text): 12/24/18 18:34 Attending note; Patient seen and examined with resident. Patient is alert and awake. Oriented to place. Otherwise not oriented to month and year. Not in any acute distress. Tolerating liquid diet. Denies any fevers, chills, nausea, vomiting. Had an episode of nonsustained V. tach last night. Asymptomatic. No treatment required . Patient is a 68 year old male with past medical history of CVA (with left sided residual weakness), HTN, HLD, CAD, Afib, seizure disorder admitted for workup and management of seizure vs CVA. 1. Altered mental status; CT head is negative. Still with memory problems. neurology evaluation appreciated. Possible postictal versus stroke. MRI ordered. 2. Atrial Fibrillation; continue Cardizem and metoprolol. Patient had an episode of nonsustained VT . Cardiology evaluation requested. Currently stable cardiac status. Continue aspirin and Eliquis. 3. Dysphagia ;swallow evaluation appreciated; continue liquid diet . Advance as tolerated. 4. Seizure disorder; continue Keppra . 5. GI prophylaxis with Protonix. Physical therapy evaluation appreciated. TCU recommended. We will follow-up with catalytic case operator for discharge planning.
--- NOTE | 2018-12-24 14:42 | CP.PCM.CON ---
History of Present Illness - History of Present Illness History of Present Illness: Awake, alert, confuse Reason for consultation: Cardiac evaluation of rapid ventricular rate atrial fibrillation Brief history of present illness: A 68 year old male who was brought to the ER due to episode of confusion, aphasia, staring, that gradually resolved. History of cerebrovascular accident with left sided residual weakness, hypertension, hyperlipidemia coronary artery disease post CABG, chronic atrial fibrillation, seizure disorder, descending aortic aneurysm with repair, Unable to provide information, patient confuse. Information retrieved from chart. Consult was called for rapid ventricular rate atrial fibrillation. Seen and examined by me and Dr. Samuels Review of Systems - Review of Systems All systems: reviewed and no additional remarkable complaints except Review of Systems: as per HPI Past Patient History - Past Social History Smoking Status: Never Smoked - CARDIAC Hx Cardiac Disorders: Yes Hx Hypertension: Yes - PULMONARY Hx Chronic Obstructive Pulmonary Disease (COPD): No - NEUROLOGICAL HX Cerebrovascular Accident: Yes (L sided weakness) - RENAL Hx Chronic Kidney Disease: No - ENDOCRINE/METABOLIC Hx Endocrine Disorders: No - HEMATOLOGICAL/ONCOLOGICAL Hx Anemia: No Hx Cancer: No - MUSCULOSKELETAL/RHEUMATOLOGICAL Hx Falls: No - GASTROINTESTINAL Hx Gastrointestinal Disorders: No - GENITOURINARY/GYNECOLOGICAL Hx Incontinence: Yes - PSYCHIATRIC Hx Depression: No Hx Emotional Abuse: No Hx Physical Abuse: No Hx Substance Use: No - SURGICAL HISTORY Hx Arteriovenous Shunt: Yes Hx Coronary Artery Bypass Graft: Yes - ANESTHESIA Hx Anesthesia: Yes Hx Anesthesia Reactions: No Hx Malignant Hyperthermia: No Meds Allergies/Adverse Reactions: Allergies Allergy/AdvReac Type Severity Reaction Status Date / Time No Known Allergies Allergy Verified 01/27/12 13:30 - Medications Medications: Current Medications Acetaminophen (Tylenol 325mg Tab) 650 mg PO Q6 PRN PRN Reason: Fever 101F & Above Apixaban (Eliquis) 5 mg PO BID [facility]; Protocol Last Admin: 12/24/18 09:22 Dose: 5 mg Aspirin (Ecotrin) 81 mg PO DAILY [facility] Last Admin: 12/24/18 09:21 Dose: 81 mg Atorvastatin Calcium (Lipitor) 80 mg PO DAILY [facility] Last Admin: 12/24/18 09:21 Dose: 80 mg Diltiazem HCl (Cardizem) 5 mg IVP Q6H PRN PRN Reason: Heart rate Last Admin: 12/24/18 02:28 Dose: 5 mg Diltiazem HCl (Cardizem Cd) 180 mg PO DAILY [facility] Last Admin: 12/24/18 09:22 Dose: 180 mg Levetiracetam 750 mg/ Sodium (Chloride) 107.5 mls @ 215 mls/hr IVPB Q12 [facility] Last Admin: 12/24/18 09:20 Dose: 215 mls/hr Lorazepam (Ativan) 2 mg IVP Q6H PRN; Protocol PRN Reason: Seizure activity Metoprolol Tartrate (Lopressor) 25 mg PO BID [facility] Last Admin: 12/24/18 09:21 Dose: 25 mg Pantoprazole Sodium (Protonix Inj) 40 mg IVP DAILY [facility] Last Admin: 12/24/18 09:21 Dose: 40 mg Physical Exam - Constitutional Appears: Non-toxic, No Acute Distress - Head Exam Head Exam: NORMAL INSPECTION, NORMOCEPHALIC - Eye Exam Eye Exam: Normal appearance Pupil Exam: NORMAL ACCOMODATION - ENT Exam ENT Exam: Mucous Membranes Moist - Respiratory Exam Respiratory Exam: Decreased Breath Sounds, NORMAL BREATHING PATTERN - Cardiovascular Exam Cardiovascular Exam: Irregular Rhythm, +S1, +S2 Additional comments: atrial fibrillation 110's - GI/Abdominal Exam GI & Abdominal Exam: Normal Bowel Sounds, Soft - Extremities Exam Additional comments: left sided weakness - Neurological Exam Neurological exam: Alert Additional comments: confuse - Skin Skin Exam: Dry, Normal Color, Warm Results - Vital Signs Recent Vital Signs: Last Vital Signs Temp 98.0 F 12/24/18 06:00 Pulse 128 H 12/24/18 10:00 Resp 18 12/24/18 06:00 BP 142/82 12/24/18 09:22 Pulse Ox 97 12/24/18 06:00 - Labs Result Diagrams: 12/24/18 06:50 12/24/18 06:50 Labs: Laboratory Results - last 24 hr 12/22/18 12/23/18 12/23/18 18:21 15:49 20:49 WBC RBC Hgb Hct MCV MCH MCHC RDW Plt Count MPV Sodium Potassium Chloride Carbon Dioxide Anion Gap BUN Creatinine Est GFR ( Amer) Est GFR (Non-Af Amer) POC Glucose (mg/dL) 100 110 Random Glucose Hemoglobin A1c 6.2 Calcium Magnesium Total Bilirubin AST ALT Alkaline Phosphatase Total Protein Albumin Globulin Albumin/Globulin Ratio Urine Opiates Screen Urine Methadone Screen Ur Barbiturates Screen Ur Phencyclidine Scrn Ur Amphetamines Screen U Benzodiazepines Scrn U Oth Cocaine Metabols U Cannabinoids Screen 12/24/18 12/24/18 12/24/18 00:45 06:30 06:50 WBC 6.4 RBC 4.55 Hgb 14.4 Hct 42.3 MCV 93.0 MCH 31.6 MCHC 34.0 RDW 13.3 Plt Count 194 MPV 9.6 Sodium 137 Potassium 4.0 Chloride 105 Carbon Dioxide 27 Anion Gap 9 L BUN 11 Creatinine 0.7 L Est GFR ( Amer) > 60 Est GFR (Non-Af Amer) > 60 POC Glucose (mg/dL) Random Glucose 89 Hemoglobin A1c Calcium 8.5 Magnesium 1.8 Total Bilirubin AST ALT Alkaline Phosphatase Total Protein Albumin Globulin Albumin/Globulin Ratio Urine Opiates Screen Negative Urine Methadone Screen Negative Ur Barbiturates Screen Negative Ur Phencyclidine Scrn Negative Ur Amphetamines Screen Negative U Benzodiazepines Scrn Negative U Oth Cocaine Metabols Negative U Cannabinoids Screen Negative 12/24/18 12/24/18 12/24/18 06:50 07:22 11:10 WBC RBC Hgb Hct MCV MCH MCHC RDW Plt Count MPV Sodium 138 Potassium 4.1 Chloride 105 Carbon Dioxide 27 Anion Gap 10 BUN 10 Creatinine 0.7 L Est GFR ( Amer) > 60 Est GFR (Non-Af Amer) > 60 POC Glucose (mg/dL) 98 127 H Random Glucose 91 Hemoglobin A1c Calcium 8.5 Magnesium 1.7 Total Bilirubin 1.5 H AST 20 ALT 11 Alkaline Phosphatase 97 Total Protein 6.7 Albumin 3.4 Globulin 3.3 Albumin/Globulin Ratio 1.0 L Urine Opiates Screen Urine Methadone Screen Ur Barbiturates Screen Ur Phencyclidine Scrn Ur Amphetamines Screen U Benzodiazepines Scrn U Oth Cocaine Metabols U Cannabinoids Screen Assessment & Plan - Assessment and Plan (Free Text) Assessment: A 68 year old male who was brought to the ER due to to episode of confusion, aphasia, staring, that gradually resolved. History of cerebrovascular accident with left sided residual weakness, hypertension, hyperlipidemia coronary artery disease post CABG, chronic atrial fibrillation, on Eliquis, seizure disorder, descending aortic aneurysm with repair, Unable to provide information, patient confuse. Information retrieved from chart. Consult was called for rapid ventricular rate atrial fibrillation. EKG showed atrial fibrillation 117/min. Echo done on 10/12/17 showed LVEF 55%, moderate aortic regurgitation,mild mitral and tricuspid regurgitation, RVSP 49 mmHg, mild pulmonary hypertension, no evidence of atrial spetal defect,mild to moderate enlarged aortic root, moderately dilated ascending aorta. Cardizem IV given. Started on oral cardizem. Continue Eliquis. Heart rate now controlled. Will order echo to evaluate LV function. Neuro on consult. Plan: No distress, confuse at times Heart rate atrial fibrillation Blood pressure stable Echo to evaluate LV function On Eliquis 5 mg BID,ASA 81 mg daily, Cardizem CD 180 mg daily, Keppra 750 mg BID, Lopressor 25 mg BID Continue current treatment Continue current medications Seizure precaution Neuro on consult Fall precaution Will follow up Plan and treatment discussed with Dr. Samuels Thank you Dr. Grant for the opportunity of taking care of No Morin - Date & Time Date: 12/24/18 Time: 14:00
[2018-12-24 23:23] VITALS: RESP 20
[2018-12-25] MEDS: Pantoprazole 40 mg EC Tab PO SCH (05:33)
[2018-12-25 07:03] LABS: HEMOGLOBIN 14.1 g/dL (14.0-18.0); MEAN CELL VOLUME 92.1 fl (80.0-105.0); MEAN CORPUSCULAR HEMOGLOBIN 31.1 pg (25.0-35.0); MEAN CORPUSCULAR HGB CONC 33.7 g/dl (31.0-37.0); MEAN PLATELET VOLUME 9.8 fl (7.0-11.0); RBC 4.54 10^6/uL (3.5-6.1); RED CELL DISTRIBUTION WIDTH 13.2 % (11.5-14.5); WHITE BLOOD COUNT 6.5 10^3/uL (4.5-11.0)
[2018-12-25 07:19] LABS: ALBUMIN 3.4 g/dL (3.0-4.8); ALT/SGPT 17 U/L (7-56); AST/SGOT 21 U/L (17-59); BLOOD UREA NITROGEN 13 mg/dL (7-21); CALCIUM 8.6 mg/dL (8.4-10.5); GFR NON-AFRICAN AMERICAN > 60
--- NOTE | 2018-12-25 09:59 | MRI ---
Date of service: 12/24/2018 PROCEDURE: MRI BRAIN WITHOUT CONTRAST HISTORY: r/o acute CVA COMPARISON: None available. TECHNIQUE: Multiplanar, multisequence MR images of the brain were obtained without intravenous contrast enhancement. FINDINGS: HEMORRHAGE: None DWI: No evidence of an acute or early subacute infarction. BRAIN PARENCHYMA: No mass effect or edema. There is a large area of cystic encephalomalacia in the right hemisphere. There is also hemosiderin deposition within this area consistent with a previous hemorrhagic infarct. There is also a focal area of hemosiderin deposition in the left posterior temporal lobe with focal atrophy. There are no acute intracranial findings VENTRICLES: Unremarkable. No hydrocephalus. CRANIUM: Unremarkable. ORBITS: Grossly unremarkable. PARANASAL SINUSES/MASTOIDS: Clear VASCULAR SYSTEM: Skull base flow voids intact. OTHER FINDINGS: None. IMPRESSION: No acute intracranial findings.
[2018-12-25] MEDS: diltiaZEM 180 mg/24 Hours CD Cap PO SCH (10:27)
--- NOTE | 2018-12-25 16:06 | CARD ---
APPROVED REPORT Date of service: 12/25/2018 EXAM: Two-dimensional and M-mode echocardiogram with Doppler and color Doppler. INDICATION EVALUATE LVFX 2D DIMENSIONS Left Atrium (2D)5.2 (1.6-4.0cm)IVSd0.9 (0.7-1.1cm) LVDd5.7 (3.9-5.9cm)PWd1.4 (0.7-1.1cm) LVDs4.2 (2.5-4.0cm)FS (%) 25.9 % LVEF (%)50.3 (>50%) M-Mode DIMENSIONS Aortic Root5.30 (2.2-3.7cm)Aortic Cusp Exc.2.70 (1.5-2.0cm) Aortic Valve AoV Peak Uuexnmqn119.0cm/Evette Peak GR.8mmHgAI P 1/2 [id number] Mitral Valve E/A ratio0.0 TDI E/Lateral E'0.0E/Medial E'0.0 Pulmonary Valve PV Peak Njxjtfbn63.7cm/sPV Peak Grad.2mmHg Tricuspid Valve TR Peak [id number]/sRAP [id number] Peak Gr.34mmHg [id number] LEFT VENTRICLE The Left Ventricle is borderline dilated. There is borderline concentric left ventricular hypertrophy. Proximal septal thickening is noted. Left ventricle systolic function is low normal.EF-50% There is normal LV segmental wall motion. A fib No left ventricle thrombus noted on this study. There is no ventricular septal defect visualized. There is no left ventricular aneurysm. There is no mass noted in the left ventricle. RIGHT VENTRICLE The right ventricle is normal size. There is normal right ventricular wall thickness. The right ventricular systolic function is normal. ATRIA The left atrium is moderately dilated. The right atrium is mildly dilated. The interatrial septum is intact with no evidence for an atrial septal defect. AORTIC VALVE The aortic valve is thickened but opens well. There is moderate to severe aortic regurgitation. There is no aortic valvular stenosis. There is no aortic valvular vegetation. MITRAL VALVE The mitral valve is thickened but opens well. Mitral regurgitation is mild. There is no mitral valve stenosis. There is no evidence of mitral valve prolapse. TRICUSPID VALVE The tricuspid valve leaflets are thickened , but open well. There is mild tricuspid regurgitation.RVSP-44 mmof hg. There is no tricuspid valve stenosis. There is no tricuspid valve prolapse or vegetation. PULMONIC VALVE The pulmonary valve is normal in structure. There is no pulmonic valvular regurgitation. There is no pulmonic valvular stenosis. GREAT VESSELS The aortic root is mildly to moderately enlarged. The ascending aorta is Moderately dilated. The pulmonary artery is normal. The IVC is normal in size and collapses >50% with inspiration. PERICARDIAL EFFUSION There is no pleural effusion. There is no pericardial effusion. <Conclusion> The Left Ventricle is borderline dilated. There is borderline concentric left ventricular hypertrophy. Proximal septal thickening is noted. Left ventricle systolic function is low normal.EF-50% There is moderate to severe aortic regurgitation. Mitral regurgitation is mild. There is mild tricuspid regurgitation.RVSP-44 mmof hg. The aortic root is mildly to moderately enlarged. The ascending aorta is Moderately dilated. There is no pericardial effusion. F/u Echo in one year or Serial CT Angio to monitor ASc aorticaneurysm is recommended. when compare from previous echo dt.09/21/17,No significant Change except A R may be getting worse.
--- NOTE | 2018-12-25 17:14 | CP.PCM.DIS ---
Provider - Provider Date of Admission: 12/22/18 20:19 Attending physician: Tee Grant MD Primary care physician: NO PRIMARY CARE PROVIDER Consults: 12/22/18 17:47 Stroke Team Consult Stat Comment: Consulting Provider: Neurohospitalist Consulting Physician: NEUROHOSP Neurohospitalist for Consult: Nehemiah Lozoya Neurohospitalist for Consult: Melissa Garcia Reason for Consult: code stroke 12/23/18 04:34 Social Work Referral Routine Comment: admission assessment Physician Instructions: Reason For Exam: doug score 16 12/24/18 07:59 Cardiology Consult Routine Comment: Consulting Provider: Marisol Samuels Consulting Physician: Marisol Samuels Reason for Consult: vtach, afib 12/24/18 08:06 Odd Job Worker [Case Management Referral] Routine Comment: Physician Instructions: Reason For Exam: Reason for Referral: Odd Job Worker Eval 12/24/18 18:37 TCU [Evaluation for TRCU] Routine Comment: Physician Instructions: Reason For Exam: gait instability Hospital Course - Lab Results Lab Results: Most Recent Lab Values WBC 6.5 10^3/uL (4.5-11.0) 12/25/18 06:30 RBC 4.54 10^6/uL (3.5-6.1) 12/25/18 06:30 Hgb 14.1 g/dL (14.0-18.0) 12/25/18 06:30 Hct 41.8 % (42.0-52.0) L 12/25/18 06:30 MCV 92.1 fl (80.0-105.0) 12/25/18 06:30 MCH 31.1 pg (25.0-35.0) 12/25/18 06:30 MCHC 33.7 g/dl (31.0-37.0) 12/25/18 06:30 RDW 13.2 % (11.5-14.5) 12/25/18 06:30 Plt Count 198 10^3/uL (120.0-450.0) 12/25/18 06:30 MPV 9.8 fl (7.0-11.0) 12/25/18 06:30 Neut % (Auto) 61.7 % (50.0-68.0) 12/22/18 18:21 Lymph % (Auto) 28.5 % (22.0-35.0) 12/22/18 18:21 [place] % (Auto) 8.5 % (1.0-6.0) H 12/22/18 18:21 Eos % (Auto) 1.1 % (1.5-5.0) L 12/22/18 18:21 Baso % (Auto) 0.2 % (0.0-3.0) 12/22/18 18:21 Lymph # (Auto) 2.7 (1.2-3.4) 12/22/18 18:21 [place] # (Auto) 0.8 (0.1-0.6) H 12/22/18 18:21 Eos # (Auto) 0.1 (0.0-0.7) 12/22/18 18:21 Baso # (Auto) 0.02 K/mm3 (0.0-2.0) 12/22/18 18:21 Absolute Neuts (auto) 5.88 (1.4-6.5) 12/22/18 18:21 PT 13.6 SECONDS (9.4-12.5) H 12/22/18 18:21 INR 1.23 12/22/18 18:21 APTT 31.3 Seconds (26.9-38.3) 12/22/18 18:21 Sodium 138 mmol/L (132-148) 12/25/18 06:30 Potassium 3.8 mmol/L (3.6-5.0) 12/25/18 06:30 Chloride 105 mmol/L (98-107) 12/25/18 06:30 Carbon Dioxide 27 mmol/L (21-33) 12/25/18 06:30 Anion Gap 10 (10-20) 12/25/18 06:30 BUN 13 mg/dL (7-21) 12/25/18 06:30 Creatinine 0.6 mg/dl (0.8-1.5) L 12/25/18 06:30 Est GFR ( Amer) > 60 12/25/18 06:30 Est GFR (Non-Af Amer) > 60 12/25/18 06:30 POC Glucose (mg/dL) 131 mg/dL (65-110) H 12/25/18 11:04 Random Glucose 93 mg/dL (70-110) 12/25/18 06:30 Hemoglobin A1c 6.2 % (4.2-6.5) 12/22/18 18:21 Calcium 8.6 mg/dL (8.4-10.5) 12/25/18 06:30 Magnesium 1.7 mg/dL (1.7-2.2) 12/25/18 06:30 Total Bilirubin 1.1 mg/dL (0.2-1.3) 12/25/18 06:30 AST 21 U/L (17-59) 12/25/18 06:30 ALT 17 U/L (7-56) 12/25/18 06:30 Alkaline Phosphatase 87 U/L (38-126) 12/25/18 06:30 Troponin I < 0.01 ng/mL 12/22/18 18:21 Total Protein 6.6 g/dL (5.8-8.3) 12/25/18 06:30 Albumin 3.4 g/dL (3.0-4.8) 12/25/18 06:30 Globulin 3.2 gm/dL 12/25/18 06:30 Albumin/Globulin Ratio 1.0 (1.1-1.8) L 12/25/18 06:30 Triglycerides 122 mg/dL (35-160) 12/22/18 18:21 Cholesterol 227 mg/dL (130-200) H 12/22/18 18:21 LDL Cholesterol Direct 147 mg/dL (0-129) H 12/22/18 18:21 HDL Cholesterol 46 mg/dL (29-60) 12/22/18 18:21 TSH 3rd Generation 2.33 mIU/mL (0.46-4.68) 12/23/18 06:30 Urine Color Light yellow (YELLOW) 12/22/18 20:10 Urine Appearance Clear (CLEAR) 12/22/18 20:10 Urine pH 7.0 (4.7-8.0) 12/22/18 20:10 Ur Specific [place] 1.015 (1.005-1.035) 12/22/18 20:10 Urine Protein Trace mg/dL (<30 mg/dL) H 12/22/18 20:10 Urine Glucose (UA) Negative mg/dL (NEGATIVE) 12/22/18 20:10 Urine Ketones Negative mg/dL (NEGATIVE) 12/22/18 20:10 Urine Blood Negative (NEGATIVE) 12/22/18 20:10 Urine Nitrate Negative (NEGATIVE) 12/22/18 20:10 Urine Bilirubin Negative (NEGATIVE) 12/22/18 20:10 Urine Urobilinogen 0.2 E.U./dL (<1 E.U./dL) 12/22/18 20:10 Ur Leukocyte Esterase Negative [place]/uL (NEGATIVE) 12/22/18 20:10 Urine RBC 0 - 2 /hpf (0-2) 12/22/18 20:10 Urine WBC None /hpf (0-6) 12/22/18 20:10 Ur Epithelial Cells None /hpf (0-5) 12/22/18 20:10 Urine Opiates Screen Negative (NEGATIVE) 12/24/18 06:30 Urine Methadone Screen Negative (NEGATIVE) 12/24/18 06:30 Ur Barbiturates Screen Negative (NEGATIVE) 12/24/18 06:30 Ur Phencyclidine Scrn Negative (NEGATIVE) 12/24/18 06:30 Ur Amphetamines Screen Negative (NEGATIVE) 12/24/18 06:30 U Benzodiazepines Scrn Negative (NEGATIVE) 12/24/18 06:30 U Oth Cocaine Metabols Negative (NEGATIVE) 12/24/18 06:30 U Cannabinoids Screen Negative (NEGATIVE) 12/24/18 06:30 Blood Type O POSITIVE 12/22/18 18:33 Antibody Screen Negative 12/22/18 18:33 BBK History Checked Patient has bt 12/22/18 18:33 Discharge Exam - Head Exam Head Exam: ATRAUMATIC, NORMAL INSPECTION, NORMOCEPHALIC Discharge Plan - Discharge Medications Prescriptions: Apixaban [Eliquis] 5 mg PO BID #60 tab diltiaZEM CD [Cardizem CD] 180 mg PO DAILY #30 cap Levetiracetam [Keppra] 750 mg PO BID #60 tablet Metoprolol Tartrate [Lopressor] 25 mg PO BID #60 tab - Follow Up Plan Condition: SERIOUS Disposition: HOME/ ROUTINE Additional Instructions: -Please follow up with Dr. Swift at the [facility] located in the [facility]. You are scheduled to see her on Tuesday12/29/18 at 3pm. Please show up atleast 30 minutes prior to your appointment. -Please follow up with neurologist Dr Lozoya within one week of discharge. -Please follow up with excel specialist Dr Allen, within one week of discharge -Please take your home medications as prescribed including Aspirin 81mg -Please stop your home enalapril and diltiazem (cardizem). -Please take the newly prescribed medications, 2 medications have been sent to your pharmacy. You are receiving prescriptions for the other 2 medications. -Please return to the emergency room if symptoms return or you experience new concerning symptoms. Referrals: Marisol Allen MD [Staff Provider] - Nehemiah Lozoya MD [Staff Provider] - Cyn Swift MD [Medical Doctor] -
--- NOTE | 2018-12-25 18:23 | PN ---
DATE: 12/25/2018 REASON FOR CONSULTATION AND FOLLOWUP: Cardiac evaluation, history of AFib, admitted with AFib, rapid rate. The patient denies any chest pain, shortness of breath or any palpitations. PHYSICAL EXAMINATION: GENERAL: Not in apparent distress. VITAL SIGNS: Temperature afebrile, heart rate 89, blood pressure 133/80. HEENT: PERRLA. Extraocular muscles intact. NECK: Supple. No carotid bruits. No thyromegaly. CHEST: Clear to auscultation. HEART: S1, S2. Regular. ABDOMEN: Soft. EXTREMITIES: Clubbing and cyanosis negative. LABORATORY DATA: Blood workup as follows. WBC 6.5, hemoglobin 14.2, hematocrit 41.8, and platelet count 198. Chemistry shows sodium 130, potassium 3.8, chloride 105, CO2 of 27, anion gap 10, BUN 13, creatinine 0.6. ASSESSMENT: A 68-year-old male brought in after he had a phase of confusion, transient ischemic attack starting, gradually resolved, history of coronary artery disease, coronary artery bypass graft, chronic atrial fibrillation, seizure disorder, hypertension, hyperlipidemia. Last echo dated 10/12/2017 ejection fraction 55%, moderate aortic regurgitation, mild mitral and tricuspid regurgitation, RV systolic pressure 45, mild pulmonary hypertension, [id number] aortic root enlargement, dilated ascending aorta in the past. RECOMMENDATIONS: Continue Eliquis 5 mg b.i.d. Plan is to repeat the echo and further recommendations after the echo, but interim continue Eliquis, continue aggressive control of blood pressure and if it remains stable, possible discharge within a day or two. We will follow. Thank you for providing us the opportunity in taking care of the patient No Morin. Marisol Allen MD
--- NOTE | 2018-12-25 19:44 | CP.PCM.PN ---
<Crhistopher Jordan - Last Filed: 12/25/18 19:41> Subjective - Date & Time of Evaluation Date of Evaluation: 12/25/18 Time of Evaluation: 08:45 - Subjective Subjective: Christopher Jordan DO PGY-[address] Carrillo Patient seen and examined at bedside. He reports no complaints and no acute events overnight. He is oriented to place and person (his baseline) Objective - Vital Signs/Intake and Output Vital Signs (last 24 hours): Temp Pulse Resp BP Pulse Ox 97.6 F 57 L 20 152/70 H 95 12/25/18 17:14 12/25/18 18:00 12/25/18 17:14 12/25/18 17:32 12/25/18 05:18 Intake and Output: 12/25/18 12/26/18 18:59 06:59 Intake Total 1080 Output Total 700 Balance 380 - Medications Medications: Current Medications Acetaminophen (Tylenol 325mg Tab) 650 mg PO Q6 PRN PRN Reason: Fever 101F & Above Apixaban (Eliquis) 5 mg PO BID [facility]; Protocol Last Admin: 12/25/18 17:32 Dose: 5 mg Aspirin (Ecotrin) 81 mg PO DAILY [facility] Last Admin: 12/25/18 10:27 Dose: 81 mg Atorvastatin Calcium (Lipitor) 80 mg PO DAILY [facility] Last Admin: 12/25/18 10:26 Dose: 80 mg Diltiazem HCl (Cardizem) 5 mg IVP Q6H PRN PRN Reason: Heart rate Last Admin: 12/24/18 02:28 Dose: 5 mg Diltiazem HCl (Cardizem Cd) 180 mg PO DAILY JONY Last Admin: 12/25/18 10:27 Dose: 180 mg Levetiracetam 750 mg/ Sodium (Chloride) 107.5 mls @ 215 mls/hr IVPB Q12 JONY Last Admin: 12/25/18 10:27 Dose: 215 mls/hr Lorazepam (Ativan) 2 mg IVP Q6H PRN; Protocol PRN Reason: Seizure activity Metoprolol Tartrate (Lopressor) 25 mg PO BID [facility] Last Admin: 12/25/18 17:32 Dose: 25 mg Pantoprazole Sodium (Protonix Ec Tab) 40 mg PO 0600 JONY Last Admin: 12/25/18 05:33 Dose: 40 mg - Labs Labs: 12/25/18 06:30 12/25/18 06:30 PT 13.6 SECONDS (9.4-12.5) H 12/22/18 18:21 INR 1.23 12/22/18 18:21 APTT 31.3 Seconds (26.9-38.3) 12/22/18 18:21 - Additional Findings Additional findings: - Constitutional Appears: Confused, Non-toxic - Head Exam Head Exam: ATRAUMATIC, NORMOCEPHALIC - Eye Exam Eye Exam: EOMI, Normal appearance - ENT Exam ENT Exam: Mucous Membranes Moist, Normal Exam - Respiratory Exam Respiratory Exam: Clear to Auscultation Bilateral, NORMAL BREATHING PATTERN. absent: Rales, Rhonchi, Wheezes - Cardiovascular Exam Cardiovascular Exam: REGULAR RHYTHM, +S1, +S2, Tachycardia - GI/Abdominal Exam GI & Abdominal Exam: Normal Bowel Sounds, Soft. absent: Guarding, Mass, Rigid, Tenderness - Extremities Exam Extremities exam: Positive for: normal capillary refill, normal inspection, pedal pulses present - Neurological Exam Neurological exam: Altered, Alert, Oriented x1, CN II-XII Intact Additional comments: Left Upper Extremity: 4, Right Upper Extremity: 5, Left Lower Extremity: 4, Right Lower Extremity: 5 Intact sensation throughout - Skin Skin Exam: Dry, Intact, Normal Color, Warm Assessment and Plan - Assessment and Plan (Free Text) Assessment: Patient is a 68 year old male with past medical history of CVA (with left sided residual weakness), HTN, HLD, CAD, Afib, seizure disorder admitted for workup and management of seizure vs CVA Plan: AMS - CT head shows old infarct, no ICH or acute pathology - tPA not administered - lipid profile: high LDL, total chol - continue aspirin - continue Keppra 750 - seizure/fall/aspiration precautions, neurochecks - elevate head of bed - PT eval: home discharge with services recommended - UA, UDS, TSH unremarkable - Neurology following, Dr Lozoya - MRI brain: no acute pathology Atrial fibrillation - home eliquis and cardizem resumed - ECHO negative for PFO - episodes of nonsustained VT HTN - home metoprolol resumed CAD s/p CABG - home Lipitor PPX DVT: SCD, lovenox GI: protonix It was hard to reach out to patient son for discharge today. Multiple phone calls placed but failed to reach him. Possible discharge tomorrow. Will try to reach out to the son again. Case reviewed and paln discussed with Dr. Gerardo Jordan, PGY-1 <Judit Carrillo R - Last Filed: 12/26/18 07:05> Objective - Vital Signs/Intake and Output Vital Signs (last 24 hours): Temp Pulse Resp BP Pulse Ox 97.4 F L 70 20 139/85 96 12/26/18 00:01 12/26/18 02:00 12/26/18 00:01 12/26/18 00:01 12/26/18 00:01 Intake and Output: 12/26/18 12/26/18 06:59 18:59 Intake Total 240 Output Total 820 Balance -580 - Medications Medications: Current Medications Acetaminophen (Tylenol 325mg Tab) 650 mg PO Q6 PRN PRN Reason: Fever 101F & Above Apixaban (Eliquis) 5 mg PO BID [facility]; Protocol Last Admin: 12/25/18 17:32 Dose: 5 mg Aspirin (Ecotrin) 81 mg PO DAILY [facility] Last Admin: 12/25/18 10:27 Dose: 81 mg Atorvastatin Calcium (Lipitor) 80 mg PO DAILY [facility] Last Admin: 12/25/18 10:26 Dose: 80 mg Diltiazem HCl (Cardizem) 5 mg IVP Q6H PRN PRN Reason: Heart rate Last Admin: 12/24/18 02:28 Dose: 5 mg Diltiazem HCl (Cardizem Cd) 180 mg PO DAILY JONY Last Admin: 12/25/18 10:27 Dose: 180 mg Levetiracetam 750 mg/ Sodium (Chloride) 107.5 mls @ 215 mls/hr IVPB Q12 JONY Last Admin: 12/25/18 22:43 Dose: 215 mls/hr Lorazepam (Ativan) 2 mg IVP Q6H PRN; Protocol PRN Reason: Seizure activity Metoprolol Tartrate (Lopressor) 25 mg PO BID [facility] Last Admin: 12/25/18 17:32 Dose: 25 mg Pantoprazole Sodium (Protonix Ec Tab) 40 mg PO 0600 JONY Last Admin: 12/26/18 05:09 Dose: 40 mg - Labs Labs: 12/25/18 06:30 12/25/18 06:30 PT 13.6 SECONDS (9.4-12.5) H 12/22/18 18:21 INR 1.23 12/22/18 18:21 APTT 31.3 Seconds (26.9-38.3) 12/22/18 18:21 Attending/Attestation - Attestation I have personally seen and examined this patient.: Yes I have fully participated in the care of the patient.: Yes I have reviewed all pertinent clinical information, including history, physical exam and plan: Yes Notes (Text): Patient seen and examined by me with resident at approximately 10:35AM on 12/25/18. Case including HPI, physical exam, and assessment and plan discussed with resident. Agree with above with following additions/corrections. Patient is a 68-year-old male with past medical history significant for CVA with left-sided residual weakness, hypertension, hyperlipidemia, coronary artery disease, atrial fibrillation, and seizure disorder that presented to the emergency room for altered mental status. Patient states he is feeling pretty good and feels ready to go home. Patient with intermittent confusion. Patient denies chest pain or shortness of breath. No headaches or dizziness. No fevers or chills. No nausea, vomiting, or abdominal pain. No dysuria. Physical exam: General: Awake and alert sitting up in chair in no acute distress HEENT: Normocephalic, atraumatic. Extraocular muscles intact. Pupils equal and reactive, no scleral icterus. Oropharynx is pink and moist. No pharyngeal erythema or exudate appreciated. Neck is supple. Cardiovascular: Irregularly irregular rhythm. No murmurs, rubs, or gallops appreciated Pulmonary: Normal respiratory effort. No rhonchi, rales, or wheezing appreciated Gastrointestinal: Soft, nondistended. Nontender. Positive bowel sounds all 4 quadrants. No guarding. Musculoskeletal: Moves all extremities. No calf tenderness. No edema appreciated. Central nervous system: Awake and alert. Positive left facial droop (from previous stroke). Positive left sided weakness when compared to right (from previous stroke) Dermatologic: Skin warm and dry. Assessment and plan: Patient is a 68-year-old male with past medical history significant for CVA with left-sided residual weakness, hypertension, h yperlipidemia, coronary artery disease, atrial fibrillation, and seizure disorder that presented to the emergency room for altered mental status. 1. Altered mental status. Confusion. Neurology recommendations appreciated. Likely secondary to post ictal state. Keppra dose was increased. Head CT per r adiologist showed no acute intracranial abnormalities, stable right MCA CVA, cortical and cerebellar atrophy, periventricular small vessel disease. MRI per radiologist showed no acute intracranial findings. 2. Atrial fibrillation with RVR. Now are rate controlled. Cardiology recommendations appreciated. Continue Cardizem, metoprolol, Eliquis, and ASA. 2- D echo per dynamometer tester engine showed left ventricle is borderline dilated, borderline concentric left ventricular hypertrophy, proximal septal thickening is noted, left ventricular systolic function is low normal, EF 50%, moderate to severe aortic regurgitation, mitral regurgitation is mild, ascending aorta is moderately dilated, there is no pericardial effusion, follow-up echo in [address] angio to monitor aortic aneurysm. 3. Dysphagia. Speech and swallow following. Continue aspiration precautions. Continue with heart healthy diet. 4. Seizure disorder. Neurology recommendations appreciated. Continue Keppra. 5. History of CVA with left sided residual weakness. Continue ASA and Lipitor. Continue PT. 6. Hypertension. Continue Cardizem and Lopressor. 7. CAD s/p CABG. Continue Lopressor, Lipitor, and aspirin. 2-D echo results as above. No current issues. Cardiology recommendations appreciated. 8. Aortic aneursym. Patient will need outpatient monitoring with serial CT angio or repeat echo in one year. 9. GI/DVT prophylaxis. Protonix/Eliquis Case was discussed in detail with the patient regarding current diagnosis, study results, and treatment plan. All questions answered.
[2018-12-26 00:40] VITALS: BP 139/85; PULSE 70; TEMP 97.4; O2SAT 96
[2018-12-26] MEDS: Pantoprazole 40 mg EC Tab PO SCH (05:09)
[2018-12-26] MEDS: diltiaZEM 180 mg/24 Hours CD Cap PO SCH (10:13)
--- NOTE | 2018-12-26 13:57 | CP.PCM.DIS ---
Provider - Provider Date of Admission: 12/22/18 20:19 Attending physician: Tee Grant MD Primary care physician: NO PRIMARY CARE PROVIDER Consults: 12/22/18 17:47 Stroke Team Consult Stat Comment: Consulting Provider: Neurohospitalist Consulting Physician: NEUROHOSP Neurohospitalist for Consult: Nehemiah Lozoya Neurohospitalist for Consult: Melissa Garcia Reason for Consult: code stroke 12/23/18 04:34 Social Work Referral Routine Comment: admission assessment Physician Instructions: Reason For Exam: doug score 16 12/24/18 07:59 Cardiology Consult Routine Comment: Consulting Provider: Marisol Samuels Consulting Physician: Marisol Samuels Reason for Consult: vtach, afib 12/24/18 08:06 Code Clerk [Case Management Referral] Routine Comment: Physician Instructions: Reason For Exam: Reason for Referral: Code Clerk Eval 12/24/18 18:37 TCU [Evaluation for TRCU] Routine Comment: Physician Instructions: Reason For Exam: gait instability Time Spent in preparation of Discharge (in minutes): 35 Hospital Course - Lab Results Lab Results: Most Recent Lab Values WBC 6.5 10^3/uL (4.5-11.0) 12/25/18 06:30 RBC 4.54 10^6/uL (3.5-6.1) 12/25/18 06:30 Hgb 14.1 g/dL (14.0-18.0) 12/25/18 06:30 Hct 41.8 % (42.0-52.0) L 12/25/18 06:30 MCV 92.1 fl (80.0-105.0) 12/25/18 06:30 MCH 31.1 pg (25.0-35.0) 12/25/18 06:30 MCHC 33.7 g/dl (31.0-37.0) 12/25/18 06:30 RDW 13.2 % (11.5-14.5) 12/25/18 06:30 Plt Count 198 10^3/uL (120.0-450.0) 12/25/18 06:30 MPV 9.8 fl (7.0-11.0) 12/25/18 06:30 Neut % (Auto) 61.7 % (50.0-68.0) 12/22/18 18:21 Lymph % (Auto) 28.5 % (22.0-35.0) 12/22/18 18:21 [place] % (Auto) 8.5 % (1.0-6.0) H 12/22/18 18:21 Eos % (Auto) 1.1 % (1.5-5.0) L 12/22/18 18:21 Baso % (Auto) 0.2 % (0.0-3.0) 12/22/18 18:21 Lymph # (Auto) 2.7 (1.2-3.4) 12/22/18 18:21 [place] # (Auto) 0.8 (0.1-0.6) H 12/22/18 18:21 Eos # (Auto) 0.1 (0.0-0.7) 12/22/18 18:21 Baso # (Auto) 0.02 K/mm3 (0.0-2.0) 12/22/18 18:21 Absolute Neuts (auto) 5.88 (1.4-6.5) 12/22/18 18:21 PT 13.6 SECONDS (9.4-12.5) H 12/22/18 18:21 INR 1.23 12/22/18 18:21 APTT 31.3 Seconds (26.9-38.3) 12/22/18 18:21 Sodium 138 mmol/L (132-148) 12/25/18 06:30 Potassium 3.8 mmol/L (3.6-5.0) 12/25/18 06:30 Chloride 105 mmol/L (98-107) 12/25/18 06:30 Carbon Dioxide 27 mmol/L (21-33) 12/25/18 06:30 Anion Gap 10 (10-20) 12/25/18 06:30 BUN 13 mg/dL (7-21) 12/25/18 06:30 Creatinine 0.6 mg/dl (0.8-1.5) L 12/25/18 06:30 Est GFR ( Amer) > 60 12/25/18 06:30 Est GFR (Non-Af Amer) > 60 12/25/18 06:30 POC Glucose (mg/dL) 106 mg/dL (65-110) 12/26/18 07:19 Random Glucose 93 mg/dL (70-110) 12/25/18 06:30 Hemoglobin A1c 6.2 % (4.2-6.5) 12/22/18 18:21 Calcium 8.6 mg/dL (8.4-10.5) 12/25/18 06:30 Magnesium 1.7 mg/dL (1.7-2.2) 12/25/18 06:30 Total Bilirubin 1.1 mg/dL (0.2-1.3) 12/25/18 06:30 AST 21 U/L (17-59) 12/25/18 06:30 ALT 17 U/L (7-56) 12/25/18 06:30 Alkaline Phosphatase 87 U/L (38-126) 12/25/18 06:30 Troponin I < 0.01 ng/mL 12/22/18 18:21 Total Protein 6.6 g/dL (5.8-8.3) 12/25/18 06:30 Albumin 3.4 g/dL (3.0-4.8) 12/25/18 06:30 Globulin 3.2 gm/dL 12/25/18 06:30 Albumin/Globulin Ratio 1.0 (1.1-1.8) L 12/25/18 06:30 Triglycerides 122 mg/dL (35-160) 12/22/18 18:21 Cholesterol 227 mg/dL (130-200) H 12/22/18 18:21 LDL Cholesterol Direct 147 mg/dL (0-129) H 12/22/18 18:21 HDL Cholesterol 46 mg/dL (29-60) 12/22/18 18:21 TSH 3rd Generation 2.33 mIU/mL (0.46-4.68) 12/23/18 06:30 Urine Color Light yellow (YELLOW) 12/22/18 20:10 Urine Appearance Clear (CLEAR) 12/22/18 20:10 Urine pH 7.0 (4.7-8.0) 12/22/18 20:10 Ur Specific Evans 1.015 (1.005-1.035) 12/22/18 20:10 Urine Protein Trace mg/dL (<30 mg/dL) H 12/22/18 20:10 Urine Glucose (UA) Negative mg/dL (NEGATIVE) 12/22/18 20:10 Urine Ketones Negative mg/dL (NEGATIVE) 12/22/18 20:10 Urine Blood Negative (NEGATIVE) 12/22/18 20:10 Urine Nitrate Negative (NEGATIVE) 12/22/18 20:10 Urine Bilirubin Negative (NEGATIVE) 12/22/18 20:10 Urine Urobilinogen 0.2 E.U./dL (<1 E.U./dL) 12/22/18 20:10 Ur Leukocyte Esterase Negative [place]/uL (NEGATIVE) 12/22/18 20:10 Urine RBC 0 - 2 /hpf (0-2) 12/22/18 20:10 Urine WBC None /hpf (0-6) 12/22/18 20:10 Ur Epithelial Cells None /hpf (0-5) 12/22/18 20:10 Urine Opiates Screen Negative (NEGATIVE) 12/24/18 06:30 Urine Methadone Screen Negative (NEGATIVE) 12/24/18 06:30 Ur Barbiturates Screen Negative (NEGATIVE) 12/24/18 06:30 Ur Phencyclidine Scrn Negative (NEGATIVE) 12/24/18 06:30 Ur Amphetamines Screen Negative (NEGATIVE) 12/24/18 06:30 U Benzodiazepines Scrn Negative (NEGATIVE) 12/24/18 06:30 U Oth Cocaine Metabols Negative (NEGATIVE) 12/24/18 06:30 U Cannabinoids Screen Negative (NEGATIVE) 12/24/18 06:30 Blood Type O POSITIVE 12/22/18 18:33 Antibody Screen Negative 12/22/18 18:33 BBK History Checked Patient has bt 12/22/18 18:33 - Hospital Course Hospital Course: 0n admission: 68 y/o male with PMH of CVA (with left sided residual weakness), HTN, HLD, CAD, Afib, seizure disorder BIBEMS for AMS. Patient was noted by his caregiver to be confused and not himself. Caregiver denies associated trauma, fall, LOC, seizure activity, tongue biting, fecal/urine incontinence, N/V, fever, chills, neck stiffness or recent sickness. Patient is a poor historian and still confused at time of the exam (his baseline). Son at bedside but was away during the episode, he does not know much about the patient. Hospital course: Patient was seen by neurology, CT head: old infarct. no ICH or acute pathology. Symptoms improved, did not receive tPA. Asprin 325 stat, then daily, keppra 750 mg bid. seizure/fall/aspiration precautions. PT/INR wnl. Patient has Afib, home eliquis held, started levonox 100 q12, cardizem 5mg IVP prn. Echo shows EF 50%, moderate to severe aortic rugurgitation with RVSP 44 mmHg. MRI brain did not show any acute intracranial fininding. PT evaluated the patient and recommended home discharged with services. Patient's symptoms improved. He was hemodynamically stable, clinically optimized for discharge home today with his son. Additional instructions given upon discharge. Discharge Exam - Head Exam Head Exam: ATRAUMATIC, NORMAL INSPECTION, NORMOCEPHALIC - Additional Findings Additional findings: - Constitutional Appears: Confused, Non-toxic - Head Exam Head Exam: ATRAUMATIC, NORMOCEPHALIC - Eye Exam Eye Exam: EOMI, Normal appearance - ENT Exam ENT Exam: Mucous Membranes Moist, Normal Exam - Respiratory Exam Respiratory Exam: Clear to Auscultation Bilateral, NORMAL BREATHING PATTERN. absent: Rales, Rhonchi, Wheezes - Cardiovascular Exam Cardiovascular Exam: REGULAR RHYTHM, +S1, +S2, Tachycardia - GI/Abdominal Exam GI & Abdominal Exam: Normal Bowel Sounds, Soft. absent: Guarding, Mass, Rigid, Tenderness - Extremities Exam Extremities exam: Positive for: normal capillary refill, normal inspection, pedal pulses present - Neurological Exam Neurological exam: Altered, Alert, Oriented x1, CN II-XII Intact Additional comments: Left Upper Extremity: 3, Right Upper Extremity: 5, Left Lower Extremity: 3, Right Lower Extremity: 5 Intact sensation throughout - Skin Skin Exam: Dry, Intact, Normal Color, Warm Discharge Plan - Discharge Medications Prescriptions: Apixaban [Eliquis] 5 mg PO BID #60 tab Atorvastatin [Lipitor] 80 mg PO HS #30 tab [id number] CD [Cardizem CD] 180 mg PO DAILY #30 cap Levetiracetam [Keppra] 750 mg PO BID #60 tablet Metoprolol Tartrate [Lopressor] 25 mg PO BID #60 tab - Follow Up Plan Condition: GOOD Disposition: HOME/ ROUTINE Patient education suggested?: Yes Additional Instructions: -Please follow up with Dr. Swift at the [facility] located in the [facility]. You are scheduled to see her on Tuesday12/29/18 at 3pm. Please show up atleast 30 minutes prior to your appointment. -Please follow up with neurologist Dr Lozoya within one week of discharge. -Please follow up with solar fabrication technician Dr Allen, within one week of discharge -Please take your home medications as prescribed including Aspirin 81mg -Please monitor your aortic aneurysm with your primary care doctor. -Please stop your home enalapril and diltiazem (cardizem). -Please take the newly prescribed medications, 2 medications have been sent to your pharmacy. You are receiving prescriptions for the other 2 medications. -You are started on a blood thinner Elliquis. Please avoid taking any other medications like Ibuprofen, other NSAIDs, alcohol, that can increase your risk of bleeding with this medication. -Please return to the emergency room if symptoms return or you experience new concerning symptoms. Referrals: Marisol Allen MD [Staff Provider] - Nehemiah Lozoya MD [Staff Provider] - Cyn Swift MD [Medical Doctor] -
--- NOTE | 2018-12-26 15:17 | PN ---
DATE: 12/26/2018 REASON FOR CONSULTATION AND FOLLOWUP: Cardiac evaluation, history of atrial fibrillation, admitted with atrial fibrillation with rapid ventricular rate and altered mental status. SUBJECTIVE: The patient denies any chest pain, shortness of breath, or palpitation. PHYSICAL EXAMINATION: GENERAL: Not in apparent distress. VITAL SIGNS: Temperature afebrile, heart rate 70, blood pressure 139/85. HEENT: PERRLA. Extraocular muscles are intact. NECK: Supple. No carotid bruits. No thyromegaly. CHEST: Clear to auscultation. HEART: S1 and S2. Regular. ABDOMEN: Soft. EXTREMITIES: Clubbing and cyanosis negative. LABORATORY DATA: Blood workup as follows; WBC 6.5, hemoglobin 14, hematocrit 41.8, platelet count 198. Chemistry shows sodium 130, potassium 3.8, chloride 105, carbon dioxide 29, anion gap of 10, BUN 13, creatinine 0.6. The patient had a repeat echocardiography done yesterday that revealed ejection fraction 50%, [id number] aortic regurgitation, mild mitral regurgitation, mild tricuspid regurgitation, RV systolic pressure 44, aortic root is [id number] dilated, ascending aorta is moderately dilated. No pericardial effusion. Follow-up echo in one year of all CT angio monitor the ascending aortic aneurysm recommended. When compared from the previous study dated 09/21/2017, no significant changes except little bit increase in aortic regurgitation noted. The patient also had brain MRI done yesterday that revealed no acute intracranial pathology noted. IMPRESSION: A 68-year-old male with past medical history of transient ischemic attack admitted with altered mental status, history of coronary artery disease with coronary artery bypass surgery, chronic atrial fibrillation, seizure disorder, hypertension, hyperlipidemia. Repeat echo shows [id number] aortic regurgitation yesterday, ascending aortic aneurysm as well as dilated aorta. RECOMMENDATIONS: Continue Eliquis 5 mg p.o. b.i.d. Repeat echo in one-year, suggest serial CAT scan to monitor the ascending aortic aneurysm. Though it was mentioned to the patient, but the patient is confused we will follow closely and aggressive control of blood pressure suggested with beta-claudio, atorvastatin, and Eliquis. We will follow-up with you. Thank you Dr. Carrillo for providing us the opportunity in taking care of the patient No Morin. Marisol Allen MD [facility] # [id number]
== END 2018-12-26 10:44 | disposition home health service (06) | DRG 101 ==
LOC: ED 17:41 → ERH 20:19 → 2RNO 22:57
PROVIDERS: ADMIT Internal Medicine; ATTEND Internal Medicine
DX: G40.909 Epilepsy, unspecified, not intractable, without status epilepticus (principal); I69.354 Hemiplegia and hemiparesis following cerebral infarction affecting left non-dominant side; I47.2 Ventricular tachycardia; I10 Essential (primary) hypertension; I69.320 Aphasia following cerebral infarction; I48.2 Chronic atrial fibrillation; R41.82 Altered mental status, unspecified; I25.10 Atherosclerotic heart disease of native coronary artery without angina pectoris; I08.3 Combined rheumatic disorders of mitral, aortic and tricuspid valves; I27.20 Pulmonary hypertension, unspecified; Z79.01 Long term (current) use of anticoagulants; E78.5 Hyperlipidemia, unspecified; I71.2 Thoracic aortic aneurysm, without rupture; M43.6 Torticollis; R13.10 Dysphagia, unspecified; R32 Unspecified urinary incontinence; Z79.899 Other long term (current) drug therapy; Z95.1 Presence of aortocoronary bypass graft